=== PATIENT | female | born 1935 | race Caucasian/White ===

== ENCOUNTER 2021-05-17 19:56 | Inpatient (IN) | payer OTHER, SELFPAY ==
--- OUTSIDE RECORDS SUMMARY | 2021-05-17 20:00 | XMS REPORT | Continuity of Care Document ---
:1935 Author Organization [facility] t Address [address] [place] [address] Care Team Providers Name Role Phone Unavailable Unavailable Unavailable Payers Payer Name Policy Type Policy Number Effective Date Expiration Date S ource Problems This patient has no known problems. Allergies, Adverse Reactions, Alerts Allergy Allergy Status Severity Reaction(s) Onset Inactive Treating Comm ents Source Name Type Date Date Clinician [place] DA Active U [facility] [place] [facility]: d 00 [facility] peanut FA Active U [facility] 11-25 [place] 00:00: d 00 [facility] chocolat FA Active [facility] flavor 11-25 [place] 00:00: d 00 [facility] tree nut FA Active U [facility] 11-25 [place] 00:00: d 00 [facility] chocolat FA Active U 2016-11 [facility] flavor 01-02 [place] 00:00: d 00 [facility] Penicill DA Active U 2016-11 [facility] ins 12-23 [place] 00:00: d 00 [facility] peanut FA Active U 2016-11 [facility] 12-23 [place] 00:00: d 00 [facility] tree nut FA Active U 2016-11 [facility] 12-23 [place] 00:[facility]: d 00 [facility] Medications This patient has no known medications. Procedures This patient has no known procedures. Results Test Description Test Time Test Comments Results Result Comments Source BASIC METABOLIC PANEL 2019-12-10 06:30:00 Test Item Value Reference Range Interpretation Comme nts SODIUM (test code = NA) 133 mmol/L 137-145 L POTASSIUM (test code = K) 4.4 mmol/L 3.4-5.0 N CHLORIDE (test code = CL) 100 mmol/L 98-107 N CARBON DIOXIDE (test code = 28 mmol/L 22-30 N CO2) GLUCOSE (test code = GLU) 87 mg/dL 74-106 N BLOOD UREA NITROGEN (test code 25 mg/dL 7-17 H = BUN) GLOMERULAR FILTRATION RATE 126 >60 T he estimated glomerular (test code = GFR) filtration rate is computed usingpatient ra ce, age (>18), sex, and serum creatinine. If anyof the neede d data elements are missing the Laboratory cannot compute an estimation of the glomerular filtration rate. CREATININE (test code = CREAT) 0.5 mg/dL 0.5-1.0 N CALCIUM (test code = CA) 8.5 mg/dL 8.4-10.2 N Spec Comments: Order to be discontinued when PN is stoppedComments to Phleb: IF not already drawn [id number] 06:30:00 Test Item Value Reference Range Interpretation Comments PHOSPHOROUS (test code = PHOS) 4.2 mg/dL 2.5-4.5 N Spec Comments: Order to be discontinued when PN is stoppedComments to Phleb: IF not already drawn [id number] 06:30:00 Test Item Value Reference Range Interpretation Comments MAGNESIUM (test code = MAG) 2.0 mg/dL 1.6-2.3 N Spec Comments: Order to be discontinued when PN is stoppedComments to Phleb: IF not already drawn todayCBC W/AUTO [id number] 05:59:00 Test Item Value Reference Range Interpretation Comments WHITE BLOOD CELL (test code = 9.0 x10 3/uL 5.0-12.0 N WBC) RED BLOOD CELL (test code = 2.76 x10 6/uL 4.20-5.40 L RBC) HEMOGLOBIN (test code = HGB) 8.3 g/dL 12.0-16.0 L HEMATOCRIT (test code = HCT) 26.3 % 36.0-46.0 L MEAN CELL VOLUME (test code = 95 fL 81-99 N MCV) MEAN CELL HGB (test code = MCH) 30.1 pg 27-31 N MEAN CELL HGB CONCENTRATION 31.6 g/dL 33-37 L (test code = MCHC) RED CELL DISTRIBUTION WIDTH 15.5 % 11.5-15.5 N (test code = RDW) PLATELET COUNT (test code = 622 x10 3/uL 130-400 H PLT) MEAN PLATELET VOLUME (test code 10.6 fL 9.4-16.4 N = MPV) NEUTROPHIL % (test code = NT%) 73.4 % 43-65 H IMMATURE GRANULOCYTE % (test 0.4 % 0.0-2.0 N code = IG%) LYMPHOCYTE % (test code = LY%) 12.6 % 20.5-45.5 L MONOCYTE % (test code = MO%) 11.9 % 5.5-11.7 H EOSINOPHIL % (test code = EO%) 1.3 % 0.9-2.9 N BASOPHIL % (test code = BA%) 0.4 % 0.2-1.0 N NUCLEATED RBC % (test code = 0.0 % 0-1.0 N NRBC%) NEUTROPHIL # (test code = NT#) 6.60 x10 3/uL 2.2-4.8 H IMMATURE GRANULOCYTE # (test 0.04 x10 3/uL 0-0.03 H code = IG#) LYMPHOCYTE # (test code = LY#) 1.13 x10 3/uL 1.3-2.9 L MONOCYTE # (test code = MO#) 1.07 x10 3/uL 0.3-0.8 H EOSINOPHIL # (test code = EO#) 0.12 x10 3/uL 0.0-0.2 N BASOPHIL # (test code = BA#) 0.04 x10 3/uL 0.0-0.1 N Spec Comments: Order to be discontinued when PN is stoppedComments to Phleb: IF not already drawn [id number] 05:10:00 Test Item Value Reference Range Interpretation Comments PREALBUMIN (test code = PREALB) 11.01 mg/dL 17.6-36.0 L Spec Comments: DAY 3BASIC METABOLIC [id number] 05:08:00 Test Item Value Reference Range Interpretation Comments SODIUM (test code = 134 mmol/L 137-145 L NA) POTASSIUM (test code 4.4 mmol/L 3.4-5.0 N = K) CHLORIDE (test code 99 mmol/L 98-107 N = CL) CARBON DIOXIDE (test 31 mmol/L 22-30 H code = CO2) GLUCOSE (test code = 104 mg/dL 74-106 N GLU) BLOOD UREA NITROGEN 14 mg/dL 7-17 N (test code = BUN) GLOMERULAR 126 >60 The estimated FILTRATION RATE glomerular f iltration (test code = GFR) rate is co mputed usingpatient ra ce, age (>18), sex, and serum creatinine. If anyof the needed data elements are mi ssing the Laboratory cannot compute an giovanni mation of the glomerul ar filtration rate . CREATININE (test < 0.5 mg/dL 0.5-1.0 L code = CREAT) CALCIUM (test code = 8.5 mg/dL 8.4-10.2 N CA) Spec Comments: Order to be discontinued when PN is stoppedComments to Phleb: IF not already drawn todaySpec Comments: [id number] 05:08:00 Test Item Value Reference Range Interpretation Comments PHOSPHOROUS (test code = PHOS) 4.1 mg/dL 2.5-4.5 N Spec Comments: Order to be discontinued when PN is stoppedComments to Phleb: IF not already drawn todaySpec Comments: [id number] 05:08:00 Test Item Value Reference Range Interpretation Comments TRIGLYCERIDES (test 117 mg/dL TRIGLYCE RIDES code = TRIG) REFERENCE RANGE:Normal: < 150 mg/dLBorderline High: 150-199 mg/dLHi gh: 200-499 mg/dLVe ry High: >=500 mg/ dL Spec Comments: Order to be discontinued when PN is stoppedComments to Phleb: IF not already drawn todaySpec Comments: [id number] 05:08:00 Test Item Value Reference Range Interpretation Comments MAGNESIUM (test code = MAG) 2.2 mg/dL 1.6-2.3 N Spec Comments: Order to be discontinued when PN is stoppedComments to Phleb: IF not already drawn todaySpec Comments: [id number] 04:56:00 Test Item Value Reference Range Interpretation Comments PROTHROMBIN TIME 12.6 SECONDS 9.2-12.1 H PATIENT (test code = PTP) INTERNATIONAL NORMAL 1.2 The INR is to be used RATIO (test code = only for monitoring INR) ORAL ANTICOAGULANTTH ERAPY. Indicati on INR Value1. Prophylaxis/danette atment of: Venous Thrombosis, Pul monary Embolism 2.0 - 3.02. Preventi on of systemic emboli sm from: Tiss ue heart valves 2.0 - 3.0 Acute myocardial infa rction (to present systemic emboli sm)* 2.0 - 3.0 Valvular heart disease 2.0 - 3.0 Atrial fibrillation 2.0 - 3.03. Poultry Breeder al prosthetic valv es (high risk) 2.5 - 3.5 * If oral anticoagulant t herapy is elected to preventrecurren t myocardial infa rction, an INR of 2.5-3 .5 isrecommended, consistent with Food and Drug Administrationr ecommen dations. IS PATIENT ON ANTICOAGULANTS ? YESLIST ANTICOAGULANT/ANTI PLT MEDICATION: Enoxaprin (Lovenox)Spec Comments: day 3CBC W/AUTO [id number] 04:54:00 Test Item Value Reference Range Interpretation Comments WHITE BLOOD CELL (test code = 10.8 x10 3/uL 5.0-12.0 N WBC) RED BLOOD CELL (test code = 2.85 x10 6/uL 4.20-5.40 L RBC) HEMOGLOBIN (test code = HGB) 9.0 g/dL 12.0-16.0 L HEMATOCRIT (test code = HCT) 26.7 % 36.0-46.0 L MEAN CELL VOLUME (test code = 94 fL 81-99 N MCV) MEAN CELL HGB (test code = MCH) 31.6 pg 27-31 H MEAN CELL HGB CONCENTRATION 33.7 g/dL 33-37 N (test code = MCHC) RED CELL DISTRIBUTION WIDTH 15.2 % 11.5-15.5 N (test code = RDW) PLATELET COUNT (test code = 655 x10 3/uL 130-400 H PLT) MEAN PLATELET VOLUME (test code 10.5 fL 9.4-16.4 N = MPV) NEUTROPHIL % (test code = NT%) 78.4 % 43-65 H IMMATURE GRANULOCYTE % (test 0.6 % 0.0-2.0 N code = IG%) LYMPHOCYTE % (test code = LY%) 10.1 % 20.5-45.5 L MONOCYTE % (test code = MO%) 9.3 % 5.5-11.7 N EOSINOPHIL % (test code = EO%) 1.1 % 0.9-2.9 N BASOPHIL % (test code = BA%) 0.5 % 0.2-1.0 N NUCLEATED RBC % (test code = 0.0 % 0-1.0 N NRBC%) NEUTROPHIL # (test code = NT#) 8.45 x10 3/uL 2.2-4.8 H IMMATURE GRANULOCYTE # (test 0.06 x10 3/uL 0-0.03 H code = IG#) LYMPHOCYTE # (test code = LY#) 1.09 x10 3/uL 1.3-2.9 L MONOCYTE # (test code = MO#) 1.00 x10 3/uL 0.3-0.8 H EOSINOPHIL # (test code = EO#) 0.12 x10 3/uL 0.0-0.2 N BASOPHIL # (test code = BA#) 0.05 x10 3/uL 0.0-0.1 N - XR ABDOMEN 1 [id number] 11:33:00 [place]: St: ADM Name: JOON MILLER [facility] : 1935 Age/S: 84/F [address] Unit#: [id number] Loc: C.[address] [place] [address] Phys: Karoline Koehler [facility] Acct: [id number] Dis Date: Status: ADM IN PHONE #: [phone] Exam Date: 12/08/2019 1100 FAX #: [phone] Reason: ILEUS EXAMS: CPT CODE: [id number] XR ABDOMEN 1 V [id number] EXAM: Abdomen 1 view LOCATION: [id number]: ILEUS COMPARISON: 12/04/2019 FINDINGS: Single frontal viewof the abdomen. Unchanged gas-filled loops of central small bowel. Contrast is identified throughout the colon. No suspicious calcifications identified. No acute osseous findings. IMPRESSION: Unchanged gas-filled loops of central small bowel. Contrast has progressed to the rectosigmoid. at 1133 Reported and signed by: Girish DOTY, Kishore CC: Technologist: Nimo Westfall; STUDENT 2ND YEAR Trnscrd Date/Time/By: 12/08/2019 (7884) : By: ValeriaHV2 PAGE 1 Signed Report [place]: St: ADM Name: JOON MILLER [facility] : 1935 Age/S: 84/F [address] Unit #: [id number] Loc: C.[address] [place] [address] Phys: Karoline Koehler [facility] Acct: [id number] Dis Date: Status: ADM IN PHONE #: [phone] Exam Date: 12/08/2019 1100 FAX #: [phone] Reason: ILEUS EXAMS: CPT CODE: [id number] XR ABDOMEN 1 V [id number] <Continued> Orig Print D/T: S: 12/08/2019 (6096) PAGE 2 Signed ReportBASIC METABOLIC [id number] 06:10:00 Test Item Value Reference Range Interpretation Comments SODIUM (test code = 135 mmol/L 137-145 L NA) POTASSIUM (test code 4.2 mmol/L 3.4-5.0 N = K) CHLORIDE (test code 100 mmol/L 98-107 N = CL) CARBON DIOXIDE (test 29 mmol/L 22-30 N code = CO2) GLUCOSE (test code = 114 mg/dL 74-106 H GLU) BLOOD UREA NITROGEN 15 mg/dL 7-17 N (test code = BUN) GLOMERULAR 126 >60 The estimated FILTRATION RATE glomerular f iltration (test code = GFR) rate is co mputed usingpatient ra ce, age (>18), sex, and serum creatinine. If anyof the needed data elements are mi ssing the Laboratory cannot compute an giovanni mation of the glomerul ar filtration rate . CREATININE (test < 0.5 mg/dL 0.5-1.0 L code = CREAT) CALCIUM (test code = 8.2 mg/dL 8.4-10.2 L CA) Spec Comments: IF not already drawn todaySpec Comments: [id number] 2019-12-08 06:10:00 Test Item Value Reference Range Interpretation Comments PHOSPHOROUS (test code = PHOS) 3.9 mg/dL 2.5-4.5 N Spec Comments: IF not already drawn todaySpec Comments: [id number] 2019-12-08 06:10:00 Test Item Value Reference Range Interpretation Comments TRIGLYCERIDES (test 123 mg/dL TRIGLYCE RIDES code = TRIG) REFERENCE RANGE:Normal: < 150 mg/dLBorderline High: 150-199 mg/dLHi gh: 200-499 mg/dLVe ry High: >=500 mg/ dL Spec Comments: IF not already drawn todaySpec Comments: [id number] 06:10:00 Test Item Value Reference Range Interpretation Comments MAGNESIUM (test code = MAG) 2.3 mg/dL 1.6-2.3 N Spec Comments: IF not already drawn todaySpec Comments: [id number] [id number] 06:02:00 Test Item Value Reference Range Interpretation Comments SODIUM (test code = 135 mmol/L 137-145 L NA) POTASSIUM (test code 4.2 mmol/L 3.4-5.0 N = K) CHLORIDE (test code 100 mmol/L 98-107 N = CL) CARBON DIOXIDE (test 29 mmol/L 22-30 N code = CO2) GLUCOSE (test code = 114 mg/dL 74-106 H GLU) BLOOD UREA NITROGEN 15 mg/dL 7-17 N (test code = BUN) GLOMERULAR 126 >60 The estimated FILTRATION RATE glomerular f iltration (test code = GFR) rate is co mputed usingpatient ra ce, age (>18), sex, and serum creatinine. If anyof the needed data elements are mi ssing the Laboratory cannot compute an giovanni mation of the glomerul ar filtration rate . CREATININE (test < 0.5 mg/dL 0.5-1.0 L code = CREAT) CALCIUM (test code = 8.2 mg/dL 8.4-10.2 L CA) Spec Comments: IF not already drawn todaySpec Comments: [id number] 2019-12-08 06:02:00 Test Item Value Reference Range Interpretation Comments PHOSPHOROUS (test code = PHOS) mg/dL 2.5-4.5 Spec Comments: IF not already drawn todaySpec Comments: [id number] 2019-12-08 06:02:00 Test Item Value Reference Range Interpretation Comments TRIGLYCERIDES (test code = TRIG) mg/dL Spec Comments: IF not already drawn todaySpec Comments: [id number] 06:02:00 Test Item Value Reference Range Interpretation Comments MAGNESIUM (test code = MAG) mg/dL 1.6-2.3 Spec Comments: IF not already drawn todaySpec Comments: [id number] 2019-12-08 05:47:00 Test Item Value Reference Range Interpretation Comments PROTHROMBIN TIME 12.5 SECONDS 9.2-12.1 H PATIENT (test code = PTP) INTERNATIONAL NORMAL 1.2 The INR is to be used RATIO (test code = only for monitoring INR) ORAL ANTICOAGULANTTH ERAPY. Indicati on INR Value1. Prophylaxis/danette atment of: Venous Thrombosis, Pul monary Embolism 2.0 - 3.02. Preventi on of systemic emboli sm from: Tiss ue heart valves 2.0 - 3.0 Acute myocardial infa rction (to present systemic emboli sm)* 2.0 - 3.0 Valvular heart disease 2.0 - 3.0 Atrial fibrillation 2.0 - 3.03. Poultry Breeder al prosthetic valv es (high risk) 2.5 - 3.5 * If oral anticoagulant t herapy is elected to preventrecurren t myocardial infa rction, an INR of 2.5-3 .5 isrecommended, consistent with Food and Drug Administrationr ecommen dations. IS PATIENT ON ANTICOAGULANTS ? YESLIST ANTICOAGULANT/ANTI PLT MEDICATION: Enoxaprin (Lovenox)Spec Comments: [id number] W/AUTO [id number] 05:39:00 Test Item Value Reference Range Interpretation Comments WHITE BLOOD CELL (test code = 13.7 x10 3/uL 5.0-12.0 H WBC) RED BLOOD CELL (test code = 3.05 x10 6/uL 4.20-5.40 L RBC) HEMOGLOBIN (test code = HGB) 9.3 g/dL 12.0-16.0 L HEMATOCRIT (test code = HCT) 29.0 % 36.0-46.0 L MEAN CELL VOLUME (test code = 95 fL 81-99 N MCV) MEAN CELL HGB (test code = 30.5 pg 27-31 N MCH) MEAN CELL HGB CONCENTRATION 32.1 g/dL 33-37 L (test code = MCHC) RED CELL DISTRIBUTION WIDTH 15.7 % 11.5-15.5 H (test code = RDW) PLATELET COUNT (test code = 562 x10 3/uL 130-400 H PLT) MEAN PLATELET VOLUME (test 10.3 fL 9.4-16.4 N code = MPV) NEUTROPHIL % (test code = NT%) 82.0 % 43-65 H IMMATURE GRANULOCYTE % (test 0.5 % 0.0-2.0 N code = IG%) LYMPHOCYTE % (test code = LY%) 7.6 % 20.5-45.5 L MONOCYTE % (test code = MO%) 8.9 % 5.5-11.7 N EOSINOPHIL % (test code = EO%) 0.7 % 0.9-2.9 L BASOPHIL % (test code = BA%) 0.3 % 0.2-1.0 N NUCLEATED RBC % (test code = 0.0 % 0-1.0 N NRBC%) NEUTROPHIL # (test code = NT#) 11.26 x10 3/uL 2.2-4.8 H IMMATURE GRANULOCYTE # (test 0.07 x10 3/uL 0-0.03 H code = IG#) LYMPHOCYTE # (test code = LY#) 1.04 x10 3/uL 1.3-2.9 L MONOCYTE # (test code = MO#) 1.22 x10 3/uL 0.3-0.8 H EOSINOPHIL # (test code = EO#) 0.09 x10 3/uL 0.0-0.2 N BASOPHIL # (test code = BA#) 0.04 x10 3/uL 0.0-0.1 N BASIC METABOLIC [id number] 05:30:00 Test Item Value Reference Range Interpretation Comments SODIUM (test code = 135 mmol/L 137-145 L NA) POTASSIUM (test code 4.3 mmol/L 3.4-5.0 N = K) CHLORIDE (test code 98 mmol/L 98-107 N = CL) CARBON DIOXIDE (test 31 mmol/L 22-30 H code = CO2) GLUCOSE (test code = 104 mg/dL 74-106 N GLU) BLOOD UREA NITROGEN 12 mg/dL 7-17 N (test code = BUN) GLOMERULAR 126 >60 The estimated FILTRATION RATE glomerular f iltration (test code = GFR) rate is co mputed usingpatient ra ce, age (>18), sex, and serum creatinine. If anyof the needed data elements are mi ssing the Laboratory cannot compute an giovanni mation of the glomerul ar filtration rate . CREATININE (test < 0.5 mg/dL 0.5-1.0 L code = CREAT) CALCIUM (test code = 8.7 mg/dL 8.4-10.2 N CA) [id number] 05:30:00 Test Item Value Reference Range Interpretation Comments PHOSPHOROUS (test code = PHOS) 4.2 mg/dL 2.5-4.5 N [id number] 05:30:00 Test Item Value Reference Range Interpretation Comments MAGNESIUM (test code = MAG) 2.2 mg/dL 1.6-2.3 N BASIC METABOLIC [id number] 05:28:00 Test Item Value Reference Range Interpretation Comments SODIUM (test code = 135 mmol/L 137-145 L NA) POTASSIUM (test code 4.3 mmol/L 3.4-5.0 N = K) CHLORIDE (test code 98 mmol/L 98-107 N = CL) CARBON DIOXIDE (test 31 mmol/L 22-30 H code = CO2) GLUCOSE (test code = 104 mg/dL 74-106 N GLU) BLOOD UREA NITROGEN 12 mg/dL 7-17 N (test code = BUN) GLOMERULAR 126 >60 The estimated FILTRATION RATE glomerular f iltration (test code = GFR) rate is co mputed usingpatient ra ce, age (>18), sex, and serum creatinine. If anyof the needed data elements are mi ssing the Laboratory cannot compute an giovanni mation of the glomerul ar filtration rate . CREATININE (test < 0.5 mg/dL 0.5-1.0 L code = CREAT) CALCIUM (test code = 8.7 mg/dL 8.4-10.2 N CA) [id number] 05:28:00 Test Item Value Reference Range Interpretation Comments PHOSPHOROUS (test code = PHOS) mg/dL 2.5-4.5 [id number] 05:28:00 Test Item Value Reference Range Interpretation Comments MAGNESIUM (test code = MAG) mg/dL 1.6-2.3 CBC W/AUTO [id number] 05:24:00 Test Item Value Reference Range Interpretation Comments WHITE BLOOD CELL (test code = 13.6 x10 3/uL 5.0-12.0 H WBC) RED BLOOD CELL (test code = 3.16 x10 6/uL 4.20-5.40 L RBC) HEMOGLOBIN (test code = HGB) 9.7 g/dL 12.0-16.0 L HEMATOCRIT (test code = HCT) 29.7 % 36.0-46.0 L MEAN CELL VOLUME (test code = 94 fL 81-99 N MCV) MEAN CELL HGB (test code = 30.7 pg 27-31 N MCH) MEAN CELL HGB CONCENTRATION 32.7 g/dL 33-37 L (test code = MCHC) RED CELL DISTRIBUTION WIDTH 15.3 % 11.5-15.5 N (test code = RDW) PLATELET COUNT (test code = 559 x10 3/uL 130-400 H PLT) MEAN PLATELET VOLUME (test 10.3 fL 9.4-16.4 N code = MPV) NEUTROPHIL % (test code = NT%) 80.6 % 43-65 H IMMATURE GRANULOCYTE % (test 0.4 % 0.0-2.0 N code = IG%) LYMPHOCYTE % (test code = LY%) 8.0 % 20.5-45.5 L MONOCYTE % (test code = MO%) 10.1 % 5.5-11.7 N EOSINOPHIL % (test code = EO%) 0.7 % 0.9-2.9 L BASOPHIL % (test code = BA%) 0.2 % 0.2-1.0 N NUCLEATED RBC % (test code = 0.0 % 0-1.0 N NRBC%) NEUTROPHIL # (test code = NT#) 10.97 x10 3/uL 2.2-4.8 H IMMATURE GRANULOCYTE # (test 0.06 x10 3/uL 0-0.03 H code = IG#) LYMPHOCYTE # (test code = LY#) 1.09 x10 3/uL 1.3-2.9 L MONOCYTE # (test code = MO#) 1.37 x10 3/uL 0.3-0.8 H EOSINOPHIL # (test code = EO#) 0.09 x10 3/uL 0.0-0.2 N BASOPHIL # (test code = BA#) 0.03 x10 3/uL 0.0-0.1 N BASIC METABOLIC [id number] 06:29:00 Test Item Value Reference Range Interpretation Comments SODIUM (test code = 135 mmol/L 137-145 L NA) POTASSIUM (test code 4.2 mmol/L 3.4-5.0 N = K) CHLORIDE (test code 99 mmol/L 98-107 N = CL) CARBON DIOXIDE (test 31 mmol/L 22-30 H code = CO2) GLUCOSE (test code = 100 mg/dL 74-106 N GLU) BLOOD UREA NITROGEN 14 mg/dL 7-17 N (test code = BUN) GLOMERULAR 126 >60 The estimated FILTRATION RATE glomerular f iltration (test code = GFR) rate is co mputed usingpatient ra ce, age (>18), sex, and serum creatinine. If anyof the needed data elements are mi ssing the Laboratory cannot compute an giovanni mation of the glomerul ar filtration rate . CREATININE (test < 0.5 mg/dL 0.5-1.0 L code = CREAT) CALCIUM (test code = 8.4 mg/dL 8.4-10.2 N CA) [id number] 06:29:00 Test Item Value Reference Range Interpretation Comments PHOSPHOROUS (test code = PHOS) 4.1 mg/dL 2.5-4.5 N [id number] 06:29:00 Test Item Value Reference Range Interpretation Comments MAGNESIUM (test code = MAG) 2.2 mg/dL 1.6-2.3 N BASIC METABOLIC [id number] 06:28:00 Test Item Value Reference Range Interpretation Comments SODIUM (test code = 135 mmol/L 137-145 L NA) POTASSIUM (test code 4.2 mmol/L 3.4-5.0 N = K) CHLORIDE (test code 99 mmol/L 98-107 N = CL) CARBON DIOXIDE (test 31 mmol/L 22-30 H code = CO2) GLUCOSE (test code = 100 mg/dL 74-106 N GLU) BLOOD UREA NITROGEN 14 mg/dL 7-17 N (test code = BUN) GLOMERULAR 126 >60 The estimated FILTRATION RATE glomerular f iltration (test code = GFR) rate is co mputed usingpatient ra ce, age (>18), sex, and serum creatinine. If anyof the needed data elements are mi ssing the Laboratory cannot compute an giovanni mation of the glomerul ar filtration rate . CREATININE (test < 0.5 mg/dL 0.5-1.0 L code = CREAT) CALCIUM (test code = 8.4 mg/dL 8.4-10.2 N CA) [id number] 06:28:00 Test Item Value Reference Range Interpretation Comments PHOSPHOROUS (test code = PHOS) mg/dL 2.5-4.5 [id number] 06:28:00 Test Item Value Reference Range Interpretation Comments MAGNESIUM (test code = MAG) mg/dL 1.6-2.3 CBC W/AUTO [id number] 06:00:00 Test Item Value Reference Range Interpretation Comments WHITE BLOOD CELL (test code = 13.4 x10 3/uL 5.0-12.0 H WBC) RED BLOOD CELL (test code = 3.02 x10 6/uL 4.20-5.40 L RBC) HEMOGLOBIN (test code = HGB) 9.1 g/dL 12.0-16.0 L HEMATOCRIT (test code = HCT) 28.7 % 36.0-46.0 L MEAN CELL VOLUME (test code = 95 fL 81-99 N MCV) MEAN CELL HGB (test code = 30.1 pg 27-31 N MCH) MEAN CELL HGB CONCENTRATION 31.7 g/dL 33-37 L (test code = MCHC) RED CELL DISTRIBUTION WIDTH 15.7 % 11.5-15.5 H (test code = RDW) PLATELET COUNT (test code = 467 x10 3/uL 130-400 H PLT) MEAN PLATELET VOLUME (test 10.7 fL 9.4-16.4 N code = MPV) NEUTROPHIL % (test code = NT%) 79.3 % 43-65 H IMMATURE GRANULOCYTE % (test 0.4 % 0.0-2.0 N code = IG%) LYMPHOCYTE % (test code = LY%) 10.6 % 20.5-45.5 L MONOCYTE % (test code = MO%) 8.7 % 5.5-11.7 N EOSINOPHIL % (test code = EO%) 0.9 % 0.9-2.9 N BASOPHIL % (test code = BA%) 0.1 % 0.2-1.0 L NUCLEATED RBC % (test code = 0.0 % 0-1.0 N NRBC%) NEUTROPHIL # (test code = NT#) 10.61 x10 3/uL 2.2-4.8 H IMMATURE GRANULOCYTE # (test 0.06 x10 3/uL 0-0.03 H code = IG#) LYMPHOCYTE # (test code = LY#) 1.42 x10 3/uL 1.3-2.9 N MONOCYTE # (test code = MO#) 1.16 x10 3/uL 0.3-0.8 H EOSINOPHIL # (test code = EO#) 0.12 x10 3/uL 0.0-0.2 N BASOPHIL # (test code = BA#) 0.02 x10 3/uL 0.0-0.1 N BASIC METABOLIC [id number] 07:05:00 Test Item Value Reference Range Interpretation Comments SODIUM (test code = 136 mmol/L 137-145 L NA) POTASSIUM (test code 4.3 mmol/L 3.4-5.0 N = K) CHLORIDE (test code 100 mmol/L 98-107 N = CL) CARBON DIOXIDE (test 33 mmol/L 22-30 H code = CO2) GLUCOSE (test code = 109 mg/dL 74-106 H GLU) BLOOD UREA NITROGEN 20 mg/dL 7-17 H (test code = BUN) GLOMERULAR 126 >60 The estimated FILTRATION RATE glomerular f iltration (test code = GFR) rate is co mputed usingpatient ra ce, age (>18), sex, and serum creatinine. If anyof the needed data elements are mi ssing the Laboratory cannot compute an giovanni mation of the glomerul ar filtration rate . CREATININE (test < 0.5 mg/dL 0.5-1.0 L code = CREAT) CALCIUM (test code = 8.3 mg/dL 8.4-10.2 L CA) [id number] 07:05:00 Test Item Value Reference Range Interpretation Comments PHOSPHOROUS (test code = PHOS) 3.8 mg/dL 2.5-4.5 N [id number] 07:05:00 Test Item Value Reference Range Interpretation Comments TRIGLYCERIDES (test 139 mg/dL TRIGLYCE RIDES code = TRIG) REFERENCE RANGE:Normal: < 150 mg/dLBorderline High: 150-199 mg/dLHi gh: 200-499 mg/dLVe ry High: >=500 mg/ dL [id number] 07:05:00 Test Item Value Reference Range Interpretation Comments MAGNESIUM (test code = MAG) 2.4 mg/dL 1.6-2.3 H [id number] 07:05:00 Test Item Value Reference Range Interpretation Comments PREALBUMIN (test code = PREALB) 13.60 mg/dL 17.6-36.0 L BASIC METABOLIC [id number] 06:54:00 Test Item Value Reference Range Interpretation Comments SODIUM (test code = 136 mmol/L 137-145 L NA) POTASSIUM (test code 4.3 mmol/L 3.4-5.0 N = K) CHLORIDE (test code 100 mmol/L 98-107 N = CL) CARBON DIOXIDE (test 33 mmol/L 22-30 H code = CO2) GLUCOSE (test code = 109 mg/dL 74-106 H GLU) BLOOD UREA NITROGEN 20 mg/dL 7-17 H (test code = BUN) GLOMERULAR 126 >60 The estimated FILTRATION RATE glomerular f iltration (test code = GFR) rate is co mputed usingpatient ra ce, age (>18), sex, and serum creatinine. If anyof the needed data elements are mi ssing the Laboratory cannot compute an giovanni mation of the glomerul ar filtration rate . CREATININE (test < 0.5 mg/dL 0.5-1.0 L code = CREAT) CALCIUM (test code = 8.3 mg/dL 8.4-10.2 L CA) [id number] 06:54:00 Test Item Value Reference Range Interpretation Comments PHOSPHOROUS (test code = PHOS) 3.8 mg/dL 2.5-4.5 N [id number] 06:54:00 Test Item Value Reference Range Interpretation Comments TRIGLYCERIDES (test 139 mg/dL TRIGLYCE RIDES code = TRIG) REFERENCE RANGE:Normal: < 150 mg/dLBorderline High: 150-199 mg/dLHi gh: 200-499 mg/dLVe ry High: >=500 mg/ dL [id number] 06:54:00 Test Item Value Reference Range Interpretation Comments MAGNESIUM (test code = MAG) 2.4 mg/dL 1.6-2.3 H [id number] 06:54:00 Test Item Value Reference Range Interpretation Comments PREALBUMIN (test code = PREALB) mg/dL 17.6-36.0 PROTHROMBIN [id number] 06:40:00 Test Item Value Reference Range Interpretation Comments PROTHROMBIN TIME 11.9 SECONDS 9.2-12.1 N PATIENT (test code = PTP) INTERNATIONAL NORMAL 1.1 The INR is to be used RATIO (test code = only for monitoring INR) ORAL ANTICOAGULANTTH ERAPY. Indicati on INR Value1. Prophylaxis/danette atment of: Venous Thrombosis, Pul monary Embolism 2.0 - 3.02. Preventi on of systemic emboli sm from: Tiss ue heart valves 2.0 - 3.0 Acute myocardial infa rction (to present systemic emboli sm)* 2.0 - 3.0 Valvular heart disease 2.0 - 3.0 Atrial fibrillation 2.0 - 3.03. Poultry Breeder al prosthetic valv es (high risk) 2.5 - 3.5 * If oral anticoagulant t herapy is elected to preventrecurren t myocardial infa rction, an INR of 2.5-3 .5 isrecommended, consistent with Food and Drug Administrationr ecommen dations. IS PATIENT ON ANTICOAGULANTS ? NOCBC W/AUTO [id number] 06:36:00 Test Item Value Reference Range Interpretation Comments WHITE BLOOD CELL (test code = 13.2 x10 3/uL 5.0-12.0 H WBC) RED BLOOD CELL (test code = 2.94 x10 6/uL 4.20-5.40 L RBC) HEMOGLOBIN (test code = HGB) 9.0 g/dL 12.0-16.0 L HEMATOCRIT (test code = HCT) 28.0 % 36.0-46.0 L MEAN CELL VOLUME (test code = 95 fL 81-99 N MCV) MEAN CELL HGB (test code = 30.6 pg 27-31 N MCH) MEAN CELL HGB CONCENTRATION 32.1 g/dL 33-37 L (test code = MCHC) RED CELL DISTRIBUTION WIDTH 15.4 % 11.5-15.5 N (test code = RDW) PLATELET COUNT (test code = 396 x10 3/uL 130-400 N PLT) MEAN PLATELET VOLUME (test 10.8 fL 9.4-16.4 N code = MPV) NEUTROPHIL % (test code = NT%) 80.0 % 43-65 H IMMATURE GRANULOCYTE % (test 0.6 % 0.0-2.0 N code = IG%) LYMPHOCYTE % (test code = LY%) 8.8 % 20.5-45.5 L MONOCYTE % (test code = MO%) 9.0 % 5.5-11.7 N EOSINOPHIL % (test code = EO%) 1.4 % 0.9-2.9 N BASOPHIL % (test code = BA%) 0.2 % 0.2-1.0 N NUCLEATED RBC % (test code = 0.0 % 0-1.0 N NRBC%) NEUTROPHIL # (test code = NT#) 10.52 x10 3/uL 2.2-4.8 H IMMATURE GRANULOCYTE # (test 0.08 x10 3/uL 0-0.03 H code = IG#) LYMPHOCYTE # (test code = LY#) 1.16 x10 3/uL 1.3-2.9 L MONOCYTE # (test code = MO#) 1.18 x10 3/uL 0.3-0.8 H EOSINOPHIL # (test code = EO#) 0.19 x10 3/uL 0.0-0.2 N BASOPHIL # (test code = BA#) 0.02 x10 3/uL 0.0-0.1 N - XR ABDOMEN [id number] 16:55:00 FAX: Aravind Gamble MD [phone] [place]: [address]: ADM Name: JOON MILLER [facility] : 1935 Age/S: 84/F [address] Unit#: [id number] Loc: C.[address] [place] [address] Phys: Aravind Vergara MD Acct: [id number] Dis Date: Status: ADM IN PHONE #: [phone] Exam Date: 12/04/2019 1635 FAX #: [phone] Reason: R/O ILEUS EXAMS: CPT CODE: [id number] XR ABDOMEN 2V 52425 EXAM: Abdominal xray INDICATION: R/O ILEUS LOCATION CODE: C3 COMPARISON: 12/03/2019 TECHNIQUE: 2 views, Supine and upright abdominal radiographs. DISCUSSION: Residual enteric contrast is still in the distal small bowel and colon extending to the splenic flexure. 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 No subdiaphragmatic free air. Osseous structure demonstrate degenerative changes of lumbar spine. IMPRESSION: 1. Status post laparotomy. 2. Delayed progression of enteric contrast. at 1655 Reported and signed by: Gucci Robert M.D. CC: Aravind Vergara MD Technologist: LUCRETIA YU RT (R) Trnscrd Date/Time/By: 12/04/2019 (0894): By: ValeriaHPD PAGE 1 Signed Report FAX: Aravind Gamble MD [phone] [place]: St: [facility]: [facility] 1935 Age/S: 84/F [address] Unit #: [id number] Loc: C.[address] [place] [address] Phys: Aravind Vergara MD Acct: [id number] Dis Date: Status: ADM IN PHONE #: [phone] Exam Date: 12/04/2019 1635 FAX #: [phone] Reason: R/O ILEUS EXAMS: CPT CODE: [id number] XR ABDOMEN 2V 53888 <Continued> Orig Print D/T: S: 12/04/2019 (6018) PAGE 2 Signed ReportBASIC METABOLIC [id number] 05:46:00 Test Item Value Reference Range Interpretation Comments SODIUM (test code = 137 mmol/L 137-145 N NA) POTASSIUM (test code 4.0 mmol/L 3.4-5.0 N = K) CHLORIDE (test code = 101 mmol/L 98-107 N CL) CARBON DIOXIDE (test 32 mmol/L 22-30 H code = CO2) GLUCOSE (test code = 92 mg/dL 74-106 N GLU) BLOOD UREA NITROGEN 21 mg/dL 7-17 H (test code = BUN) GLOMERULAR FILTRATION 126 >60 The es timated RATE (test code = glomerular filtration GFR) rate is compute d usingpatient ra ce, age (>18), sex, and serum creatinine. If anyof the needed data elements are mi ssing the Laboratory cannot compute an giovanni mation of the glomerul ar filtration rate . CREATININE (test code 0.5 mg/dL 0.5-1.0 N = CREAT) CALCIUM (test code = 8.3 mg/dL 8.4-10.2 L CA) [id number] 05:46:00 Test Item Value Reference Range Interpretation Comments PHOSPHOROUS (test code = PHOS) 4.3 mg/dL 2.5-4.5 N [id number] 05:46:00 Test Item Value Reference Range Interpretation Comments MAGNESIUM (test code = MAG) 2.1 mg/dL 1.6-2.3 N CBC W/AUTO [id number] 05:31:00 Test Item Value Reference Range Interpretation Comments WHITE BLOOD CELL (test code = 12.0 x10 3/uL 5.0-12.0 N WBC) RED BLOOD CELL (test code = 3.01 x10 6/uL 4.20-5.40 L RBC) HEMOGLOBIN (test code = HGB) 9.2 g/dL 12.0-16.0 L HEMATOCRIT (test code = HCT) 28.4 % 36.0-46.0 L MEAN CELL VOLUME (test code = 94 fL 81-99 N MCV) MEAN CELL HGB (test code = MCH) 30.6 pg 27-31 N MEAN CELL HGB CONCENTRATION 32.4 g/dL 33-37 L (test code = MCHC) RED CELL DISTRIBUTION WIDTH 15.3 % 11.5-15.5 N (test code = RDW) PLATELET COUNT (test code = 350 x10 3/uL 130-400 N PLT) MEAN PLATELET VOLUME (test code 10.9 fL 9.4-16.4 N = MPV) NEUTROPHIL % (test code = NT%) 74.7 % 43-65 H IMMATURE GRANULOCYTE % (test 0.5 % 0.0-2.0 N code = IG%) LYMPHOCYTE % (test code = LY%) 14.4 % 20.5-45.5 L MONOCYTE % (test code = MO%) 8.8 % 5.5-11.7 N EOSINOPHIL % (test code = EO%) 1.6 % 0.9-2.9 N BASOPHIL % (test code = BA%) 0.0 % 0.2-1.0 L NUCLEATED RBC % (test code = 0.0 % 0-1.0 N NRBC%) NEUTROPHIL # (test code = NT#) 8.96 x10 3/uL 2.2-4.8 H IMMATURE GRANULOCYTE # (test 0.06 x10 3/uL 0-0.03 H code = IG#) LYMPHOCYTE # (test code = LY#) 1.72 x10 3/uL 1.3-2.9 N MONOCYTE # (test code = MO#) 1.05 x10 3/uL 0.3-0.8 H EOSINOPHIL # (test code = EO#) 0.19 x10 3/uL 0.0-0.2 N BASOPHIL # (test code = BA#) 0.00 x10 3/uL 0.0-0.1 N [id number] 20:55:00 Test Item Value Reference Range Interpretation Comments GLUBED (test code = GLUBED) 103 MG/DL 74-106 N [id number] 16:41:00 Test Item Value Reference Range Interpretation Comments GLUBED (test code = GLUBED) 99 MG/DL 74-106 N HERNIA [id number] 16:19:00 RUN DATE: 12/03/19 [facility] PAGE 1 RUN TIME: 1619 Specimen Inquiry RUN USER: INTERFACE PATIENT: JOON MILLER LOC: [facility] U #: [id number] AGE/SX: 84/F ROOM: [facility] RE11/26/19REG DR: Yudy Abarca DO : [birth year] BED: A DIS: STATUS: ADM IN TLOC: SPEC #: [id number] RECD: 11/27/19-1237 STATUS: ULICES HOGUE #: [id number] CHAGO: 11/26/19-[address]: Aravind Vergara MD ENTERED: 11/27/19-123 SP TYPE: HERNIA SAC OTHR DR: No Primary or Family Physician Sheila Handy MD, Ronald W MD Redmon, Jonathan Lewis MDORDERED: LEVEL II, PATHGM4, SPECSTAIN I/2, # OF BLOCKS/7, # OF SLIDES/7, IHC AB STAIN I, IHC AB STAIN II/5 TISSUES: A. HERNIA SAC - VENTRAL B. SMALL BOWEL - TISSUE CLINICAL HISTORY BOWEL OBSTRUCTION Per electronic medical record: bilateral adrenal lesions, lung left lower lobe calcified granuloma COMMENT Negative special stains do not absolutely rule out infection. FINAL MICROSCOPIC DIAGNOSIS A) VENTRAL HERNIA, HERNIORRHAPHY: HERNIA SAC WITH ACUTE AND CHRONIC INFLAMMATION B) SMALL BOWEL, PARTAL EXCISION: SEROSAL FIBROUS ADHESIONS FOCAL SUBSEROSAL XANTHOGRANULOMATOUS INFLAMMATION SPECIAL STAINS FOR ACID FAST BACILLI AND FUNGAL FORMS: NEGATIVE RESECTION MARGINS: VIABLE CPT 18734, 53226, 88485 X2, 56664, 77107 X5 GROSS DESCRIPTION Specimen A: In formalin labeled with the patient's name, medical record number and "ventral hernia sac" is a 3.5 x 2.0 x 0.6 cm pink-coombs to manley-white portion of fibromembranous and adipose tissue. Sectioning reveals no discrete masses. Ivf Embryologist sections are submitted in A1. Specimen B: Received fresh labeled with the patient's name, medical record number and "small bowel" is a 12.0 cm in length x 8.0 cm in circumference segment of small CONTINUED ON NEXT PAGE RUN DATE: 12/03/19 [facility] PAGE 2 RUN TIME: 1619 Specimen Inquiry RUN USER: INTERFACE - SPEC #: [id number] PATIENT: JOON MILLER #[id number] (Continued) GROSS DESCRIPTION (Continued) bowel. The serosal surface is purple-coombs, dusky, focally ragged and exhibits fibrous adhesions. The specimen is opened to reveal pink-coombs, dusky, focally edematous mucosa throughout. A central staple line is noted along the entire length of the specimen, with associated yellow-green exudate. No discrete masses or perforations are noted. Section Code: B1-B2, parallel resection margins; B3, community engagement representative sections of staple line; B4-B6, community engagement representative sections of small bowel. SSA/DB/tb MICROSCOPIC DESCRIPTION Immunohistochemical stains (xanthogranulomatous inflammation): positive: CD68, CD163 negative: CAM5.2, calretinin, pax8, S100 The immunohistochemistry test was developed and its performance characteristics determined by [facility] [employer]. It has not been cleared or approved by the U.S. Food and Drug Administration. The FDA has determined that such clearance or approval is not necessary. The test is used for clinical purposes. It should not be regarded as investigational or for research. This laboratory is certified under the Clinical Laboratory Improvement Amendments of 1988 (CLIA-88) as qualified to perform high- complexity clinical laboratory testing. Signed SIGNATURE ON FILE Horacio Abreu MD 12/03/19 1619 END OF REPORT [id number] 15:15:00 Test Item Value Reference Range Interpretation Comments GLUKARMEN (test code = GLUBED) 109 MG/DL 74-106 H - XR ABDOMEN [id number] 10:04:00 FAX: Aravind Gamble MD [phone] [place]: St: ADM Name: JOON MILLER [facility] : 1935 Age/S: 84/F [address] Unit#: [id number] Loc: C.[address] [place] [address] Phys: Aravind Vergara MD Acct: [id number] Dis Date: Status: ADM IN PHONE #: [phone] Exam Date: 12/03/2019 0947 FAX #: [phone] Reason: f/u ileus. s/p bowel resection EXAMS: CPT CODE: [id number] XR ABDOMEN 2V 62343 EXAM: Abdominal xray INDICATION: f/u ileus. s/pbowel resection LOCATION CODE: C3 COMPARISON: 11/29/2019TECHNIQUE: 2 views, Supine and upright abdominal radiographs. DISCUSSION: Previously noted NG tube have been removed. Patient is status post recent laparotomy. Overlying skin kandy at midline is again seen. Mildly distended loop of small bowel with residual enteric contrast is seen. Otherwise the majority of the enteric contrastappears to be within the redundant distal sigmoid colon. No subdiaphragmatic free air. No blunting and haziness silhouetting the costophrenic angle, bilaterally. Right is greater than left. IMPRESSION: 1. Interval removal NG tube. 2. Status post laparotomy. 3. Enteric contrast is extending into the distal col on. at 1004 Reported and signed by: Gucci Robert M.D. CC: Aravind Vergara MD Technologist: Nimo Westfall Trnscrd Date/Time/By: 12/03/2019 (1004) : By: ValeriaHPGladys PAGE 1 Signed Report FAX:Y Aravind Vergraa MD [phone] [place]: St: ADM Name: JOON MILLER [facility] : 1935 Age/S: 84/F [address] Unit #: [id number] Loc: C.[address] [place] [address] Phys: rAavind Vergara MD Acct: [id number] Dis Date: Status: ADM IN PHONE #: [phone] Exam Date: 12/03/2019 0947 FAX #: [phone] Reason: f/u ileus. s/p bowel resection EXAMS: CPT CODE: [id number] XR ABDOMEN 2V 82810 <Continued> Orig Print D/T: S: 12/03/2019 (1007) PAGE 2 Signed [id number] 06:18:00 Test Item Value Reference Range Interpretation Comments GLUBED (test code = GLUBED) 90 MG/DL 74-106 N CARDIAC ENZYMES [id number] 05:40:00 Test Item Value Reference Range Interpretation Comments TROPONIN-I < 0.012 ng/mL 0.012-0.033 L (test code = TROPI) Pleas e be advised of the updated reference range s for the new Chemistry instrumentation . * * VITROS TROPONIN I CRITERIANORM AL PATIENT W/O CIRCULATING TNI: 0.012-0.033 ng/mLCIRCULATIN G TNI PRESENT: 0.034- 0.119 ng/mL(MAY BE AT RISK OF AMI)AMI DIAGNOS TIC CUTOFF: >/= 0.1 20 ng/mL~~~~~~~~~~ ~~~~~~~~~~ ~~~~~~~~~~~~~~~ ~~~~~~~~~~ ~~~~~~~~~~~~~~T he use of serial sampling and testing protoco l is arecommended pr actice.An elevated tropon in level alone is often not sufficient valdez iagnosis of myocardial i nfarction. Troponin result s obtained by different as says may vary.Evaluation of the extent of myoca rdial damage based on increase of troponin wou ld be valid only if similarmethodol ogy is used.~~~~~~~~~~ ~~~~~~~~~~ ~~~~~~~~~~~~~~~ ~~~~~~~~~~ ~~~~~~~~~~~~~~ LACTIC [id number] 05:31:00 Test Item Value Reference Range Interpretation Comments LACTIC ACID (test code = LACT) 0.8 mmol/L 0.7-2.0 N [id number] 05:27:00 Test Item Value Reference Range Interpretation Comments CREATININE (test code = CREAT) < 0.5 mg/dL 0.5-1.0 L BILIRUBIN [id number] 05:27:00 Test Item Value Reference Range Interpretation Comments BILIRUBIN TOTAL (test code = BILT) 0.3 mg/dL 0.2-1.3 N PLATELET [id number] 05:16:00 Test Item Value Reference Range Interpretation Comments PLATELET COUNT (test code = PLT) 300 x10 3/uL 130-400 N UA RFLX MICR CULT IF [id number] 04:05:00 Test Item Value Reference Range Interpretation Comments UA COLOR (test code = Yellow Yellow COLU) UA APPEARANCE (test Slightly-Cloudy Clear code = APPU) UA GLUCOSE DIPSTICK Negative Negative (test code = DGLUU) UA BILIRUBIN DIPSTICK Negative Negative (test code = BILU) UA KETONE DIPSTICK Negative mg/dL Negative (test code = KETU) UA SPECIFIC GRAVITY 1.006 <1.030 (test code = SGU) UA BLOOD DIPSTICK Negative Negative (test code = YG) UA PH DIPSTICK (test 7.0 5.0-8.0 code = JUANITO) UA PROTEIN DIPSTICK NEGATIVE mg/dL Negative (test code = PROU) UA UROBILINOGEN Negative mg/dL Negative DIPSTICK (test code = URO) UA NITRITE DIPSTICK Positive Negative A (test code = DON) UA LEUKOCYTE ESTERASE NEGATIVE Negative DIPSTICK (test code = LEUU) UA WBC (test code = 0-3 /HPF <4-5 <10 WBC/ HPF = WBCUR) PYURIA ABSENT URINE CULTURE NOT INDICATED UA RBC (test code = 0-3 /HPF <4-5 RBCU) UA BACTERIA (test NONE SEEN /HPF None-Rare code = BACU) UA SQUAMOUS CELLS 0-5 (RARE) /HPF 0-5 (RARE) (test code = SQU) UA YEAST (BUDDING) 1+ /HPF None A (test code = YEASTUBD) SOURCE OF URINE: STRAIGHT CATHETERIndication for culture: Dysuria/Frequency BASIC METABOLIC [id number] 03:02:00 Test Item Value Reference Range Interpretation Comments SODIUM (test code = 137 mmol/L 137-145 N NA) POTASSIUM (test code 3.4 mmol/L 3.4-5.0 N = K) CHLORIDE (test code 104 mmol/L 98-107 N = CL) CARBON DIOXIDE (test 30 mmol/L 22-30 N code = CO2) GLUCOSE (test code = 101 mg/dL 74-106 N GLU) BLOOD UREA NITROGEN 16 mg/dL 7-17 N (test code = BUN) GLOMERULAR 126 >60 The estimated FILTRATION RATE glomerular f iltration (test code = GFR) rate is co mputed usingpatient ra ce, age (>18), sex, and serum creatinine. If anyof the needed data elements are mi ssing the Laboratory cannot compute an giovanni mation of the glomerul ar filtration rate . CREATININE (test < 0.5 mg/dL 0.5-1.0 L code = CREAT) CALCIUM (test code = 8.2 mg/dL 8.4-10.2 L CA) [id number] 03:02:00 Test Item Value Reference Range Interpretation Comments PHOSPHOROUS (test code = PHOS) 3.3 mg/dL 2.5-4.5 N [id number] 03:02:00 Test Item Value Reference Range Interpretation Comments TRIGLYCERIDES (test 205 mg/dL TRIGLYCE RIDES code = TRIG) REFERENCE RANGE:Normal: < 150 mg/dLBorderline High: 150-199 mg/dLHi gh: 200-499 mg/dLVe ry High: >=500 mg/ dL CARDIAC ENZYMES [id number] 03:02:00 Test Item Value Reference Range Interpretation Comments TROPONIN-I < 0.012 ng/mL 0.012-0.033 L (test code = TROPI) Pleas e be advised of the updated reference range s for the new Chemistry instrumentation . * * VITROS TROPONIN I CRITERIANORM AL PATIENT W/O CIRCULATING TNI: 0.012-0.033 ng/mLCIRCULATIN G TNI PRESENT: 0.034- 0.119 ng/mL(MAY BE AT RISK OF AMI)AMI DIAGNOS TIC CUTOFF: >/= 0.1 20 ng/mL~~~~~~~~~~ ~~~~~~~~~~ ~~~~~~~~~~~~~~~ ~~~~~~~~~~ ~~~~~~~~~~~~~~T he use of serial sampling and testing protoco l is arecommended pr actice.An elevated tropon in level alone is often not sufficient valdez iagnosis of myocardial i nfarction. Troponin result s obtained by different as says may vary.Evaluation of the extent of myoca rdial damage based on increase of troponin wou ld be valid only if similarmethodol ogy is used.~~~~~~~~~~ ~~~~~~~~~~ ~~~~~~~~~~~~~~~ ~~~~~~~~~~ ~~~~~~~~~~~~~~ [id number] 03:02:00 Test Item Value Reference Range Interpretation Comments PREALBUMIN (test code = PREALB) 14.47 mg/dL 17.6-36.0 L BASIC METABOLIC [id number] 02:46:00 Test Item Value Reference Range Interpretation Comments SODIUM (test code = 137 mmol/L 137-145 N NA) POTASSIUM (test code 3.4 mmol/L 3.4-5.0 N = K) CHLORIDE (test code 104 mmol/L 98-107 N = CL) CARBON DIOXIDE (test 30 mmol/L 22-30 N code = CO2) GLUCOSE (test code = 101 mg/dL 74-106 N GLU) BLOOD UREA NITROGEN 16 mg/dL 7-17 N (test code = BUN) GLOMERULAR 126 >60 The estimated FILTRATION RATE glomerular f iltration (test code = GFR) rate is co mputed usingpatient ra ce, age (>18), sex, and serum creatinine. If anyof the needed data elements are mi ssing the Laboratory cannot compute an giovanni mation of the glomerul ar filtration rate . CREATININE (test < 0.5 mg/dL 0.5-1.0 L code = CREAT) CALCIUM (test code = 8.2 mg/dL 8.4-10.2 L CA) [id number] 02:46:00 Test Item Value Reference Range Interpretation Comments PHOSPHOROUS (test code = PHOS) 3.3 mg/dL 2.5-4.5 N [id number] 02:46:00 Test Item Value Reference Range Interpretation Comments TRIGLYCERIDES (test 205 mg/dL TRIGLYCE RIDES code = TRIG) REFERENCE RANGE:Normal: < 150 mg/dLBorderline High: 150-199 mg/dLHi gh: 200-499 mg/dLVe ry High: >=500 mg/ dL CARDIAC ENZYMES [id number] 02:46:00 Test Item Value Reference Range Interpretation Comments TROPONIN-I (test code = TROPI) ng/mL 0.012-0.033 [id number] 02:46:00 Test Item Value Reference Range Interpretation Comments PREALBUMIN (test code = PREALB) mg/dL 17.6-36.0 PROTHROMBIN [id number] 02:43:00 Test Item Value Reference Range Interpretation Comments PROTHROMBIN TIME 12.2 SECONDS 9.2-12.1 H PATIENT (test code = PTP) INTERNATIONAL NORMAL 1.1 The INR is to be used RATIO (test code = only for monitoring INR) ORAL ANTICOAGULANTTH ERAPY. Indicati on INR Value1. Prophylaxis/danette atment of: Venous Thrombosis, Pul monary Embolism 2.0 - 3.02. Preventi on of systemic emboli sm from: Tiss ue heart valves 2.0 - 3.0 Acute myocardial infa rction (to present systemic emboli sm)* 2.0 - 3.0 Valvular heart disease 2.0 - 3.0 Atrial fibrillation 2.0 - 3.03. Poultry Breeder al prosthetic valv es (high risk) 2.5 - 3.5 * If oral anticoagulant t herapy is elected to preventrecurren t myocardial infa rction, an INR of 2.5-3 .5 isrecommended, consistent with Food and Drug Administrationr ecommen dations. IS PATIENT ON ANTICOAGULANTS ? NOCBC W/AUTO [id number] 02:34:00 Test Item Value Reference Range Interpretation Comments WHITE BLOOD CELL (test code = 12.4 x10 3/uL 5.0-12.0 H WBC) RED BLOOD CELL (test code = 3.43 x10 6/uL 4.20-5.40 L RBC) HEMOGLOBIN (test code = HGB) 10.7 g/dL 12.0-16.0 L HEMATOCRIT (test code = HCT) 31.5 % 36.0-46.0 L MEAN CELL VOLUME (test code = 92 fL 81-99 N MCV) MEAN CELL HGB (test code = MCH) 31.2 pg 27-31 H MEAN CELL HGB CONCENTRATION 34.0 g/dL 33-37 N (test code = MCHC) RED CELL DISTRIBUTION WIDTH 15.0 % 11.5-15.5 N (test code = RDW) PLATELET COUNT (test code = 320 x10 3/uL 130-400 N PLT) MEAN PLATELET VOLUME (test code 10.8 fL 9.4-16.4 N = MPV) NEUTROPHIL % (test code = NT%) 74.5 % 43-65 H IMMATURE GRANULOCYTE % (test 0.4 % 0.0-2.0 N code = IG%) LYMPHOCYTE % (test code = LY%) 15.5 % 20.5-45.5 L MONOCYTE % (test code = MO%) 7.6 % 5.5-11.7 N EOSINOPHIL % (test code = EO%) 1.9 % 0.9-2.9 N BASOPHIL % (test code = BA%) 0.1 % 0.2-1.0 L NUCLEATED RBC % (test code = 0.0 % 0-1.0 N NRBC%) NEUTROPHIL # (test code = NT#) 9.24 x10 3/uL 2.2-4.8 H IMMATURE GRANULOCYTE # (test 0.05 x10 3/uL 0-0.03 H code = IG#) LYMPHOCYTE # (test code = LY#) 1.92 x10 3/uL 1.3-2.9 N MONOCYTE # (test code = MO#) 0.94 x10 3/uL 0.3-0.8 H EOSINOPHIL # (test code = EO#) 0.23 x10 3/uL 0.0-0.2 H BASOPHIL # (test code = BA#) 0.01 x10 3/uL 0.0-0.1 N - XR CHEST 1 [id number] 02:33:00 FAX: Sheila Presley MD [phone] [place]: [address]: AD[place]: [place] : 1935 Age/S: 84/F [address] Unit#: [id number] Loc: C.[address] [place] [address] Phys: Sheila Handy MD Acct: [id number] Dis Date: Status: ADM IN PHONE #: [phone] Exam Date: 12/03/2019 021 FAX #: [phone] Reason: FOR SHORTNESS OF BREATH AND/OR CHEST PAIN EXAMS: CPT CODE: [id number] XR CHEST 1 V 57026 Dictation location: H37. CHEST, FRONTAL VIEW HISTORY: FOR SHORTNESS OF BREATH AND/OR CHEST PAIN FINDINGS: Since 11/28/19, the lungs remain emphysematous. Small bilateral pleural effusions are noted. The heart size is normal. Aorta is partially calcified. Nasogastric tube has been removed. IMPRESSION: Small bilateral pleural effusions, right greater than left. at 0233 Reported and signed by: Nicko Ceballos CC: Sheila Handy MD Technologist: RT Shantelle (R) Trnscrd Date/Time/By: 12/03/2019 (0233) : By: [email or web address] PAGE 1 Signed Report FAX: Sheila Presley MD [phone] [place]: St: ADM Name: JOON MILLER : 1935 Age/S: 84/F [address] Unit #: [id number] Loc: [id number] [place] [address] Phys: Sheila Handy MD Acct: [id number] Dis Date: Status: ADM IN PHONE #: [phone] Exam Date: 12/03/2019214 FAX #: [phone] Reason: FOR SHORTNESS OF BREATH AND/OR CHEST PAIN EXAMS: CPT CODE: [id number] XR CHEST 1 V 59690 <Continued> Orig Print D/T: S: 12/03/2019 (0236) PAGE 2 Signed [id number] 20:35:00 Test Item Value Reference Range Interpretation Comments GLUBED (test code = GLUBED) 106 MG/DL 74-106 N [id number] 16:21:00 Test Item Value Reference Range Interpretation Comments GLUBED (test code = GLUBED) 106 MG/DL 74-106 N [id number] 13:52:00 Test Item Value Reference Range Interpretation Comments GLUBED (test code = GLUBED) 114 MG/DL 74-106 H [id number] 06:06:00 Test Item Value Reference Range Interpretation Comments GLUBED (test code = GLUBED) 97 MG/DL 74-106 N BASIC METABOLIC [id number] 05:36:00 Test Item Value Reference Range Interpretation Comments SODIUM (test code = 137 mmol/L 137-145 N NA) POTASSIUM (test code 3.8 mmol/L 3.4-5.0 N = K) CHLORIDE (test code 106 mmol/L 98-107 N = CL) CARBON DIOXIDE (test 25 mmol/L 22-30 N code = CO2) GLUCOSE (test code = 108 mg/dL 74-106 H GLU) BLOOD UREA NITROGEN 16 mg/dL 7-17 N (test code = BUN) GLOMERULAR 126 >60 The estimated FILTRATION RATE glomerular f iltration (test code = GFR) rate is co mputed usingpatient ra ce, age (>18), sex, and serum creatinine. If anyof the needed data elements are mi ssing the Laboratory cannot compute an giovanni mation of the glomerul ar filtration rate . CREATININE (test < 0.5 mg/dL 0.5-1.0 L code = CREAT) CALCIUM (test code = 7.9 mg/dL 8.4-10.2 L CA) [id number] 05:36:00 Test Item Value Reference Range Interpretation Comments PHOSPHOROUS (test code = PHOS) 2.7 mg/dL 2.5-4.5 N [id number] 05:36:00 Test Item Value Reference Range Interpretation Comments MAGNESIUM (test code = MAG) 1.8 mg/dL 1.6-2.3 N BASIC METABOLIC [id number] 05:28:00 Test Item Value Reference Range Interpretation Comments SODIUM (test code = 137 mmol/L 137-145 N NA) POTASSIUM (test code 3.8 mmol/L 3.4-5.0 N = K) CHLORIDE (test code 106 mmol/L 98-107 N = CL) CARBON DIOXIDE (test 25 mmol/L 22-30 N code = CO2) GLUCOSE (test code = 108 mg/dL 74-106 H GLU) BLOOD UREA NITROGEN 16 mg/dL 7-17 N (test code = BUN) GLOMERULAR 126 >60 The estimated FILTRATION RATE glomerular f iltration (test code = GFR) rate is co mputed usingpatient ra ce, age (>18), sex, and serum creatinine. If anyof the needed data elements are mi ssing the Laboratory cannot compute an giovanni mation of the glomerul ar filtration rate . CREATININE (test < 0.5 mg/dL 0.5-1.0 L code = CREAT) CALCIUM (test code = 7.9 mg/dL 8.4-10.2 L CA) [id number] 05:28:00 Test Item Value Reference Range Interpretation Comments PHOSPHOROUS (test code = PHOS) mg/dL 2.5-4.5 [id number] 05:28:00 Test Item Value Reference Range Interpretation Comments MAGNESIUM (test code = MAG) mg/dL 1.6-2.3 PROTHROMBIN [id number] 05:21:00 Test Item Value Reference Range Interpretation Comments PROTHROMBIN TIME 17.3 SECONDS 9.2-12.1 H PATIENT (test code = PTP) INTERNATIONAL NORMAL 1.6 The INR is to be used RATIO (test code = only for monitoring INR) ORAL ANTICOAGULANTTH ERAPY. Indicati on INR Value1. Prophylaxis/danette atment of: Venous Thrombosis, Pul monary Embolism 2.0 - 3.02. Preventi on of systemic emboli sm from: Tiss ue heart valves 2.0 - 3.0 Acute myocardial infa rction (to present systemic emboli sm)* 2.0 - 3.0 Valvular heart disease 2.0 - 3.0 Atrial fibrillation 2.0 - 3.03. Poultry Breeder al prosthetic valv es (high risk) 2.5 - 3.5 * If oral anticoagulant t herapy is elected to preventrecurren t myocardial infa rction, an INR of 2.5-3 .5 isrecommended, consistent with Food and Drug Administrationr ecommen dations. IS PATIENT ON ANTICOAGULANTS ? YESLIST ANTICOAGULANT/ANTI PLT MEDICATION: Enoxaprin (Lovenox)THROMBOPLASTIN TIME [id number] 05:21:00 Test Item Value Reference Range Interpretation Comments THROMBOPLASTIN TIME 29.4 SECONDS 23.4-37.0 N Therap eutic Range PARTIAL (test code = for Hep mildred PTT) EFFECTIVE Heparin IU/mL aPT T Seconds0.3 64.30.7 88.8 IS PATIENT ON ANTICOAGULANTS ? YESLIST ANTICOAGULANT/ANTI PLT MEDICATION: Enoxaprin (Lovenox)CBC W/AUTO [id number] 05:16:00 Test Item Value Reference Range Interpretation Comments WHITE BLOOD CELL (test code = 9.9 x10 3/uL 5.0-12.0 N WBC) RED BLOOD CELL (test code = 3.34 x10 6/uL 4.20-5.40 L RBC) HEMOGLOBIN (test code = HGB) 10.2 g/dL 12.0-16.0 L HEMATOCRIT (test code = HCT) 30.8 % 36.0-46.0 L MEAN CELL VOLUME (test code = 92 fL 81-99 N MCV) MEAN CELL HGB (test code = MCH) 30.5 pg 27-31 N MEAN CELL HGB CONCENTRATION 33.1 g/dL 33-37 N (test code = MCHC) RED CELL DISTRIBUTION WIDTH 15.1 % 11.5-15.5 N (test code = RDW) PLATELET COUNT (test code = 272 x10 3/uL 130-400 N PLT) MEAN PLATELET VOLUME (test code 11.1 fL 9.4-16.4 N = MPV) NEUTROPHIL % (test code = NT%) 75.4 % 43-65 H IMMATURE GRANULOCYTE % (test 0.4 % 0.0-2.0 N code = IG%) LYMPHOCYTE % (test code = LY%) 13.2 % 20.5-45.5 L MONOCYTE % (test code = MO%) 8.8 % 5.5-11.7 N EOSINOPHIL % (test code = EO%) 2.2 % 0.9-2.9 N BASOPHIL % (test code = BA%) 0.0 % 0.2-1.0 L NUCLEATED RBC % (test code = 0.0 % 0-1.0 N NRBC%) NEUTROPHIL # (test code = NT#) 7.45 x10 3/uL 2.2-4.8 H IMMATURE GRANULOCYTE # (test 0.04 x10 3/uL 0-0.03 H code = IG#) LYMPHOCYTE # (test code = LY#) 1.31 x10 3/uL 1.3-2.9 N MONOCYTE # (test code = MO#) 0.87 x10 3/uL 0.3-0.8 H EOSINOPHIL # (test code = EO#) 0.22 x10 3/uL 0.0-0.2 H BASOPHIL # (test code = BA#) 0.00 x10 3/uL 0.0-0.1 N [id number] 20:27:00 Test Item Value Reference Range Interpretation Comments GLUBED (test code = GLUBED) 98 MG/DL 74-106 N [id number] 16:22:00 Test Item Value Reference Range Interpretation Comments GLUBED (test code = GLUBED) 113 MG/DL 74-106 H [id number] 12:36:00 Test Item Value Reference Range Interpretation Comments GLUBED (test code = GLUBED) 102 MG/DL 74-106 N [id number] 08:24:00 Test Item Value Reference Range Interpretation Comments PHOSPHOROUS (test code = PHOS) 3.0 mg/dL 2.5-4.5 N [id number] 08:24:00 Test Item Value Reference Range Interpretation Comments TRIGLYCERIDES (test 139 mg/dL TRIGLYCE RIDES code = TRIG) REFERENCE RANGE:Normal: < 150 mg/dLBorderline High: 150-199 mg/dLHi gh: 200-499 mg/dLVe ry High: >=500 mg/ dL [id number] 08:24:00 Test Item Value Reference Range Interpretation Comments PREALBUMIN (test code = PREALB) 12.44 mg/dL 17.6-36.0 L [id number] 08:07:00 Test Item Value Reference Range Interpretation Comments PHOSPHOROUS (test code = PHOS) 3.0 mg/dL 2.5-4.5 N [id number] 08:07:00 Test Item Value Reference Range Interpretation Comments TRIGLYCERIDES (test 139 mg/dL TRIGLYCE RIDES code = TRIG) REFERENCE RANGE:Normal: < 150 mg/dLBorderline High: 150-199 mg/dLHi gh: 200-499 mg/dLVe ry High: >=500 mg/ dL [id number] 08:07:00 Test Item Value Reference Range Interpretation Comments PREALBUMIN (test code = PREALB) mg/dL 17.6-36.0 BASIC METABOLIC [id number] 08:04:00 Test Item Value Reference Range Interpretation Comments SODIUM (test code TEST NOT PERFORMED 137-145 N Prev iously reported = NA) mmol/L result: 137 mmol/LEdited by : KOLTON on 12/01/19:0804~~ Corrected Repor t ~~Reason (required):DUPL ICAT E CALCIUM (test TEST NOT PERFORMED 8.4-10.2 Previous ly reported code = CA) mg/dL result: 7.7 mg/dLEdited by: KOLTON on 12/01/19:0802~~ Corrected Repor t ~~Reason (required):DUPL ICAT E BASIC METABOLIC [id number] 07:47:00 Test Item Value Reference Range Interpretation Comments SODIUM (test code = 137 mmol/L 137-145 N NA) POTASSIUM (test code 2.7 mmol/L 3.4-5.0 L Critica l Value = K) reported toFirs t Name: Last Name: [id number] READ BACK AND QI Amado C.LAB.MP, on , @ 0763. CHLORIDE (test code 107 mmol/L 98-107 N = CL) CARBON DIOXIDE (test 27 mmol/L 22-30 N code = CO2) GLUCOSE (test code = 102 mg/dL 74-106 N GLU) BLOOD UREA NITROGEN 19 mg/dL 7-17 H (test code = BUN) GLOMERULAR 126 >60 The estimated FILTRATION RATE glomerular f iltration (test code = GFR) rate is co mputed usingpatient ra ce, age (>18), sex, and serum creatinine. If anyof the needed data elements are mi ssing the Laboratory cannot compute an giovanni mation of the glomerul ar filtration rate . CREATININE (test < 0.5 mg/dL 0.5-1.0 L code = CREAT) CALCIUM (test code = 7.7 mg/dL 8.4-10.2 L CA) [id number] 07:47:00 Test Item Value Reference Range Interpretation Comments PHOSPHOROUS (test code = PHOS) mg/dL 2.5-4.5 [id number] 07:47:00 Test Item Value Reference Range Interpretation Comments TRIGLYCERIDES (test code = TRIG) mg/dL [id number] 07:47:00 Test Item Value Reference Range Interpretation Comments MAGNESIUM (test code = MAG) mg/dL 1.6-2.3 [id number] 07:47:00 Test Item Value Reference Range Interpretation Comments PREALBUMIN (test code = PREALB) mg/dL 17.6-36.0 BASIC METABOLIC [id number] 07:26:00 Test Item Value Reference Range Interpretation Comments SODIUM (test code = 137 mmol/L 137-145 N NA) POTASSIUM (test code 2.7 mmol/L 3.4-5.0 L Critica l Value = K) [facility]:[id number] [place] Name:RESULTS RE AD BACK AND VERIFIEDby CDrakeLABDrakeRD, on , @ 1916. CHLORIDE (test code 107 mmol/L 98-107 N = CL) CARBON DIOXIDE (test 27 mmol/L 22-30 N code = CO2) GLUCOSE (test code = 102 mg/dL 74-106 N GLU) BLOOD UREA NITROGEN 19 mg/dL 7-17 H (test code = BUN) GLOMERULAR 126 >60 The estimated FILTRATION RATE glomerular f iltration (test code = GFR) rate is co mputed usingpatient ra ce, age (>18), sex, and serum creatinine. If anyof the needed data elements are mi ssing the Laboratory cannot compute an giovanni mation of the glomerul ar filtration rate . CREATININE (test < 0.5 mg/dL 0.5-1.0 L code = CREAT) CALCIUM (test code = 7.7 mg/dL 8.4-10.2 L CA) [id number] 07:26:00 Test Item Value Reference Range Interpretation Comments MAGNESIUM (test code = MAG) 1.7 mg/dL 1.6-2.3 N PROTHROMBIN [id number] 06:47:00 Test Item Value Reference Range Interpretation Comments PROTHROMBIN TIME 18.8 SECONDS 9.2-12.1 H PATIENT (test code = PTP) INTERNATIONAL NORMAL 1.7 The INR is to be used RATIO (test code = only for monitoring INR) ORAL ANTICOAGULANTTH ERAPY. Indicati on INR Value1. Prophylaxis/danette atment of: Venous Thrombosis, Pul monary Embolism 2.0 - 3.02. Preventi on of systemic emboli sm from: Tiss ue heart valves 2.0 - 3.0 Acute myocardial infa rction (to present systemic emboli sm)* 2.0 - 3.0 Valvular heart disease 2.0 - 3.0 Atrial fibrillation 2.0 - 3.03. Poultry Breeder al prosthetic valv es (high risk) 2.5 - 3.5 * If oral anticoagulant t herapy is elected to preventrecurren t myocardial infa rction, an INR of 2.5-3 .5 isrecommended, consistent with Food and Drug Administrationr ecommen dations. IS PATIENT ON ANTICOAGULANTS ? NOCBC W/AUTO [id number] 06:37:00 Test Item Value Reference Range Interpretation Comments WHITE BLOOD CELL (test code = 8.3 x10 3/uL 5.0-12.0 N WBC) RED BLOOD CELL (test code = 3.46 x10 6/uL 4.20-5.40 L RBC) HEMOGLOBIN (test code = HGB) 10.8 g/dL 12.0-16.0 L HEMATOCRIT (test code = HCT) 32.3 % 36.0-46.0 L MEAN CELL VOLUME (test code = 93 fL 81-99 N MCV) MEAN CELL HGB (test code = MCH) 31.2 pg 27-31 H MEAN CELL HGB CONCENTRATION 33.4 g/dL 33-37 N (test code = MCHC) RED CELL DISTRIBUTION WIDTH 15.3 % 11.5-15.5 N (test code = RDW) PLATELET COUNT (test code = 275 x10 3/uL 130-400 N PLT) MEAN PLATELET VOLUME (test code 11.0 fL 9.4-16.4 N = MPV) NEUTROPHIL % (test code = NT%) 69.5 % 43-65 H IMMATURE GRANULOCYTE % (test 0.4 % 0.0-2.0 N code = IG%) LYMPHOCYTE % (test code = LY%) 17.6 % 20.5-45.5 L MONOCYTE % (test code = MO%) 9.1 % 5.5-11.7 N EOSINOPHIL % (test code = EO%) 3.3 % 0.9-2.9 H BASOPHIL % (test code = BA%) 0.1 % 0.2-1.0 L NUCLEATED RBC % (test code = 0.0 % 0-1.0 N NRBC%) NEUTROPHIL # (test code = NT#) 5.75 x10 3/uL 2.2-4.8 H IMMATURE GRANULOCYTE # (test 0.03 x10 3/uL 0-0.03 N code = IG#) LYMPHOCYTE # (test code = LY#) 1.45 x10 3/uL 1.3-2.9 N MONOCYTE # (test code = MO#) 0.75 x10 3/uL 0.3-0.8 N EOSINOPHIL # (test code = EO#) 0.27 x10 3/uL 0.0-0.2 H BASOPHIL # (test code = BA#) 0.01 x10 3/uL 0.0-0.1 N [id number] 06:13:00 Test Item Value Reference Range Interpretation Comments GLUBED (test code = GLUBED) 105 MG/DL 74-106 N [id number] 21:44:00 Test Item Value Reference Range Interpretation Comments GLUBED (test code = GLUBED) 112 MG/DL 74-106 H [id number] 16:42:00 Test Item Value Reference Range Interpretation Comments GLUBED (test code = GLUBED) 115 MG/DL 74-106 H - CT CHEST W/O [id number] 15:14:00 FAX: Sheila Presley MD [phone] [place]: St: [facility] FAX: Karoline Clark Name: [facility] : 1935 Age/S: 84/F [address] Unit: [id number] Loc: [id number] [place] [address] Phys: Karoline Balderrama SOFTWARE COMPUTER SPECIALIST Acct: [id number] Dis Date: Status: ADM IN PHONE #: [phone] Exam Date: 11/30/2019 1450 FAX #: [phone] Reason: hypoxia, EXAMS: CPT CODE: [id number] CT CHEST W/O CONTRAST 99092 EXAM: - CT CHEST W/O CONTRAST Location code:C3 HISTORY: 84 years old Female with hypoxia, TECHNIQUE: Volumetric data acquisition through the chest without IV contrast reconstructed as coronal and sagittal reconstructions. COMPARISON: CT chest performed on 10/30/2017, abdominal x-ray performed on 11/29/2019 FINDINGS: Lines andtubes: None. Lungs and pleura: Extensive emphysematous changes are seen within the lungs. There are small bilateral pleural effusions with associated compressiveatelectasis and complete collapse of the right lower lobe. There is a 1.7 cm calcifiedgranuloma seen within the left lower lobe. Mediastinum and neck: No adenopathy by CT size criteria. The thyroid gland is normal. Cardiac: No cardiomegaly or pericardial effusion. Thoracic Aorta: Atherosclerotic calcifications are seen within the aorta and branch vessels. Abdomen: There is a trace amount of air seen within the upper abdomen Musculoskeletal: No soft tissue masses. No aggressive appearing skeletal lesions. IMPRESSION: Bilateral pleural effusions, greater on the right than the left, with associated compressive atelectasis and complete collapse of the right lower lobe. Background emphysematous changes. Trace pneumoperitoneum, likelypostsurgical in nature given the PAGE 1 Signed Report (CONTINUED) FAX: Sheila Presley MD [phone] [place]: St: ADM FAX: Karoline Clark Name: JOON MILLER : 1935 Age/S: 84/F [address] Unit: [id number] Loc: C.[address] [place] [address] Phys: Karoline Balderrama NP Acct: [id number] Dis Date: Status: ADM IN PHONE #: [phone] Exam Date: 11/30/2019 1450 FAX #: [phone] Reason: hypoxia, EXAMS: CPT CODE: [id number] CT CHEST W/O CONTRAST 52506 <Continued> history of recent laparoscopy. Enteric tube. at 1514 Reported and signed by: Trip Kirby M.D. CC: Sheila Handy MD; Karoline Balderrama NP Technologist: RISHI ORTIZ Trnreginord Dt/Tm: 11/30/2019 (1514) [email or web address] Orig Print D/T: S: 11/30/2019 (6637 PAGE 2 Signed [id number] 12:39:00 Test Item Value Reference Range Interpretation Comments GLUBED (test code = GLUBED) 123 MG/DL 74-106 H [id number] 06:29:00 Test Item Value Reference Range Interpretation Comments GLUBED (test code = GLUBED) 97 MG/DL 74-106 N [id number] 21:18:00 Test Item Value Reference Range Interpretation Comments GLUBED (test code = GLUBED) 96 MG/DL 74-106 N - XR ABDOMEN 1 [id number] 16:35:00 FAX: Sheila Presley MD [phone] [place]: St: ADM FAX: Merissa Morales MD [phone] FAX: Aravind Gamble MD [phone] Name: JOON MILLER : 1935 Age/S: 84/F [address] Unit #: [id number] [facility] [place] [address] Phys: Aravind Vergara MD Acct: [id number] Dis Date: Status: ADM IN PHONE #: [phone] Exam Date: 11/29/2019 9524 FAX #: [phone] Reason: R/O ILEUS EXAMS: CPT CODE: [id number] XR ABDOMEN 1 V 89946 Examination: 1V abdomen Location code: H60 Comparison: 11/01/2017 Discussion: Clinical history is remarkable for ileus. Patient is status post midline laparotomy. There is a nonspecific gas pattern inthe abdomen. There is no evidence for obstruction. Nasogastric tube is identified withits tip in the expected location of the 2nd portion the duodenum. Residual contrast is identified within bowel loops in the midabdomen as well as in the cecum. Impression: 1. Nonspecific abdomen without evidence for obstruction. 2. Nasogastric tube identified with its tip likely in the 2nd portion the duodenum. at 1633 Reported and signed by: Liu Castro MD CC: hSeila Handy MD; Merissa Hauser MD; Aravind Vergara MD Technologist: David Mcwilliams Trnnerd Date/Time/By: 11/29/2019 (4943) : By: [email or web address] 1 Signed Report FAX: Aubree Presley [phone] [place]: St: ADM FAX: Merissa Morales MD [phone] FAX: Aravind Gamble MD [phone] Name: JOON MILLER : 1935 Age/S: 84/F [address] Unit #: [id number] Loc: C.[address] [place] [address] Phys: Aravind Vergara MD Acct: [id number] Dis Date: Status: ADM IN PHONE #: [phone] Exam Date: 11/29/2019 7498 FAX #: [phone] Reason: R/O ILEUS EXAMS: CPT CODE: [id number] XR ABDOMEN 1 V 14294 <Continued> Orig Print D/T: S: 11/29/2019 (2010) PAGE 2 Signed [id number] 06:02:00 Test Item Value Reference Range Interpretation Comments GLUBED (test code = GLUBED) 110 MG/DL 74-106 H BASIC METABOLIC [id number] 05:32:00 Test Item Value Reference Range Interpretation Comments SODIUM (test code = 144 mmol/L 137-145 N NA) POTASSIUM (test code 3.2 mmol/L 3.4-5.0 L = K) CHLORIDE (test code = 112 mmol/L 98-107 H CL) CARBON DIOXIDE (test 29 mmol/L 22-30 N code = CO2) GLUCOSE (test code = 127 mg/dL 74-106 H GLU) BLOOD UREA NITROGEN 32 mg/dL 7-17 H (test code = BUN) GLOMERULAR FILTRATION 102 >60 The es timated RATE (test code = glomerular filtration GFR) rate is compute d usingpatient ra ce, age (>18), sex, and serum creatinine. If anyof the needed data elements are mi ssing the Laboratory cannot compute an giovanni mation of the glomerul ar filtration rate . CREATININE (test code 0.6 mg/dL 0.5-1.0 N = CREAT) CALCIUM (test code = 8.2 mg/dL 8.4-10.2 L CA) CBC W/AUTO [id number] 05:17:00 Test Item Value Reference Range Interpretation Comments WHITE BLOOD CELL (test code = 12.3 x10 3/uL 5.0-12.0 H WBC) RED BLOOD CELL (test code = 3.32 x10 6/uL 4.20-5.40 L RBC) HEMOGLOBIN (test code = HGB) 10.1 g/dL 12.0-16.0 L HEMATOCRIT (test code = HCT) 31.6 % 36.0-46.0 L MEAN CELL VOLUME (test code = 95 fL 81-99 N MCV) MEAN CELL HGB (test code = 30.4 pg 27-31 N MCH) MEAN CELL HGB CONCENTRATION 32.0 g/dL 33-37 L (test code = MCHC) RED CELL DISTRIBUTION WIDTH 15.9 % 11.5-15.5 H (test code = RDW) PLATELET COUNT (test code = 258 x10 3/uL 130-400 N PLT) MEAN PLATELET VOLUME (test 11.5 fL 9.4-16.4 N code = MPV) NEUTROPHIL % (test code = NT%) 84.0 % 43-65 H IMMATURE GRANULOCYTE % (test 0.7 % 0.0-2.0 N code = IG%) LYMPHOCYTE % (test code = LY%) 7.4 % 20.5-45.5 L MONOCYTE % (test code = MO%) 7.7 % 5.5-11.7 N EOSINOPHIL % (test code = EO%) 0.1 % 0.9-2.9 L BASOPHIL % (test code = BA%) 0.1 % 0.2-1.0 L NUCLEATED RBC % (test code = 0.0 % 0-1.0 N NRBC%) NEUTROPHIL # (test code = NT#) 10.32 x10 3/uL 2.2-4.8 H IMMATURE GRANULOCYTE # (test 0.08 x10 3/uL 0-0.03 H code = IG#) LYMPHOCYTE # (test code = LY#) 0.91 x10 3/uL 1.3-2.9 L MONOCYTE # (test code = MO#) 0.94 x10 3/uL 0.3-0.8 H EOSINOPHIL # (test code = EO#) 0.01 x10 3/uL 0.0-0.2 N BASOPHIL # (test code = BA#) 0.01 x10 3/uL 0.0-0.1 N [id number] 23:14:00 Test Item Value Reference Range Interpretation Comments GLUBED (test code = GLUBED) 101 MG/DL 74-106 N [id number] 21:13:00 Test Item Value Reference Range Interpretation Comments GLUBED (test code = GLUBED) 77 MG/DL 74-106 N [id number] 16:20:00 Test Item Value Reference Range Interpretation Comments GLUBED (test code = GLUBED) 97 MG/DL 74-106 N [id number] 12:50:00 Test Item Value Reference Range Interpretation Comments GLUBED (test code = GLUBED) 66 MG/DL 74-106 L - XR CHEST 1 [id number] 11:01:00 FAX: Sheila Presley MD [phone] [place]: St: ADM FAX: Merissa Morales MD [phone] Name: ANGELAJOON [facility] : 1935 Age/S: 84/F [address] Unit #: [id number] Loc: C.[address] [place] [address] Phys: Sheila Handy MD Acct: [id number] Dis Date: Status: ADM IN PHONE #: [phone] Exam Date: 11/28/2019 1050 FAX #: [phone] Reason: FOR SHORTNESS OF BREATH EXAMS: CPT CODE: [id number] XR CHEST 1 V 56855 - XR CHEST 1 V INDICATION:Shortness of breath LOCATION: T18 Comparison 11/26/[address] Heart size normal. Lungs hyperinflated with no change in mild infiltrate/atelectasis, right lower lobe. Underlying COPD. Age-related changes, bony thorax. Residual contrast noted in the stomach and bowel loops are prior study. IMPRESSION: COPD with mild right lower lobe infiltrate/atelectasis, stable. at 1101 Reported and signed by: Geovanny Montalvo DO CC: Sheila Handy MD; Merissa Hauser MD Technologist: Yvette Montes De Oca Trnscrd Date/Time/By: 11/28/2019 (1101) : By: Eliana PAGE 1 Signed Report FAX: Sheila Presley MD [phone] [place]: St: ADM FAX: Merissa Morales MD [phone] Name: JOON MILLER [facility] : 1935 Age/S: 84/F [address] Unit #: [id number] Loc: C.[address] [place] [address] Phys: Sheial Handy MD Acct: [id number] Dis Date: Status: ADM INPHONE #: [phone] Exam Date: 11/28/2019 1050 FAX #: [phone] Reason: FOR SHORTNESS OF BREATH EXAMS: CPT CODE: [id number] XR CHEST 1 V 03111<Continued> Orig Print D/T: S: 11/28/2019 (7308) PAGE 2 Signed ReportC W/MANUAL [id number] 08:22:00 Test Item Value Reference Range Interpretation Comments WHITE BLOOD CELL (test code = 12.0 x10 3/uL 5.0-12.0 N WBC) RED BLOOD CELL (test code = 3.72 x10 6/uL 4.20-5.40 L RBC) HEMOGLOBIN (test code = HGB) 11.4 g/dL 12.0-16.0 L HEMATOCRIT (test code = HCT) 35.1 % 36.0-46.0 L MEAN CELL VOLUME (test code = 94 fL 81-99 N MCV) MEAN CELL HGB (test code = MCH) 30.6 pg 27-31 N MEAN CELL HGB CONCENTRATION 32.5 g/dL 33-37 L (test code = MCHC) RED CELL DISTRIBUTION WIDTH 15.9 % 11.5-15.5 H (test code = RDW) PLATELET COUNT (test code = 292 x10 3/uL 130-400 N PLT) MEAN PLATELET VOLUME (test code 11.3 fL 9.4-16.4 N = MPV) TOTAL CELLS COUNTED (test code 100 #CELLS = TCC) SEGMENTED NEUTROPHILS (test 86 % 43-65 H code = SEG) LYMPHOCYTE (test code = LYMPH) 6 % 20.5-45.5 L MONOCYTE (test code = MON) 8 % 5.5-11.7 N ANISOCYTOSIS (test code = 1+ NONE SEEN A ANISO) PLATELET ESTIMATE (test code = ADEQUATE ADEQUATE PLTEST) PLATELET MORPHOLOGY (test code NORMAL NORMAL = PLTMORPH) BASIC METABOLIC [id number] 08:11:00 Test Item Value Reference Range Interpretation Comments SODIUM (test code = 143 mmol/L 137-145 N NA) POTASSIUM (test code 3.5 mmol/L 3.4-5.0 N = K) CHLORIDE (test code = 112 mmol/L 98-107 H CL) CARBON DIOXIDE (test 25 mmol/L 22-30 N code = CO2) GLUCOSE (test code = 149 mg/dL 74-106 H GLU) BLOOD UREA NITROGEN 31 mg/dL 7-17 H (test code = BUN) GLOMERULAR FILTRATION 126 >60 The es timated RATE (test code = glomerular filtration GFR) rate is compute d usingpatient ra ce, age (>18), sex, and serum creatinine. If anyof the needed data elements are mi ssing the Laboratory cannot compute an giovanni mation of the glomerul ar filtration rate . CREATININE (test code 0.5 mg/dL 0.5-1.0 N = CREAT) CALCIUM (test code = 8.4 mg/dL 8.4-10.2 N CA) [id number] 08:11:00 Test Item Value Reference Range Interpretation Comments MAGNESIUM (test code = MAG) 2.1 mg/dL 1.6-2.3 N BASIC METABOLIC [id number] 08:03:00 Test Item Value Reference Range Interpretation Comments SODIUM (test code = 143 mmol/L 137-145 N NA) POTASSIUM (test code 3.5 mmol/L 3.4-5.0 N = K) CHLORIDE (test code = 112 mmol/L 98-107 H CL) CARBON DIOXIDE (test 25 mmol/L 22-30 N code = CO2) GLUCOSE (test code = 149 mg/dL 74-106 H GLU) BLOOD UREA NITROGEN 31 mg/dL 7-17 H (test code = BUN) GLOMERULAR FILTRATION 126 >60 The es timated RATE (test code = glomerular filtration GFR) rate is compute d usingpatient ra ce, age (>18), sex, and serum creatinine. If anyof the needed data elements are mi ssing the Laboratory cannot compute an giovanni mation of the glomerul ar filtration rate . CREATININE (test code 0.5 mg/dL 0.5-1.0 N = CREAT) CALCIUM (test code = 8.4 mg/dL 8.4-10.2 N CA) [id number] 08:03:00 Test Item Value Reference Range Interpretation Comments MAGNESIUM (test code = MAG) mg/dL 1.6-2.3 CBC W/MANUAL [id number] 08:02:00 Test Item Value Reference Range Interpretation Comments WHITE BLOOD CELL (test code = 12.0 x10 3/uL 5.0-12.0 N WBC) RED BLOOD CELL (test code = 3.72 x10 6/uL 4.20-5.40 L RBC) HEMOGLOBIN (test code = HGB) 11.4 g/dL 12.0-16.0 L HEMATOCRIT (test code = HCT) 35.1 % 36.0-46.0 L MEAN CELL VOLUME (test code = 94 fL 81-99 N MCV) MEAN CELL HGB (test code = MCH) 30.6 pg 27-31 N MEAN CELL HGB CONCENTRATION 32.5 g/dL 33-37 L (test code = MCHC) RED CELL DISTRIBUTION WIDTH 15.9 % 11.5-15.5 H (test code = RDW) PLATELET COUNT (test code = 292 x10 3/uL 130-400 N PLT) MEAN PLATELET VOLUME (test code 11.3 fL 9.4-16.4 N = MPV) TOTAL CELLS COUNTED (test code #CELLS = TCC) SEGMENTED NEUTROPHILS (test % 43-65 code = SEG) LYMPHOCYTE (test code = LYMPH) % 20.5-45.5 CBC W/MANUAL [id number] 08:02:00 Test Item Value Reference Range Interpretation Comments WHITE BLOOD CELL (test code = 12.0 x10 3/uL 5.0-12.0 N WBC) RED BLOOD CELL (test code = 3.72 x10 6/uL 4.20-5.40 L RBC) HEMOGLOBIN (test code = HGB) 11.4 g/dL 12.0-16.0 L HEMATOCRIT (test code = HCT) 35.1 % 36.0-46.0 L MEAN CELL VOLUME (test code = 94 fL 81-99 N MCV) MEAN CELL HGB (test code = MCH) 30.6 pg 27-31 N MEAN CELL HGB CONCENTRATION 32.5 g/dL 33-37 L (test code = MCHC) RED CELL DISTRIBUTION WIDTH 15.9 % 11.5-15.5 H (test code = RDW) PLATELET COUNT (test code = 292 x10 3/uL 130-400 N PLT) MEAN PLATELET VOLUME (test code 11.3 fL 9.4-16.4 N = MPV) TOTAL CELLS COUNTED (test code #CELLS = TCC) SEGMENTED NEUTROPHILS (test % 43-65 code = SEG) LYMPHOCYTE (test code = LYMPH) % 20.5-45.5 [id number] 06:08:00 Test Item Value Reference Range Interpretation Comments GLUBED (test code = GLUBED) 73 MG/DL 74-106 L [id number] 00:51:00 Test Item Value Reference Range Interpretation Comments GLUBED (test code = GLUBED) 76 MG/DL 74-106 N [id number] 00:13:00 Test Item Value Reference Range Interpretation Comments GLUBED (test code = GLUBED) 72 MG/DL 74-106 L [id number] 14:51:00 Test Item Value Reference Range Interpretation Comments GLUBED (test code = GLUBED) 118 MG/DL 74-106 H [id number] 14:51:00 Test Item Value Reference Range Interpretation Comments GLUBED (test code = GLUBED) 64 MG/DL 74-106 L [id number] 11:17:00 Test Item Value Reference Range Interpretation Comments POTASSIUM (test code = K) 3.9 mmol/L 3.4-5.0 N [id number] 09:35:00 Test Item Value Reference Range Interpretation Comments GLUBED (test code = GLUBED) 81 MG/DL 74-106 N CBC W/AUTO [id number] 03:13:00 Test Item Value Reference Range Interpretation Comments WHITE BLOOD CELL (test code = 8.7 x10 3/uL 5.0-12.0 N WBC) RED BLOOD CELL (test code = 4.44 x10 6/uL 4.20-5.40 N RBC) HEMOGLOBIN (test code = HGB) 13.9 g/dL 12.0-16.0 N HEMATOCRIT (test code = HCT) 41.5 % 36.0-46.0 N MEAN CELL VOLUME (test code = 94 fL 81-99 N MCV) MEAN CELL HGB (test code = MCH) 31.3 pg 27-31 H MEAN CELL HGB CONCENTRATION 33.5 g/dL 33-37 N (test code = MCHC) RED CELL DISTRIBUTION WIDTH 15.7 % 11.5-15.5 H (test code = RDW) PLATELET COUNT (test code = 356 x10 3/uL 130-400 N PLT) MEAN PLATELET VOLUME (test code 10.9 fL 9.4-16.4 N = MPV) NEUTROPHIL % (test code = NT%) 84.0 % 43-65 H IMMATURE GRANULOCYTE % (test 0.1 % 0.0-2.0 N code = IG%) LYMPHOCYTE % (test code = LY%) 6.8 % 20.5-45.5 L MONOCYTE % (test code = MO%) 9.0 % 5.5-11.7 N EOSINOPHIL % (test code = EO%) 0.0 % 0.9-2.9 L BASOPHIL % (test code = BA%) 0.1 % 0.2-1.0 L NUCLEATED RBC % (test code = 0.0 % 0-1.0 N NRBC%) NEUTROPHIL # (test code = NT#) 7.34 x10 3/uL 2.2-4.8 H IMMATURE GRANULOCYTE # (test 0.01 x10 3/uL 0-0.03 N code = IG#) LYMPHOCYTE # (test code = LY#) 0.59 x10 3/uL 1.3-2.9 L MONOCYTE # (test code = MO#) 0.79 x10 3/uL 0.3-0.8 N EOSINOPHIL # (test code = EO#) 0.00 x10 3/uL 0.0-0.2 N BASOPHIL # (test code = BA#) 0.01 x10 3/uL 0.0-0.1 N PLATELET ESTIMATE (test code = ADEQUATE ADEQUATE PLTEST) PLATELET MORPHOLOGY (test code NORMAL NORMAL = PLTMORPH) WBC [id number] 03:13:00 Test Item Value Reference Range Interpretation Comments TOTAL CELLS COUNTED (test code = 100 #CELLS TCC) SEGMENTED NEUTROPHILS (test code = 85 % 43-65 H SEG) BAND NEUTROPHIL (test code = BAND) 4 % 0-1 H LYMPHOCYTE (test code = LYMPH) 5 % 20.5-45.5 L ATYPICAL LYMPH (test code = 4 % 0-1 H ALYMPH) MONOCYTE (test code = MON) 2 % 5.5-11.7 L ANISOCYTOSIS (test code = ANISO) 1+ NONE SEEN A MACROCYTOSIS (test code = MACR) 1+ NONE SEEN A BASIC METABOLIC [id number] 02:58:00 Test Item Value Reference Range Interpretation Comments SODIUM (test code = 143 mmol/L 137-145 N NA) POTASSIUM (test code 3.4 mmol/L 3.4-5.0 N = K) CHLORIDE (test code = 108 mmol/L 98-107 H CL) CARBON DIOXIDE (test 29 mmol/L 22-30 N code = CO2) GLUCOSE (test code = 92 mg/dL 74-106 N GLU) BLOOD UREA NITROGEN 32 mg/dL 7-17 H (test code = BUN) GLOMERULAR FILTRATION 126 >60 The es timated RATE (test code = glomerular filtration GFR) rate is compute d usingpatient ra ce, age (>18), sex, and serum creatinine. If anyof the needed data elements are mi ssing the Laboratory cannot compute an giovanni mation of the glomerul ar filtration rate . CREATININE (test code 0.5 mg/dL 0.5-1.0 N = CREAT) CALCIUM (test code = 8.3 mg/dL 8.4-10.2 L CA) CBC W/AUTO [id number] 02:57:00 Test Item Value Reference Range Interpretation Comments WHITE BLOOD CELL (test code = 8.7 x10 3/uL 5.0-12.0 N WBC) RED BLOOD CELL (test code = 4.44 x10 6/uL 4.20-5.40 N RBC) HEMOGLOBIN (test code = HGB) 13.9 g/dL 12.0-16.0 N HEMATOCRIT (test code = HCT) 41.5 % 36.0-46.0 N MEAN CELL VOLUME (test code = 94 fL 81-99 N MCV) MEAN CELL HGB (test code = MCH) 31.3 pg 27-31 H MEAN CELL HGB CONCENTRATION 33.5 g/dL 33-37 N (test code = MCHC) RED CELL DISTRIBUTION WIDTH 15.7 % 11.5-15.5 H (test code = RDW) PLATELET COUNT (test code = 356 x10 3/uL 130-400 N PLT) MEAN PLATELET VOLUME (test code 10.9 fL 9.4-16.4 N = MPV) NEUTROPHIL % (test code = NT%) 84.0 % 43-65 H IMMATURE GRANULOCYTE % (test 0.1 % 0.0-2.0 N code = IG%) LYMPHOCYTE % (test code = LY%) 6.8 % 20.5-45.5 L MONOCYTE % (test code = MO%) 9.0 % 5.5-11.7 N EOSINOPHIL % (test code = EO%) 0.0 % 0.9-2.9 L BASOPHIL % (test code = BA%) 0.1 % 0.2-1.0 L NUCLEATED RBC % (test code = 0.0 % 0-1.0 N NRBC%) NEUTROPHIL # (test code = NT#) 7.34 x10 3/uL 2.2-4.8 H IMMATURE GRANULOCYTE # (test 0.01 x10 3/uL 0-0.03 N code = IG#) LYMPHOCYTE # (test code = LY#) 0.59 x10 3/uL 1.3-2.9 L MONOCYTE # (test code = MO#) 0.79 x10 3/uL 0.3-0.8 N EOSINOPHIL # (test code = EO#) 0.00 x10 3/uL 0.0-0.2 N BASOPHIL # (test code = BA#) 0.01 x10 3/uL 0.0-0.1 N WBC [id number] 02:57:00 Test Item Value Reference Range Interpretation Comments TOTAL CELLS COUNTED (test code = TCC) #CELLS SEGMENTED NEUTROPHILS (test code = % 43-65 SEG) LYMPHOCYTE (test code = LYMPH) % 20.5-45.5 CBC W/AUTO [id number] 02:47:00 Test Item Value Reference Range Interpretation Comments WHITE BLOOD CELL (test code = 8.7 x10 3/uL 5.0-12.0 N WBC) RED BLOOD CELL (test code = 4.44 x10 6/uL 4.20-5.40 N RBC) HEMOGLOBIN (test code = HGB) 13.9 g/dL 12.0-16.0 N HEMATOCRIT (test code = HCT) 41.5 % 36.0-46.0 N MEAN CELL VOLUME (test code = 94 fL 81-99 N MCV) MEAN CELL HGB (test code = MCH) 31.3 pg 27-31 H MEAN CELL HGB CONCENTRATION 33.5 g/dL 33-37 N (test code = MCHC) RED CELL DISTRIBUTION WIDTH 15.7 % 11.5-15.5 H (test code = RDW) PLATELET COUNT (test code = 356 x10 3/uL 130-400 N PLT) MEAN PLATELET VOLUME (test code 10.9 fL 9.4-16.4 N = MPV) NEUTROPHIL % (test code = NT%) 84.0 % 43-65 H IMMATURE GRANULOCYTE % (test 0.1 % 0.0-2.0 N code = IG%) LYMPHOCYTE % (test code = LY%) 6.8 % 20.5-45.5 L MONOCYTE % (test code = MO%) 9.0 % 5.5-11.7 N EOSINOPHIL % (test code = EO%) 0.0 % 0.9-2.9 L BASOPHIL % (test code = BA%) 0.1 % 0.2-1.0 L NUCLEATED RBC % (test code = 0.0 % 0-1.0 N NRBC%) NEUTROPHIL # (test code = NT#) 7.34 x10 3/uL 2.2-4.8 H IMMATURE GRANULOCYTE # (test 0.01 x10 3/uL 0-0.03 N code = IG#) LYMPHOCYTE # (test code = LY#) 0.59 x10 3/uL 1.3-2.9 L MONOCYTE # (test code = MO#) 0.79 x10 3/uL 0.3-0.8 N EOSINOPHIL # (test code = EO#) 0.00 x10 3/uL 0.0-0.2 N BASOPHIL # (test code = BA#) 0.01 x10 3/uL 0.0-0.1 N [id number] 01:23:00 Test Item Value Reference Range Interpretation Comments GLUBED (test code = GLUBED) 81 MG/DL 74-106 N CARDIAC ENZYMES [id number] 21:29:00 Test Item Value Reference Range Interpretation Comments TROPONIN-I < 0.012 ng/mL 0.012-0.033 L (test code = TROPI) Plemaria del carmen e be advised of the updated reference range s for the new Chemistry instrumentation . * * VITROS TROPONIN I CRITERIANORM AL PATIENT W/O CIRCULATING TNI: 0.012-0.033 ng/mLCIRCULATIN G TNI PRESENT: 0.034- 0.119 ng/mL(MAY BE AT RISK OF AMI)AMI DIAGNOS TIC CUTOFF: >/= 0.1 20 ng/mL~~~~~~~~~~ ~~~~~~~~~~ ~~~~~~~~~~~~~~~ ~~~~~~~~~~ ~~~~~~~~~~~~~~T he use of serial sampling and testing protoco l is arecommended pr actice.An elevated tropon in level alone is often not sufficient valdez iagnosis of myocardial i nfarction. Troponin result s obtained by different as says may vary.Evaluation of the extent of myoca rdial damage based on increase of troponin wou ld be valid only if similarmethodol ogy is used.~~~~~~~~~~ ~~~~~~~~~~ ~~~~~~~~~~~~~~~ ~~~~~~~~~~ ~~~~~~~~~~~~~~ [id number] 17:02:00 Test Item Value Reference Range Interpretation Comments GLUBED (test code = GLUBED) 119 MG/DL 74-106 H - XR CHEST 1 [id number] 16:45:00 FAX: Sheila Presley MD [phone] [place]: St: ADM FAX: Merissa Morales MD [phone] Name: JOON MILLER [facility] : 1935 Age/S: 84/F [address] Unit #: [id number] Loc: C.ICU0 [place] [address] Phys: Merissa Hauser MD Acct: C [id number] Dis Date: Status: ADM IN PHONE #: [phone] Exam Date: 11/26/2019 1633 FAX #: [phone] Reason: CVC PLACEMENT EXAMS: CPT CODE: [id number] XR CHEST 1 V 44917 EXAM: Portable chest x-ray, one view INDICATION: CVC PLACEMENT LOCATION CODE:C3 COMPARISON: 11/26/19 TECHNIQUE: Single Portable AP upright view of the chest DISCUSSION: NG tube is in satisfactory positioning. There is opacification within the gastric fundus compatible with contrast injection. It appears to be contained within the gastric pouch. No evidence of contrast extravasation.There is a right internal jugular central venous catheter. The tip is at the junction of superior vena cava and right atrium. Heart and mediastinal contour are unremarkable. Severe atherosclerotic calcification of the aortic knob is noted. There are flattening of the hemidiaphragm bilaterally with bilateral hyperinflation findings suggest emphysematous changes. Mild patchy density involving the medial right lung base suggest atelectasis and or early infiltrative process. IMPRESSION: 1. NG tube in satisfactory positioning. 2. COPD. 3. Right basilar atelectasis and or infiltrate, unchanged since previous study. 4. Right IJ central line in good position. at 1645 Reported and signed by: Gucci Robert M.D. PAGE 1 Signed Report (CONTINUED) FAX: Sheila Presley MD [phone] [place]: [facility]: ADM FAX: Merissa Morales MD [phone] Name: JOON MILLER [facility] : 1935 Age/S: 84/F [address] Unit #: [id number] Loc: C.ICU0 [place] [address] Phys: Merissa Hauser MD Acct: [id number] Dis Date: Status: ADM IN PHONE #: [phone] Exam Date: 11/26/2019 1633 FAX #: [phone] Reason: CVC PLACEMENT EXAMS: CPT CODE: [id number] XR CHEST 1 V 50016 <Continued> CC: Sheila Handy MD; Merissa Hauser MD Technologist: Yvette Montes De Oca Trnnerd Date/Time/By: 11/26/2019 (2117) : By: Prisca PAGE 2 Signed Report FAX: Sheila Presley MD [phone] [place]: [facility]: ADM FAX: Merissa Morales [phone] Name: JOON MILLER [facility] : 1935 Age/S: 84/F [address] Unit #: [id number] Loc: C.ICU0 [place] [address] Phys: Merissa Hauser MD Acct: [id number] Dis Date: Status: ADM IN PHONE #: [phone] Exam Date: 11/26/2019 1633 FAX #: [phone] Reason: CVC PLACEMENT EXAMS: CPT CODE: [id number] XR CHEST 1 V 55511 <Continued> Orig Print D/T: S: 11/26/2019 (1510) PAGE 3 Signed Report- XR CHEST 1 V 2019-11-26 12:07:00 FAX: Sheila Presley MD [phone] [place]: St: ADM FAX: Aravind Gamble MD [phone] Name: JOON MILLER [facility] : 1935 Age/S: 84/F [address] Unit #: [id number] Loc: C.97[address] [place] [address] Phys: Aravind Vergara MD Acct: C [id number] Dis Date: Status: ADM IN PHONE #: [phone] Exam Date: 11/26/2019 1200 FAX #: [phone] Reason: FOR NG TUBE PLACEMENT EXAMS: CPT CODE: [id number] XR CHEST 1 V 05290 EXAM: - XR CHEST 1 V INDICATION: 84 years -old Female with FOR NG TUBE PLACEMENT TECHNIQUE: Limited frontal x-ray for tube placement purposes. FINDINGS: Nasogastric tube is in appropriate position. IMPRESSION: As above. at 1207 Reported and signed by: Kishore Stout MD CC: Sheila Handy MD; Aravind Vergara MD Technologist: KATHERINE Guzman Date/Time/By: 11/26/2019 (9256): By: [email or web address] PAGE 1 Signed Report FAX: Sheila Presley MD [phone] [place]: [facility]: ADM FAX: Aravind Gamble MD [phone] Name: JOON MILLER [facility] : 1935 Age/S: 84/F [address] Unit #: [id number] Loc: [address] [place] [address] [id number] Phys: Aravind Vergara MD Acct: [id number] Dis Date: Status: ADM IN PHONE #: [phone] Exam Date: 11/26/2019 1200 FAX #: [phone] Reason: FOR NGTUBE PLACEMENT EXAMS: CPTCODE: [id number] XR CHEST 1 V 61602 <Continued> Orig Print D/T: S: 11/26/2019 (0380) PAGE 2 Signed Report - XR CHEST 1 [id number] 11:41:00 FAX: Sheila Presley MD [phone] [place]: [facility]: ADM FAX: Aravind Gamble MD [phone] Name: JOON MILLER [facility] : 1935 Age/S: 84/F [address] Unit #: [id number] Loc: C.[address] [place] [address] Phys: Aravind Vergara MD Acct: C [id number] Dis Date: Status: ADM IN PHONE #: [phone] Exam Date: 11/26/2019 1045 FAX #: [phone] Reason: NG TUBEPLACEMENT EXAMS: CPT CODE: [id number] XR CHEST 1 V 54655 Portable chest CLINICAL INDICATION: NG tube placement COMPARISON: Less than 1 hour ago Location E5 Nasogastric tube is now coiled in the esophagus. The distal aspect extends to the distal esophagus, above the gastroesophageal junction. Findings are called to the nurse for the patient, Chari Lemon at 11:40 AM. Heart is normal in size. Aorta is densely calcified. Mild interstitial prominence is unchanged. Contrast is demonstrated in the stomach. IMPRESSION: Nasogastric tube is coiled in the proximal esophagus. Nursing staff is aware. at 1141 Reported and signed by: Amelia Devine MD CC: Sheila Handy MD; Aravind Vergara MD Technologist: KATHERINE MACEDO Trnnerd Date/Time/By: 11/26/2019 (1141) : By: [email or web address] PAGE 1 Signed Report FAX: Sheila Presley MD [phone] [place]: St: ADM FAX: Aravind Gamble MD [phone] Name: [facility] : 1935 Age/S: 84/F [address] Unit #: [id number] Loc: C.[address], [place] [address] Phys: Aravind Vergara MD Acct: [id number] Dis Date: Status: ADM IN PHONE #: [phone] Exam Date: 11/26/2019 1045 FAX #: [phone] Reason: NG TUBE PLACEMENT EXAMS: CPT CODE: [id number] XR CHEST 1 V 49054 <Continued> Orig Print D/T: S: 11/26/2019 (7259) PAGE 2 Signed ReportCBC W/AUTO [id number] 10:31:00 Test Item Value Reference Range Interpretation Comments WHITE BLOOD CELL (test code = 13.8 x10 3/uL 5.0-12.0 H WBC) RED BLOOD CELL (test code = 4.50 x10 6/uL 4.20-5.40 N RBC) HEMOGLOBIN (test code = HGB) 13.8 g/dL 12.0-16.0 N HEMATOCRIT (test code = HCT) 42.4 % 36.0-46.0 N MEAN CELL VOLUME (test code = 94 fL 81-99 N MCV) MEAN CELL HGB (test code = 30.7 pg 27-31 N MCH) MEAN CELL HGB CONCENTRATION 32.5 g/dL 33-37 L (test code = MCHC) RED CELL DISTRIBUTION WIDTH 15.9 % 11.5-15.5 H (test code = RDW) PLATELET COUNT (test code = 371 x10 3/uL 130-400 N PLT) MEAN PLATELET VOLUME (test 10.9 fL 9.4-16.4 N code = MPV) NEUTROPHIL % (test code = NT%) 84.7 % 43-65 H IMMATURE GRANULOCYTE % (test 0.6 % 0.0-2.0 N code = IG%) LYMPHOCYTE % (test code = LY%) 6.4 % 20.5-45.5 L MONOCYTE % (test code = MO%) 8.3 % 5.5-11.7 N EOSINOPHIL % (test code = EO%) 0.0 % 0.9-2.9 L BASOPHIL % (test code = BA%) 0.0 % 0.2-1.0 L NUCLEATED RBC % (test code = 0.0 % 0-1.0 N NRBC%) NEUTROPHIL # (test code = NT#) 11.67 x10 3/uL 2.2-4.8 H IMMATURE GRANULOCYTE # (test 0.08 x10 3/uL 0-0.03 H code = IG#) LYMPHOCYTE # (test code = LY#) 0.88 x10 3/uL 1.3-2.9 L MONOCYTE # (test code = MO#) 1.14 x10 3/uL 0.3-0.8 H EOSINOPHIL # (test code = EO#) 0.00 x10 3/uL 0.0-0.2 N BASOPHIL # (test code = BA#) 0.00 x10 3/uL 0.0-0.1 N - XR CHEST 1 [id number] 10:06:00 FAX: Sheila Presley MD [phone] [place]: St: ADM FAX: Aravind Gamble MD [phone] Name: JOON MILLER [facility] : 1935 Age/S: 84/F [address] Unit #: [id number] Loc: C.[address] [place] [address] Phys: Aravind Vergara MD Acct: C [id number] Dis Date: Status: ADM IN PHONE #: [phone] Exam Date: 11/26/2019 0959 FAX #: [phone] Reason: NG TUBEPLACEMENT EXAMS: CPT CODE: [id number] XR CHEST 1 V 85780 EXAM: - XR CHEST 1 V INDICATION: 84 years -old Female with NG TUBE PLACEMENT TECHNIQUE: Limited frontal x-ray for tube placement purposes. FINDINGS: Nasogastric tube side-port overlies the upper esophagus. Recommend advancement by at least 25 cm. IMPRESSION: As above. Electronically Signed by Kishore Stout MD on at 1006 Reported and signed by: Kishore Stout MD CC: Sheila Handy MD; Aravind Vergara MD Technologist: CIPRIANO CRUZ [facility] Date/Time/By: 11/26/2019 (1006) : By: [email or web address] PAGE 1 Signed Report FAX: Sheila Presley MD [phone] [place]: [facility]: ADM FAX: Aravind Gamble MD [phone] Name: ANGELAJOON [facility] : 1935 Age/S: 84/F [address] Unit #: [id number] Loc: C.[address] [place] [address] Phys: Aravind Vergara MD Acct: [id number] Dis Date: Status: ADM IN PHONE #: [phone] Exam Date: 11/26/2019 0959 FAX #: [phone] Reason: NG TUBE PLACEMENT EXAMS: CPT CODE: [id number] XR CHEST 1 V 30859 <Continued> Orig Print D/T: S: 11/26/2019 (1010) PAGE 2 Signed Report- XR SMALL [id number] 08:47:00 FAX: Sheila Presley MD [phone] [place]: [facility]: ADM FAX: Richard Marie MD R1 Name: JOON MILLER [facility] : 1935 Age/S: 84/F [address] Unit #: [id number] Loc: C.55[address] [place] [address] Phys: Richard Marie MD R1 Acct: C [id number] Dis Date: Status: ADM IN PHONE #: [phone] Exam Date: 11/25/2019825 FAX #: [phone] Reason: abd pain, r/o obstruction EXAMS: CPT CODE: [id number] XR SMALL BOWEL 26189 EXAM: - XR SMALL BOWEL HISTORY: Diffuse abdominal pain. COMPARISON: None available time of interpretation. FINDINGS: No fluoroscopic images obtained. Dilated loops of small bowel are identified. No contrast seen in the colon after 13 hours. IMPRESSION: Findings concerning for small bowel obstruction. at 0847 Reported and signed by: Kishore Stout MD CC: Sheila Handy MD; Richard Marie MD Technologist: LORENZA LUJAN [facility] Date/Time/By: 11/26/2019 (0047) : By: [email or web address] PAGE 1 Signed Report FAX: Sheila Presley MD [phone] [place]: [facility]: ADM FAX: Richard Marie MD R1 Name: JOON MILLER [facility] : 1935 Age/S: 84/F [address] Unit #: [id number] Loc: C.[address] [place] [address] Phys: Richard Marie MD R1 Acct: [id number] Dis Date: Status: ADM IN PHONE #: [phone] Exam Date: 11/25/2019825 FAX #: [phone] Reason: abd pain, r/o obstruction EXAMS: CPT CODE: [id number] XR SMALL BOWEL 03997 <Continued> Orig Print D/T: S: 11/26/2019 (0850) PAGE 2 Signed Report- XR CHEST 1 [id number] 17:18:00 FAX: Sheila Prelsey MD [phone] [place]: [facility]: ADM FAX: Richard Marie MD R1 Name: JOON MILLER [facility] : 1935 Age/S: 84/F [address] Unit #: [id number] Loc: C.ICU0 [place] [address] Phys: Richard Marie MD R1 Acct: C [id number] Dis Date: Status: ADM IN PHONE #: [phone] Exam Date: 11/25/2019 1710 FAX #: [phone] Reason: cough EXAMS: CPT CODE: [id number] XR CHEST 1 V 52525 Examination: One view chest x-ray Location code: H60 Comparison: 11/02/2017 Discussion: Clinical history is remarkable for cough. The interstitial markings are prominent consistent with changes of underlying interstitial fibrosis. No consolidating infiltrates are identified. No significant effusions are noted. Heart is normal in size. Aortic vascular calcifications are identified. Impression: 1. Interstitial pulmonary fibrosis. at 1718 Reported and signed by: Liu Castro MD CC: Sheila Handy MD; Richard Marie MD Technologist: Aurora Ortiz Trnnerd Date/Time/By: 11/25/2019 (1717) : By: [email or web address] PAGE 1 Signed Report FAX: Sheila Presley MD [phone]: [facility]: ADM FAX: Richard Marie MD R1 Name: JOON MILLER [facility] : 1935 Age/S: 84/F [address] Unit #: [id number] Loc: C.ICU0 [place] [address] Phys: Richard Marie MD R1 Acct: [id number] Dis Date: Status: ADM IN PHONE #: [phone] Exam Date: 11/25/2019 1710 FAX #: [phone] Reason: cough EXAMS: CPT CODE: [id number] XR CHEST 1 V 71579 <Continued> Orig Print D/T: S: 11/27/2019 (0828) PAGE 2 Signed ReportCBC W/MANUAL [id number] 15:49:00 Test Item Value Reference Range Interpretation Comments WHITE BLOOD CELL (test 9.3 x10 3/uL 5.0-12.0 N code = WBC) RED BLOOD CELL (test code 4.38 x10 6/uL 4.20-5.40 N = RBC) HEMOGLOBIN (test code = 13.3 g/dL 12.0-16.0 N HGB) HEMATOCRIT (test code = 40.8 % 36.0-46.0 N HCT) MEAN CELL VOLUME (test 93 fL 81-99 N code = MCV) MEAN CELL HGB (test code 30.4 pg 27-31 N = MCH) MEAN CELL HGB 32.6 g/dL 33-37 L CONCENTRATION (test code = MCHC) RED CELL DISTRIBUTION 15.8 % 11.5-15.5 H WIDTH (test code = RDW) PLATELET COUNT (test code 375 x10 3/uL 130-400 N = PLT) MEAN PLATELET VOLUME 10.7 fL 9.4-16.4 N (test code = MPV) TOTAL CELLS COUNTED (test 100 #CELLS code = TCC) SEGMENTED NEUTROPHILS 87 % 43-65 H (test code = SEG) LYMPHOCYTE (test code = 9 % 20.5-45.5 L LYMPH) ATYPICAL LYMPH (test code 2 % 0-1 H = ALYMPH) MONOCYTE (test code = 2 % 5.5-11.7 L MON) MICROCYTOSIS (test code = 1+ NONE SEEN A MICR) PLATELET ESTIMATE (test ADEQUATE ADEQUATE code = PLTEST) PLATELET MORPHOLOGY (test LARGE PLATELETS SEEN NORMAL code = PLTMORPH) COMPREHENSIVE METABOLIC [id number] 15:09:00 Test Item Value Reference Range Interpretation Comments SODIUM (test code = 139 mmol/L 137-145 N NA) POTASSIUM (test code = 4.7 mmol/L 3.4-5.0 N K) CHLORIDE (test code = 106 mmol/L 98-107 N CL) CARBON DIOXIDE (test 28 mmol/L 22-30 N code = CO2) GLUCOSE (test code = 117 mg/dL 74-106 H GLU) BLOOD UREA NITROGEN 35 mg/dL 7-17 H (test code = BUN) GLOMERULAR FILTRATION 102 >60 The es timated RATE (test code = GFR) glome rular filtration rate is compute d usingpatient ra ce, age (>18), sex, and serum creatinin e. If anyof the neede d data elements are mi ssing the Laboratory cannot compute an giovanni mation of the glomerul ar filtration rate . CREATININE (test code 0.6 mg/dL 0.5-1.0 N = CREAT) TOTAL PROTEIN (test 6.6 g/dL 6.3-8.2 N code = PROT) ALBUMIN (test code = 3.8 g/dL 3.5-5.0 N ALB) CALCIUM (test code = 9.0 mg/dL 8.4-10.2 N CA) BILIRUBIN TOTAL (test 0.7 mg/dL 0.2-1.3 N code = BILT) BILIRUBIN CONJUGATED 0 mg/dL 0-0.3 N ~~~~~~~ ~~~~~~~~~~~~~~ (test code = BILCON) ~~~~~~~ ~~~~~~~~~~~~~~ ~~~~~~~~~~~~~~~ ~~~CON JUGATED BILIRUB IN IS THE REPLACEMENT ASSAY FOR DIRECTBILIRUBIN .~~~~~ ~~~~~~~~~~~~~~~ ~~~~~~ ~~~~~~~~~~~~~~~ ~~~~~~ ~~~~~~~~~~~~~ BILIRUBIN UNCONJUGATED 0.3 mg/dL 0-1.1 N (test code = BILUNC) SGOT/AST (test code = 40 U/L 15-46 N AST) SGPT/ALT (test code = 25 U/L 13-69 N ALT) ALKALINE PHOSPHATASE 71 U/L 38-126 N (test code = ALKP) [id number] 15:09:00 Test Item Value Reference Range Interpretation Comments LIPASE (test code = LIP) 40 U/L 23-300 N CBC W/MANUAL [id number] 15:07:00 Test Item Value Reference Range Interpretation Comments WHITE BLOOD CELL (test code = 9.3 x10 3/uL 5.0-12.0 N WBC) RED BLOOD CELL (test code = 4.38 x10 6/uL 4.20-5.40 N RBC) HEMOGLOBIN (test code = HGB) 13.3 g/dL 12.0-16.0 N HEMATOCRIT (test code = HCT) 40.8 % 36.0-46.0 N MEAN CELL VOLUME (test code = 93 fL 81-99 N MCV) MEAN CELL HGB (test code = MCH) 30.4 pg 27-31 N MEAN CELL HGB CONCENTRATION 32.6 g/dL 33-37 L (test code = MCHC) RED CELL DISTRIBUTION WIDTH 15.8 % 11.5-15.5 H (test code = RDW) PLATELET COUNT (test code = 375 x10 3/uL 130-400 N PLT) MEAN PLATELET VOLUME (test code 10.7 fL 9.4-16.4 N = MPV) TOTAL CELLS COUNTED (test code #CELLS = TCC) SEGMENTED NEUTROPHILS (test % 43-65 code = SEG) LYMPHOCYTE (test code = LYMPH) % 20.5-45.5 CBC W/MANUAL [id number] 15:07:00 Test Item Value Reference Range Interpretation Comments WHITE BLOOD CELL (test code = 9.3 x10 3/uL 5.0-12.0 N WBC) RED BLOOD CELL (test code = 4.38 x10 6/uL 4.20-5.40 N RBC) HEMOGLOBIN (test code = HGB) 13.3 g/dL 12.0-16.0 N HEMATOCRIT (test code = HCT) 40.8 % 36.0-46.0 N MEAN CELL VOLUME (test code = 93 fL 81-99 N MCV) MEAN CELL HGB (test code = MCH) 30.4 pg 27-31 N MEAN CELL HGB CONCENTRATION 32.6 g/dL 33-37 L (test code = MCHC) RED CELL DISTRIBUTION WIDTH 15.8 % 11.5-15.5 H (test code = RDW) PLATELET COUNT (test code = 375 x10 3/uL 130-400 N PLT) MEAN PLATELET VOLUME (test code 10.7 fL 9.4-16.4 N = MPV) TOTAL CELLS COUNTED (test code #CELLS = TCC) SEGMENTED NEUTROPHILS (test % 43-65 code = SEG) LYMPHOCYTE (test code = LYMPH) % 20.5-45.5 COMPREHENSIVE METABOLIC [id number] 15:01:00 Test Item Value Reference Range Interpretation Comments SODIUM (test code = 139 mmol/L 137-145 N NA) POTASSIUM (test code = 4.7 mmol/L 3.4-5.0 N K) CHLORIDE (test code = 106 mmol/L 98-107 N CL) CARBON DIOXIDE (test 28 mmol/L 22-30 N code = CO2) GLUCOSE (test code = 117 mg/dL 74-106 H GLU) BLOOD UREA NITROGEN 35 mg/dL 7-17 H (test code = BUN) GLOMERULAR FILTRATION 102 >60 The es timated RATE (test code = GFR) glome rular filtration rate is compute d usingpatient ra ce, age (>18), sex, and serum creatinin e. If anyof the neede d data elements are mi ssing the Laboratory cannot compute an giovanni mation of the glomerul ar filtration rate . CREATININE (test code 0.6 mg/dL 0.5-1.0 N = CREAT) TOTAL PROTEIN (test 6.6 g/dL 6.3-8.2 N code = PROT) ALBUMIN (test code = 3.8 g/dL 3.5-5.0 N ALB) CALCIUM (test code = 9.0 mg/dL 8.4-10.2 N CA) BILIRUBIN TOTAL (test 0.7 mg/dL 0.2-1.3 N code = BILT) BILIRUBIN CONJUGATED 0 mg/dL 0-0.3 N ~~~~~~~ ~~~~~~~~~~~~~~ (test code = BILCON) ~~~~~~~ ~~~~~~~~~~~~~~ ~~~~~~~~~~~~~~~ ~~~CON JUGATED BILIRUB IN IS THE REPLACEMENT ASSAY FOR DIRECTBILIRUBIN .~~~~~ ~~~~~~~~~~~~~~~ ~~~~~~ ~~~~~~~~~~~~~~~ ~~~~~~ ~~~~~~~~~~~~~ BILIRUBIN UNCONJUGATED 0.3 mg/dL 0-1.1 N (test code = BILUNC) SGOT/AST (test code = 40 U/L 15-46 N AST) SGPT/ALT (test code = 25 U/L 13-69 N ALT) ALKALINE PHOSPHATASE 71 U/L 38-126 N (test code = ALKP) [id number] 15:01:00 Test Item Value Reference Range Interpretation Comments LIPASE (test code = LIP) U/L 23-300 LACTIC [id number] 14:59:00 Test Item Value Reference Range Interpretation Comments LACTIC ACID (test code = LACT) 1.1 mmol/L 0.7-2.0 N CBC W/AUTO [id number] 14:37:00 Test Item Value Reference Range Interpretation Comments WHITE BLOOD CELL (test code = 9.3 x10 3/uL 5.0-12.0 N WBC) RED BLOOD CELL (test code = 4.38 x10 6/uL 4.20-5.40 N RBC) HEMOGLOBIN (test code = HGB) 13.3 g/dL 12.0-16.0 N HEMATOCRIT (test code = HCT) 40.8 % 36.0-46.0 N MEAN CELL VOLUME (test code = 93 fL 81-99 N MCV) MEAN CELL HGB (test code = MCH) 30.4 pg 27-31 N MEAN CELL HGB CONCENTRATION 32.6 g/dL 33-37 L (test code = MCHC) RED CELL DISTRIBUTION WIDTH 15.8 % 11.5-15.5 H (test code = RDW) PLATELET COUNT (test code = 375 x10 3/uL 130-400 N PLT) MEAN PLATELET VOLUME (test code 10.7 fL 9.4-16.4 N = MPV) NEUTROPHIL % (test code = NT%) 88.7 % 43-65 H IMMATURE GRANULOCYTE % (test 0.1 % 0.0-2.0 N code = IG%) LYMPHOCYTE % (test code = LY%) 7.1 % 20.5-45.5 L MONOCYTE % (test code = MO%) 4.0 % 5.5-11.7 L EOSINOPHIL % (test code = EO%) 0.0 % 0.9-2.9 L BASOPHIL % (test code = BA%) 0.1 % 0.2-1.0 L NUCLEATED RBC % (test code = 0.0 % 0-1.0 N NRBC%) NEUTROPHIL # (test code = NT#) 8.20 x10 3/uL 2.2-4.8 H IMMATURE GRANULOCYTE # (test 0.01 x10 3/uL 0-0.03 N code = IG#) LYMPHOCYTE # (test code = LY#) 0.66 x10 3/uL 1.3-2.9 L MONOCYTE # (test code = MO#) 0.37 x10 3/uL 0.3-0.8 N EOSINOPHIL # (test code = EO#) 0.00 x10 3/uL 0.0-0.2 N BASOPHIL # (test code = BA#) 0.01 x10 3/uL 0.0-0.1 N LIPID PROFILE (CORONARY RISK)2019-11-25 13:03:00 Test Item Value Reference Range Interpretation Comments TRIGLYCERIDES (test 84 mg/dL TRIGLYCE RIDES code = TRIG) REFERENCE RANGE:Normal: < 150 mg/dLBorderline High: 150-199 mg/dLHigh: 200- 499 mg/dLVery High: >=500 mg/dL CHOLESTEROL (test 202 mg/dL CHOLESTERO L code = CHOL) REFERENCE RANGE:DESIRABLE : < 200 mg/dLBORDER LINE: 200-239 mg/dLHI GH: >=240 mg/dL HDL CHOLESTEROL (test 62 mg/dL 40-59 H code = HDL) LIPOPROTEIN LDL (test 109.99 mg/dL 32-99 H code = LDLC) CORONARY RISK FACTOR 3.26 (test code = RISK) CHOL/HD L RISK MALE: 1/2 AVG 3.43 FEMALE: 1/2 AVG 3.27 AVG 4.97 AVG 4.44 2X AVG 9.55 2X AVG 7 .05 3X A VG 23.39 3X AVG 11.04~~~~~~~~~~ ~~~~~ ~~~~~~~~~~~~~~~ ~~~~~ ~~~~~~~~~~~~~~~ ~~~~~ ~~~~~National Cholesterol Education (NCEP ) Guidelines:~~~~ ~~~~~ ~~~~~~~~~~~~~~~ ~~~~~ ~~~~~~~~~~~~~~~ ~~~~~ ~~~~~~~~~~~ HDL Cholesterol<4 0mg/d L: HDL Choleste rol (Major risk fac tor for CHD)>60mg/d L: HDL Cholesterol (Negative risk factor for CHD)40-59mg/dL: Borderline Risk * *LDL Cholesterol<1 00mg/ dL: Desirable L DL-C [id number] 0-159 mg/dL: Borderli ne High Risk LDL-C ykyrhmxyqigon50 0-189 mg/dL: High ris k LDL-C concentra tion HDL-LDL Cholest marquez is affected by a number of facto rs suchas smoking, age and sex.~~~~~~~~~~~ ~~~~~ ~~~~~~~~~~~~~~~ ~~~~~ ~~~~~~~~~~~~~~~ ~~~~~ ~~~~ LIPID PROFILE (CORONARY RISK)2019-11-25 12:51:00 Test Item Value Reference Range Interpretation Comments TRIGLYCERIDES (test 84 mg/dL TRIGLYCE RIDES code = TRIG) REFERENCE RANGE:Normal: < 150 mg/dLBorderline High: 150-199 mg/dLHi gh: 200-499 mg/dLVe ry High: >=500 mg/ dL CHOLESTEROL (test code 202 mg/dL VAN STEROL REFERENCE = CHOL) RANGE:DESIRABLE : < 200 mg/dLBORDERLINE : 200-239 mg/dLHI GH: >=240 mg/dL HDL CHOLESTEROL (test 62 mg/dL 40-59 H code = HDL) LIPOPROTEIN LDL (test mg/dL 32-99 code = LDLC) CORONARY RISK FACTOR 3.26 (test code = RISK) CHOL/HDL RISK MALE: 1/2 AVG 3.43 FEMALE: 1/2 AV G 3.27 AVG 4.97 AVG 4.44 2X AVG 9.55 2X AVG 7.05 3X AVG 23.39 3X AVG 11.04~~~~~~~~~~ ~~~~~~~ ~~~~~~~~~~~~~~~ ~~~~~~~ ~~~~~~~~~~~~~~~ ~~~~~~N ational Cholest marquez Education (NCEP ) Guidelines:~~~~ ~~~~~~~ ~~~~~~~~~~~~~~~ ~~~~~~~ ~~~~~~~~~~~~~~~ ~~~~~~~ ~~~~~ HDL Cholesterol<4 0mg/dL: HDL Cholesterol (Major risk factor for CHD)>60mg/dL: H DL Cholesterol (Ne gative risk factor for CHD)40-59mg/dL: Borderline Risk L DL Cholesterol<1 00mg/dL : Desirable LDL -C [id number] 0-159mg /dL: Borderline High Risk LDL-C [id number] 0-189mg /dL: High risk LDL-C concentration H DL-LDL Cholesterol is affected by a n umber of factors such as smoking, age an d sex.~~~~~~~~~~~ ~~~~~~~ ~~~~~~~~~~~~~~~ ~~~~~~~ ~~~~~~~~~~~~~~~ ~~~~~
[2021-05-17 22:41] LABS: Basophils % 0.4 % (0-1.3); Hematocrit 47.6 % (36.0-45.0); Lymphocytes % 7.4 % (15.3-44.8); MPV 9.2 fL (7.6-11.3); RBC Red Blood Cell Count 5.17 M/uL (3.86-4.86)
[2021-05-17] MEDS ORDERED: FAMOTIDINE 20 MG/2 ML VIAL IV ONE (22:42)
[2021-05-17] MEDS ORDERED: ONDANSETRON 4 MG/2 ML VIAL ONE (22:42)
[2021-05-17] MEDS ORDERED: MORPHINE 2 MG/ML SYR ONE (22:42)
[2021-05-17] MEDS ORDERED: NA CHLORIDE 0.9% 500 ML ONE (22:42)
[2021-05-17] MEDS ORDERED: PIPERACIL/TAZO 4.5 GM VIAL IV ONE (22:42)
[2021-05-17] MEDS ORDERED: NA CHLORIDE 0.9% 100 ML ONE (22:42)
[2021-05-17 22:45] LABS: Protime INR 0.91
[2021-05-17 23:52] LABS: ALT/SGPT 17 U/L (12-78); AST/SGOT 18 U/L (15-37); Albumin 3.2 g/dL (3.4-5.0); Alkaline Phosphatase 84 U/L (45-117); BUN Blood Urea Nitrogen 20 mg/dL (7-18); Bicarbonate 26 mmol/L (21-32); Bilirubin Direct 0.2 mg/dL (0-0.2); Bilirubin Total 0.6 mg/dL (0.2-1.0); Glucose Level 104 mg/dL (74-106); Lipase 25 U/L (73-393); Magnesium 1.8 mg/dL (1.8-2.4); NT PRO-BNP 273 pg/mL (<450); Potassium 3.9 mmol/L (3.5-5.1); Protein, Total 6.5 g/dL (6.4-8.2); Sodium Level 139 mmol/L (136-145); Troponin (Emerg Dept Use Only) < 0.02 ng/mL (0.0-0.045)
--- NOTE | 2021-05-18 01:12 | ER ---
Nurse's Notes [facility] Name: Sharlene Ashraf Age: 85 yrs Sex: Female : 1935 Arrival Date: 05/17/2021 Time: 19:59 Bed 2 Private MD: Diagnosis: COPD/ Chronic obstructive pulmonary disease, unspecified;Abdominal pain, Generalized;Other and unspecified intestinal obstruction-small bowel obstruction(SBO);Vomiting Presentation: 05/17 20:28 Chief complaint: Patient's son or daughter states: Pt vomited today twice today and c/o vg1 ABD pain near umbilicus. Pt has had two bowel surgeries, the last one was about two years ago. Pt states that feels like needs to have BM but is unable to go. Coronavirus screen: Client denies travel out of the [place] in the last 14 days. Ebola Screen: Patient negative for fever greater than or equal to 101.5 degrees Fahrenheit, and additional compatible Ebola Virus Disease symptoms. Initial Sepsis Screen: Does the patient meet any 2 criteria? No. Patient's initial sepsis screen is negative. Does the patient have a suspected source of infection? No. Patient's initial sepsis screen is negative. Risk Assessment: Do you want to hurt yourself or someone else? Patient reports no desire to harm self or others. Onset of symptoms was May 17, 2021. 20:28 Method Of Arrival: Ambulatory vg1 20:28 Acuity: BOB 3 vg1 Triage Assessment: 20:32 General: Appears in no apparent distress. comfortable, Behavior is calm, cooperative. vg1 Pain: Complains of pain in umbilical area and right upper quadrant. GI: Abdomen is flat, non-distended. Historical: - Allergies: 20:32 No Known Allergies; vg1 - Home Meds: 20:32 Albuterol Nebulizer [Active]; vg1 - PSHx: 20:32 Twisted Bowel; Umbilical hernia; vg1 - Immunization history:: Adult Immunizations up to date. - Social history:: Smoking status: Patient reports the use of cigarette tobacco products, smokes one-half pack cigarettes per day. Screenin:38 Abuse screen: Denies threats or abuse. Denies injuries from another. Nutritional jm8 screening: No deficits noted. Tuberculosis screening: No symptoms or risk factors identified. Fall Risk None identified. Assessment: 21:46 General: Appears in no apparent distress. Pain: Complains of pain in abdomen. Neuro: No ak2 deficits noted. Cardiovascular: No deficits noted. Respiratory: No deficits noted. GI: Reports lower abdominal pain, nausea, vomiting. 21:48 GI: Bowel sounds Abdomen is tender to palpation. ak2 05/18 04:35 Reassessment: Patient removes NG tube at this time. NG tube is replace. Xray called to [facility] do repeat chest xray for NG placement. Vital Signs: 05/17 20:28 BP 107 / 74; Pulse 102; Resp 18; Temp 98.0; Pulse Ox 95% ; Weight 29.48 kg; Height 4 vg1 ft. 10 in. (147.32 cm); Pain 5/10; 21:47 BP 110 / 71; Pulse 89; Resp 16; Pulse Ox 96% on R/A; ak2 05/18 00:00 BP 98 / 74; Pulse 86; Resp 16; Pulse Ox 96% on R/A; 8 02:12 BP 103 / 68; Pulse 87; Resp 16; Pulse Ox 99% on R/A; 8 03:55 BP 120 / 71; Pulse 78; Resp 16; Pulse Ox 96% on R/A; 8 05/17 20:28 Body Mass Index 13.58 (29.48 kg, 147.32 cm) vg1 ED Course: 05/17 19:59 Patient arrived in ED. 20:32 Triage completed. vg1 20:32 Arm band placed on Patient placed in waiting room, Patient notified of wait time. vg1 21:38 Patient has correct armband on for positive identification. Bed in low position. Call 8 light in reach. Side rails up X2. Adult w/ patient. 21:40 Bakari Red MD is Attending Physician. fredy 21:46 Filippo Ramirez is Primary Nurse. ak2 21:47 No provider procedures requiring assistance completed. ak2 22:50 XRAY Chest (1 view) In Process Unspecified. EDMS 05/18 00:13 CT Abd/Pelvis - IV Contrast Only In Process Unspecified. EDMS 01:07 Ynes Lopez MD is Hospitalizing Provider. fredy 01:48 Chest Single View XRAY In Process Unspecified. EDMS 04:36 Patient admitted, IV remains in place. 8 Administered Medications: 05/17 22:36 Not Given (Patient Refused): morphine 1 mg IVP once; RASS on ADMIN: Combtv4, Very jm8 Agttd3, Agttd2, Rstlss1, AlertClm0, Drwsy-1, Lt Sdtn-2, Mod Sdtn-3, Dp Sdtn-4, UnArsble-5 22:37 Drug: NS 0.9% (20 ml/kg) 20 ml/kg Route: IV; Rate: 1 bolus; Site: left upper arm; [facility] 05/18 02:11 Follow up: Response: No adverse reaction 02:12 Follow up: IV Status: Completed infusion [facility] 05/17 22:37 Drug: Zosyn (piperacillin-tazobactam) 3 grams Route: IVPB; Infused Over: 60 mins; Site: [facility] left upper arm; 05/18 02:12 Follow up: IV Status: Completed infusion [facility] 05/17 22:37 Drug: Pepcid (famotidine) 20 mg Route: IVP; Site: left upper arm; jm8 22:44 Follow up: Response: No adverse reaction [facility] 22:37 Drug: Zofran (Ondansetron) 4 mg Route: IVP; Site: left upper arm; [facility] 22:43 Follow up: Response: No adverse reaction 8 22:37 Not Given (Patient Refused): morphine 1 mg IVP once; RASS on ADMIN: Combtv4, Very jm8 Agttd3, Agttd2, Rstlss1, AlertClm0, Drwsy-1, Lt Sdtn-2, Mod Sdtn-3, Dp Sdtn-4, UnArsble-5 05/18 01:33 Drug: NS 0.9% 1000 ml Route: IV; Rate: 100 ml/hr; Site: left upper arm; [facility] 04:37 Follow up: IV Status: Infusion continued upon admission 8 Outcome: 01:11 Decision to Hospitalize by Provider. fredy 04:36 Admitted to ICU accompanied by nurse, via stretcher. 8 04:36 Condition: good 04:36 Instructed on the need for admit, Demonstrated understanding of instructions. 04:37 Patient left the ED. jm8 Signatures: Dispatcher [employer] EDBakari Castle MD MD cha Garcia, Victoria, RN RN vg1 James Paul RN RN jm8 Filippo Ramirez2 Nereida Lobato
--- NOTE | 2021-05-18 01:12 | EDPHYS ---
Physician Documentation [facility] Name: Sharlene Ashraf Age: 85 yrs Sex: Female : 1935 Arrival Date: 05/17/2021 Time: 19:59 Bed 2 Private MD: ED Physician Bakari Red HPI: 05/17 22:12 This 85 yrs old Female presents to ER via Ambulatory with complaints of fredy Abdominal Pain - RIGHT SIDE, Vomiting. 22:12 The patient presents to the emergency department with nausea, vomiting, abdominal pain, fredy of the right upper quadrant, left upper quadrant, right lower quadrant and left lower quadrant. Onset: The symptoms/episode began/occurred 2 day(s) ago. Possible causes: unknown. The symptoms are aggravated by nothing. The symptoms are alleviated by nothing. Associated signs and symptoms: The patient has no apparent associated signs or symptoms. Severity of symptoms: At their worst the symptoms were moderate in the emergency department the symptoms are unchanged. The patient has experienced similar episodes in the past, a few times. Historical: - Allergies: 20:32 No Known Allergies; vg1 - Home Meds: 20:32 Albuterol Nebulizer [Active]; vg1 - PSHx: 20:32 Twisted Bowel; Umbilical hernia; vg1 - Immunization history:: Adult Immunizations up to date. - Social history:: Smoking status: Patient reports the use of cigarette tobacco products, smokes one-half pack cigarettes per day. ROS: 22:14 Constitutional: Negative for fever, chills, and weight loss, Eyes: Negative for injury, fredy pain, redness, and discharge, ENT: Negative for injury, pain, and discharge, Neck: Negative for injury, pain, and swelling, Cardiovascular: Negative for chest pain, palpitations, and edema, Respiratory: Negative for shortness of breath, cough, wheezing, and pleuritic chest pain, Back: Negative for injury and pain, : Negative for injury, bleeding, discharge, and swelling, MS/Extremity: Negative for injury and deformity, Skin: Negative for injury, rash, and discoloration, Neuro: Negative for headache, weakness, numbness, tingling, and seizure, Psych: Negative for depression, anxiety, suicide ideation, homicidal ideation, and hallucinations, Allergy/Immunology: Negative for hives, rash, and allergies, Endocrine: Negative for neck swelling, polydipsia, polyuria, polyphagia, and marked weight changes, Hematologic/Lymphatic: Negative for swollen nodes, abnormal bleeding, and unusual bruising. 22:14 Abdomen/GI: Positive for abdominal pain, nausea and vomiting, of the right upper quadrant, left upper quadrant, right lower quadrant and left lower quadrant. Exam: 22:14 Constitutional: This is a well developed, well nourished patient who is awake, alert, fredy and in no acute distress. Head/Face: Normocephalic, atraumatic. Eyes: Pupils equal round and reactive to light, extra-ocular motions intact. Lids and lashes normal. Conjunctiva and sclera are non-icteric and not injected. Cornea within normal limits. Periorbital areas with no swelling, redness, or edema. ENT: Nares patent. No nasal discharge, no septal abnormalities noted. Tympanic membranes are normal and external auditory canals are clear. Oropharynx with no redness, swelling, or masses, exudates, or evidence of obstruction, uvula midline. Mucous membranes moist. Neck: Trachea midline, no thyromegaly or masses palpated, and no cervical lymphadenopathy. Supple, full range of motion without nuchal rigidity, or vertebral point tenderness. No Meningismus. Chest/axilla: Normal chest wall appearance and motion. Nontender with no deformity. No lesions are appreciated. Cardiovascular: Regular rate and rhythm with a normal S1 and S2. No gallops, murmurs, or rubs. Normal PMI, no JVD. No pulse deficits. Respiratory: Lungs have equal breath sounds bilaterally, clear to auscultation and percussion. No rales, rhonchi or wheezes noted. No increased work of breathing, no retractions or nasal flaring. Back: No spinal tenderness. No costovertebral tenderness. Full range of motion. Skin: Warm, dry with normal turgor. Normal color with no rashes, no lesions, and no evidence of cellulitis. MS/ Extremity: Pulses equal, no cyanosis. Neurovascular intact. Full, normal range of motion. Neuro: Awake and alert, GCS 15, oriented to person, place, time, and situation. Cranial nerves II-XII grossly intact. Motor strength 5/5 in all extremities. Sensory grossly intact. Cerebellar exam normal. Normal gait. Psych: Awake, alert, with orientation to person, place and time. Behavior, mood, and affect are within normal limits. 22:14 Abdomen/GI: Inspection: distension, Bowel sounds: hyperactive, Palpation: mild abdominal tenderness, in all quadrants, Liver: no appreciated palpable abnormalities, Hernia: not appreciated. Vital Signs: 20:28 BP 107 / 74; Pulse 102; Resp 18; Temp 98.0; Pulse Ox 95% ; Weight 29.48 kg; Height 4 vg1 ft. 10 in. (147.32 cm); Pain 5/10; 21:47 BP 110 / 71; Pulse 89; Resp 16; Pulse Ox 96% on R/A; ak2 05/18 00:00 BP 98 / 74; Pulse 86; Resp 16; Pulse Ox 96% on R/A; 8 02:12 BP 103 / 68; Pulse 87; Resp 16; Pulse Ox 99% on R/A; 8 03:55 BP 120 / 71; Pulse 78; Resp 16; Pulse Ox 96% on R/A; 8 05/17 20:28 Body Mass Index 13.58 (29.48 kg, 147.32 cm) vg1 MDM: 05/17 21:40 Patient medically screened. fredy 22:15 Differential diagnosis: Nonspecific abd pain, cholecystitis, pancreatitis, fredy appendicitis, diverticulitis, gastroenteritis, AAA, appendicitis, bowel obstruction, coronary artery disease, cholecystitis. Data reviewed: vital signs, nurses notes, lab test result(s), EKG, radiologic studies, CT scan, plain films. Data interpreted: hospital monitor: rate is 89 beats/min, rhythm is regular, Pulse oximetry: on room air is 96 %. Test interpretation: by ED physician or midlevel provider: ECG, plain radiologic studies. Counseling: I had a detailed discussion with the patient and/or guardian regarding: the historical points, exam findings, and any diagnostic results supporting the discharge/admit diagnosis, lab results, radiology results. 05/17 22:12 Order name: Basic Metabolic Panel [facility] 05/17 22:12 Order name: CBC with Diff [facility] 05/17 22:12 Order name: LFT's [facility] 05/17 22:12 Order name: Magnesium [facility] 05/17 22:12 Order name: NT PRO-BNP [facility] 05/17 22:12 Order name: PT-INR; Complete Time: 23:02 [facility] 05/17 22:12 Order name: Troponin (emerg Dept Use Only); Complete Time: 00:09 [facility] 05/17 22:12 Order name: Lipase; Complete Time: 00:09 [facility] 05/17 22:12 Order name: Basic Metabolic Panel; Complete Time: 00:09 [facility] 05/17 22:12 Order name: CBC with Automated Diff; Complete Time: 23:02 [facility] 05/17 22:12 Order name: Liver (Hepatic) Function; Complete Time: 00:09 [facility] 05/17 22:12 Order name: Magnesium; Complete Time: 00:09 [facility] 05/17 22:12 Order name: NT PRO-BNP; Complete Time: 00:09 [facility] 05/17 22:12 Order name: XRAY Chest (1 view) [facility] 05/17 22:12 Order name: EKG; Complete Time: 22:13 [facility] 05/17 22:12 Order name: Cardiac monitoring; Complete Time: 22:39 [facility] 05/17 22:12 Order name: CT Abd/Pelvis - IV Contrast Only [facility] 05/18 01:32 Order name: CONS Physician Consult [facility] 05/18 01:32 Order name: Chest Single View XRAY [facility] 05/18 03:02 Order name: SARS-COV-2 RT PCR [facility] 05/18 03:55 Order name: Chest Single View XRAY [facility] 05/17 22:12 Order name: EKG - Nurse/Tech; Complete Time: 22:39 [facility] 05/17 22:12 Order name: IV Saline Lock; Complete Time: 22:39 [facility] 05/17 22:12 Order name: Labs collected and sent; Complete Time: 22:39 [facility] 05/17 22:12 Order name: O2 Per Protocol; Complete Time: 22:39 [facility] 05/17 22:12 Order name: O2 Sat Monitoring; Complete Time: 22:39 [facility] 05/17 22:51 Order name: Labs - recollect needed: chemistry needed; Complete Time: 23:23 [facility] 05/18 00:09 Order name: Roberto; Complete Time: 02:07 [facility] 05/18 01:07 Order name: NG Tube: to low int suction; Complete Time: 02:07 [facility] Administered Medications: 22:36 Not Given (Patient Refused): morphine 1 mg IVP once; RASS on ADMIN: Combtv4, Very jm8 Agttd3, Agttd2, Rstlss1, AlertClm0, Drwsy-1, Lt Sdtn-2, Mod Sdtn-3, Dp Sdtn-4, UnArsble-5 22:37 Drug: NS 0.9% (20 ml/kg) 20 ml/kg Route: IV; Rate: 1 bolus; Site: left upper arm; [facility] 05/18 02:11 Follow up: Response: No adverse reaction [facility] 02:12 Follow up: IV Status: Completed infusion [facility] 05/17 22:37 Drug: Zosyn (piperacillin-tazobactam) 3 grams Route: IVPB; Infused Over: 60 mins; Site: [facility] left [facility] arm; 05/18 02:12 Follow up: IV Status: Completed infusion [facility] 05/17 22:37 Drug: Pepcid (famotidine) 20 mg Route: IVP; Site: left upper arm; [facility] 22:44 Follow up: Response: No adverse reaction [facility] 22:37 Drug: Zofran (Ondansetron) 4 mg Route: IVP; Site: left [facility] arm; [facility] 22:43 Follow up: Response: No adverse reaction [facility] 22:37 Not Given (Patient Refused): morphine 1 mg IVP once; RASS on ADMIN: Combtv4, Very jm8 Agttd3, Agttd2, Rstlss1, AlertClm0, Drwsy-1, Lt Sdtn-2, Mod Sdtn-3, Dp Sdtn-4, UnArsble-5 05/18 01:33 Drug: NS 0.9% 1000 ml Route: IV; Rate: 100 ml/hr; Site: left [facility] arm; [facility] 04:37 Follow up: IV Status: Infusion continued upon admission [facility] Disposition Summary: 05/18/21 01:11 Hospitalization Ordered Hospitalization Status: Inpatient Admission fredy Provider: Ynes Lopez cha Condition: Fair fredy Problem: new fredy Symptoms: have improved fredy Bed/Room Type: Standard fredy Location: Intensive Care Unit(05/18/21 02:12) cg Room Assignment: ER - 9(05/18/21 02:12) cg Diagnosis - COPD/ Chronic obstructive pulmonary disease, unspecified fredy - Abdominal pain, Generalized fredy - Other and unspecified intestinal obstruction - small bowel obstruction(SBO) fredy - Vomiting fredy Forms: - Medication Reconciliation Form fredy - SBAR form fredy Signatures: Dispatcher [employer] EDMS Bakari Red MD MD cha Garcia, Cindy, RN RN cg Anne-Marie Barrera 2 Ivanna Ortiz RN RN vg1 James Paul RN RN jm8 Filippo Ramirez ia2 Corrections: (The following items were deleted from the chart) 05/17 23:26 22:13 CORONAVIRUS+MR.LAB.BRZ ordered. EDMS EDMS 05/18 01:41 01:11 Telemetry/MedSurg (Inpatient) [facility] 01:41 01:11 [facility] 01:51 01:02 CORONAVIRUS+MR.LAB.BRZ ordered. EDMS EDMS 02:12 01:41 BR ER HOLD cg 02:12 01:41 ERHOLD- cg cg
[2021-05-18] MEDS ORDERED: NA CHLORIDE 0.9% 1,000 ML ONE ×2 (01:59→08:03)
--- NOTE | 2021-05-18 03:33 | P.HP ---
Certification for Inpatient Patient admitted to: Inpatient With expected LOS: <2 Midnights Patient will require the following post-hospital care: None Practitioner: I am a practitioner with admitting privileges, knowledge of patient current condition, hospital course, and medical plan of care. Services: Services provided to patient in accordance with Admission requirements found in Title 42 Section 412.3 of the Code of Federal Regulations <Jamal Littlejohn - Last Filed: 05/18/21 03:28> Patient History Date of Service: 05/18/21 Reason for admission: SBO History of Present Illness: Ms. Ashraf is an 85 yo F with COPD and tobacco use disorder here today with vomiting beginning at 2am. Denies night sweats, chills, abdominal pain. Had BM yesterday morning. CT scan shows dilated small bowel loops measuring up to 4.47cm, consistent with SBO. WBC 12.9. NG tube placed in ED. - Past Medical/Surgical History Diabetic: No -: COPD -: 2 abdominal surgeries, hernia repair in the past Psychosocial/ Personal History: lives with granddaughter - Family History Family History: Reviewed- Non-Contributory - Social History Smoking Status: Current every day smoker Alcohol use: No CD- Drugs: No Caffeine use: Yes Place of Residence: Home <Jamal Littlejohn - Last Filed: 05/18/21 03:28> Date of Service: 05/18/21 <Ynes Lopez - Last Filed: 05/21/21 01:46> Review of Systems 10-point ROS is otherwise unremarkable Gastrointestinal: Nausea, Vomiting <Lilly Littlejohnaaron Eldridge - Last Filed: 05/18/21 03:28> Physical Examination - Physical Exam General: Alert, In no apparent distress, Cachectic HEENT: Atraumatic, PERRLA, Mucous membr. moist/pink, EOMI, Sclerae nonicteric Neck: Supple, 2+ carotid pulse no bruit, No LAD, Without JVD or thyroid abnormality Respiratory: Diminished, Expiratory wheezes Cardiovascular: Regular rate/rhythm, Normal S1 S2 Gastrointestinal: Hypoactive, No ascites, No tenderness, No masses, No rebound, No guarding Musculoskeletal: No tenderness Integumentary: No rashes Neurological: Normal speech, Normal strength at 5/5 x4 extr, Normal tone, Normal affect Lymphatics: No axilla or inguinal lymphadenopathy - Studies Laboratory Data (last 24 hrs) 05/17/21 23:22: Sodium 139, Potassium 3.9, BUN 20 H, Creatinine 0.53 L, Glucose 104, Magnesium 1.8, Total Bilirubin 0.6, AST 18, ALT 17, Alkaline Phosphatase 84, Lipase 25 L 05/17/21 22:30: PT 10.4, INR 0.91 05/17/21 22:30: WBC 12.90 H, Hgb 16.0 H, Hct 47.6 H, Plt Count 365 <Jamal Littlejohn - Last Filed: 05/18/21 03:28> Assessment and Plan - Plan Assessment SBO COPD tobacco use disorder Plan SBO - NG tube in place, surgery consulted, NPO, continue IVF hydration and pain management, antiemetics as needed, continue IV antibioitcs COPD - breathing treatments as needed tobacco use disorder - elementary school counselor cessation DVT ppx Discharge Plan: Home Plan to discharge in: 48 Hours - Advance Directives Does patient have a Living Will: No Does patient have a Durable POA for Healthcare: No - Code Status/Comfort Care Code Status Assessed: Yes (full code ) Critical Care: No Time Spent Managing Pts Care (In Minutes): 70 <Jamal Littlejohn - Last Filed: 05/18/21 03:28> - Problems (Diagnosis) (1) SBO (small bowel obstruction) Current Visit: Yes Status: Acute (2) COPD (chronic obstructive pulmonary disease) Current Visit: Yes Status: Acute <Ynes Lopez - Last Filed: 05/21/21 01:46> Date of Service: 05/18/21 Agree with plan of care as mentioned above. Patient will be admitted for small- bowel obstruction. Patient not wanting NG tube so we will leave this out at this time. If nausea and vomiting will replace. General surgery consultation pending <Ynes Lopez - Last Filed: 05/21/21 01:46>
[2021-05-18] MEDS ORDERED: NA CHLORIDE 0.9% 1,000 ML IV SCH (04:28)
[2021-05-18] MEDS ORDERED: MORPHINE 2 MG/ML SYR IV PRN (04:28)
[2021-05-18] MEDS ORDERED: ONDANSETRON 4 MG/2 ML VIAL IV PRN (04:28)
[2021-05-18] MEDS ORDERED: IPRATROPIUM BROM 0.5MG/2.5ML ONE ×4 (05:02→20:41)
[2021-05-18] MEDS ORDERED: ALBUTEROL 2.5 MG/3 ML NEB SOL ONE (05:02)
[2021-05-18 05:08] VITALS: BMI 13.4
[2021-05-18] MEDS: IPRATROPIUM BROM 0.5MG/2.5ML NEB SCH ×4 (05:50→20:00)
[2021-05-18] MEDS: ALBUTEROL 2.5 MG/3 ML NEB SOL NEB SCH (05:50)
[2021-05-18 06:16] LABS: Absolute Lymphocytes (CBC) 1.1 K/uL (0.7-4.9); Basophils % 0.4 % (0-1.3); Hematocrit 39.7 % (36.0-45.0); Lymphocytes % 10.7 % (15.3-44.8); MPV 9.4 fL (7.6-11.3); RBC Red Blood Cell Count 4.28 M/uL (3.86-4.86)
[2021-05-18 06:22] LABS: Albumin 3.3 g/dL (3.4-5.0); Bilirubin Total 0.6 mg/dL (0.2-1.0); Potassium 3.8 mmol/L (3.5-5.1); Protein, Total 6.6 g/dL (6.4-8.2)
--- NOTE | 2021-05-18 07:40 | RAD REPORT ---
EXAM DESCRIPTION: RAD - Chest Single View - 05/17/2021 10:51 pm CLINICAL HISTORY: Abdominal distention;Cough;COPD COMPARISON: None TECHNIQUE: AP portable chest image was obtained 05/17/2021 10:51 pm . FINDINGS: Fibrotic lung changes are present. No comparison imaging is available. Mild interstitial e emilee or infiltrate could potentially be masked by the severity of chronic disease. Failure and volume overload are not suspected. Heart and vasculature are normal. No measurable pleural effusion and no pneumothorax. No acute bony abnormality seen. No acute aortic findings suspected. IMPRESSION: Baseline study showing fibrotic lung pattern most likely baseline COPD. Severity of chronic disease could mask early interstitial edema or infiltrate.
[2021-05-18] MEDS ORDERED: PIPER/TAZO/NS 3.375gm 3.375 GM/100 ML BAG IVPB SCH (09:00)
--- NOTE | 2021-05-18 12:39 | EKG ---
Test Date: 2021-05-17 Test Time: 22:22:14 [facility] Paramedic: KIM MEASUREMENT RESULTS: Intervals: Rate: 89 MS: 128 QRSD: 78 QT: 382 QTc: 464 [place]: P: 79 MS: 128 QRS: 59 T: 87 INTERPRETIVE STATEMENTS: Normal sinus rhythm Nonspecific T wave abnormality Abnormal ECG No previous ECG available for comparison Electronically Signed On 05-18-21 12:37:27 CDT by Vamshi Keita
[2021-05-18] MEDS: D5 0.9 NS 1,000 ML IV SCH ×2 (12:58→23:11)
[2021-05-18] MEDS ORDERED: D5 0.9 NS 1,000 ML IV ONE ×2 (13:19→19:50)
[2021-05-18] MEDS ORDERED: MINERAL OIL 30 ML UCUP PO ONE ×2 (13:30→16:00)
[2021-05-18 13:47] LABS: Urine Appearance TURBID (Clear); Urine Bilirubin NEGATIVE (Negative); Urine Blood TRACE (Negative); Urine Color YELLOW (Yellow); Urine Glucose NEGATIVE (Negative); Urine Protein NEGATIVE (Negative); Urine Specific Gravity >=1.030 (1.005-1.030); Urine Urobilinogen 0.2 mg/dL (0.2-1.0)
[2021-05-18 13:48] LABS: Urine Microscopic Reflex ORDER UMIC
[2021-05-18 13:55] LABS: Urine Bacteria <20 /HPF (<20); Urine RBC <5 /HPF (NONE SEEN)
[2021-05-18 13:56] LABS: Urine Amorphous Sediment 3+ /HPF (NONE SEEN)
[2021-05-18] MEDS ORDERED: ONDANSETRON 4 MG/2 ML VIAL ONE (14:11)
[2021-05-18] MEDS ORDERED: KETOROLAC 30 MG/ML INJ IV ONE (14:22)
[2021-05-18] MEDS ORDERED: KETOROLAC 30 MG/ML INJ ONE (14:46)
[2021-05-18] MEDS: PIPER/TAZO/NS 3.375gm 3.375 GM/100 ML BAG IVPB SCH (17:15)
[2021-05-19] MEDS: PIPER/TAZO/NS 3.375gm 3.375 GM/100 ML BAG IVPB SCH ×3 (00:01→17:26)
[2021-05-19] MEDS: IPRATROPIUM BROM 0.5MG/2.5ML NEB SCH ×4 (01:35→19:30)
[2021-05-19] MEDS ORDERED: IPRATROPIUM BROM 0.5MG/2.5ML ONE ×3 (01:59→15:09)
[2021-05-19 04:07] LABS: ALT/SGPT 15 U/L (12-78); AST/SGOT 16 U/L (15-37); Albumin 2.8 g/dL (3.4-5.0); Alkaline Phosphatase 66 U/L (45-117); BUN Blood Urea Nitrogen 11 mg/dL (7-18); Bicarbonate 25 mmol/L (21-32); Bilirubin Total 0.5 mg/dL (0.2-1.0); Glucose Level 122 mg/dL (74-106); Potassium 3.5 mmol/L (3.5-5.1); Protein, Total 5.7 g/dL (6.4-8.2); Sodium Level 145 mmol/L (136-145)
[2021-05-19 04:09] LABS: Absolute Lymphocytes (CBC) 1.4 K/uL (0.7-4.9); Basophils % 0.2 % (0-1.3); Hematocrit 37.6 % (36.0-45.0); Lymphocytes % 13.3 % (15.3-44.8); MPV 9.3 fL (7.6-11.3); RBC Red Blood Cell Count 4.01 M/uL (3.86-4.86)
[2021-05-19] MEDS ORDERED: KCL 20 MEQ/100 mL IVPB 20 MEQ/100 ML BAG IV SCH (07:00)
[2021-05-19] MEDS ORDERED: KCL 20 MEQ/100 mL IVPB 20 MEQ/100 ML BAG IV ONE (08:50)
[2021-05-19] MEDS: D5 0.9 NS 1,000 ML IV SCH ×3 (09:00→18:44)
--- NOTE | 2021-05-19 11:45 | RAD REPORT ---
EXAM DESCRIPTION: CT - Abdomen Pelvis W Contrast - 05/18/2021 6:53 am CLINICAL HISTORY: The patient is 85 years old and is Female; ABD PAIN TECHNIQUE: Axial computed tomography images of the abdomen and pelvis with intravenous contrast. S agittal and coronal reformatted images were created and reviewed. This CT exam was performed using one or more of the following dose reduction techniques: automated exposure control, adjustment of t he mA and/or kV according to patient size, and/or use of iterative reconstruction technique. COMPARISON: No relevant prior studies available. FINDINGS: Lung bases: 1.7 cm round hyperdense focus in the left lower lobe. Emphysematous changes in the lung bases. ABDOMEN: Liver: Unremarkable. No mass. Gallbladder and bile ducts: Unremarkable. No calcified stones. No ductal dilation. Pancreas: Unremarkable. No mass. No ductal dilation. Spleen: Unremarkable. No splenomegaly. Adrenals: Adrenal glands are poorly visualized. There is the suggestion of a 1.8 cm indeterminate right adrenal nodule. ACR White Paper gu idelines (Lucio et al. JACR 2017; 14(8):0626-8614) suggest the following. If there is no hist ory of malignancy consider a follow-up low dose, non-contrast adrenal CT or chemical-shift adrenal MR I in 12 months. If there is a history of malignancy consider a low dose, non-emergent, non-contrast adrenal CT or chemical-shift adrenal MRI follow-up study. The bladder is distended. Kidneys and ureters: Unremarkable. No solid mass. No hydronephrosis. Stomach and bowel: Dilated loops of small bowel measuring up to 4.4 cm in diameter. No mucosal thickening. PELVIS: Appendix: No findings to suggest acute appendicitis. Bladder: See above. Reproductive: Unremarkable as visualized. ABDOMEN and PELVIS: Intraperitoneal space: Unremarkable. No free air. No significant fluid collection. Bones/joints: Mild anterolisthesis of L4 on L5. No acute fracture. No dislocation. Soft tissues: Unremarkable. Vasculature: Scattered atherosclerotic vascular calcifications causing narrowing at the origins of the mesenteric and renal arteries. The inferior mesenteric artery is poorly visualized. No abdominal aortic aneurysm. Lymph nodes: Unremarkable. No enlarged lymph nodes. Other findings: Postsurgical changes in the right upper quadrant. IMPRESSION: Dilated loops of small bowel measuring up to 4.4 cm in diameter. Findings are consiste nt with small bowel obstruction. Electronically signed by: Efren Brasher MD 05/18/2021 12:53 AM CDT Due to temporary technical issues with the PACS/Fluency reporting system, reports are being signed by the in house radiologist without review as a courtesy to ensure prompt reporting. The interpreting r adiologist is fully responsible for the content of the report.
--- NOTE | 2021-05-19 11:47 | RAD REPORT ---
EXAM DESCRIPTION: RAD - Chest Single View - 05/18/2021 1:48 am CLINICAL HISTORY: The patient is 85 years old and is Female; ng tube placement TECHNIQUE: Frontal view of the chest. COMPARISON: CT abdomen and pelvis May 17, 2021. FINDINGS: Lungs: Hyperexpansion in the lungs bilaterally. Pleural space: Unremarkable. No pn eumothorax. Heart: Unremarkable. Mediastinum: Unremarkable. Bones/joints: Unremarkable. Vasculature: Aortic calcifications. Tubes, lines and devices: Nasogastric tube with tip below the diaphragm and overlying the upper abdomen. Upper abdomen: 1.9 cm hyperdense focus overlying t he left hemidiaphragm corresponding to the density seen on the prior CT. IMPRESSION: 1. No consolidation. 2. Nasogastric tube with tip below the diaphragm and overlying the upper abdomen. Electronically signed by: Efren Brasher MD 05/18/2021 2:02 AM CDT Due to temporary technical issues with the PACS/Fluency reporting system, reports are being signed by the in house radiologist without review as a courtesy to ensure prompt reporting. The interpreting r adiologist is fully responsible for the content of the report.
--- NOTE | 2021-05-19 11:49 | RAD REPORT ---
EXAM DESCRIPTION: RAD - Abdomen 1 View (KUB) - 05/18/2021 5:54 am CLINICAL HISTORY: Verify NG tube placement COMPARISON: None. TECHNIQUE: XR ABDOMEN 1 VIEW (KUB) 05/18/2021 5:30 AM CDT FINDINGS: There are several dilated small bowel loops throughout the abdomen. There are no abnormal radiopaque foreign bodies or abnormal calcifications. Osseous structures are grossly unremarkable. NG tube tip is in the stomach. IMPRESSION: NG tube tip in the stomach. Electronically signed by: Michael Varela MD 05/18/2021 6:07 AM CDT Due to temporary technical issues with the PACS/Fluency reporting system, reports are being signed by the in house radiologist without review as a courtesy to ensure prompt reporting. The interpreting r adiologist is fully responsible for the content of the report.
--- NOTE | 2021-05-19 12:05 | RAD REPORT ---
EXAM DESCRIPTION: RAD - Chest Single View - 05/18/2021 4:42 am ADDENDUM #1 Verbal results were communicated by Dwayne Ndiaye and report the receipt was confirmed by Mellisa Parker RN on 05/18/2021 4: 58 AM CDT. Electronically signed by: Efren Brasher MD 05/18/2021 5:20 AM CDT End of Addendum EXAM: XR Chest, 1 View CLINICAL HISTORY: The patient is 85 years old and is Female; ng tube placement TECHNIQUE: Frontal view of the chest. COMPARISON: Chest x-ray May 18, 2021 1:42 AM. FINDINGS: Lungs: No consolidation. Prominent interstitial markings. 1.9 cm round hyperdense focus overlying the left lower lobe, similar to prior. Pleural space: Unremarkable. No pneumothorax. Heart: Unremarkable. Mediastinum: Unremarkable. Bones/joints: Unremarkable. Vasculature: Aortic calcifications. Tubes, lines and devices: Nasogastric tube with tip folded in the lower esophagus above the diap hragm in one image, and with the tip at or slightly below the diaphragm in the second image. Upper abdomen: Elevation of the left hemidiaphragm. IMPRESSION: 1. Nasogastric tube with tip folded in the lower esophagus above the diaphragm in one image, and with the tip at or slightly below the diaphragm in the second image. 2. No consolidation. Electronically signed by: Efren Brasher MD 05/18/2021 4:54 AM CDT ADDENDUM #1 Verbal results were communicated by Dwayne Ndiaye and report the receipt was confirmed by Mellisa Parker RN on 05/18/2021 4: 58 AM CDT. Electronically signed by: Efren Brasher MD 05/18/2021 5:20 AM CDT End of Addendum ADDENDUM #1 Verbal results were communicated by Dwayne Ndiaye and report the receipt was confirmed by Mellisa Parker RN on 05/18/2021 4: 58 AM CDT. Electronically signed by: Efren Brasher MD 05/18/2021 5:20 AM CDT End of Addendum EXAM: XR Chest, 1 View CLINICAL HISTORY: The patient is 85 years old and is Female; ng tube placement TECHNIQUE: Frontal view of the chest. COMPARISON: Chest x-ray May 18, 2021 1:42 AM. FINDINGS: Lungs: No consolidation. Prominent interstitial markings. 1.9 cm round hyperdense focus overlying the left lower lobe, similar to prior. Pleural space: Unremarkable. No pneumothorax. Heart: Unremarkable. Mediastinum: Unremarkable. Bones/joints: Unremarkable. Vasculature: Aortic calcifications. Tubes, lines and devices: Nasogastric tube with tip folded in the lower esophagus above the diap hragm in one image, and with the tip at or slightly below the diaphragm in the second image. Upper abdomen: Elevation of the left hemidiaphragm. IMPRESSION: 1. Nasogastric tube with tip folded in the lower esophagus above the diaphragm in one image, and with the tip at or slightly below the diaphragm in the second image. 2. No consolidation. Due to temporary technical issues with the PACS/Fluency reporting system, reports are being signed by the in house radiologist without review as a courtesy to ensure prompt reporting. The interpreting r adiologist is fully responsible for the content of the report.
[2021-05-19] MEDS ORDERED: MINERAL OIL 30 ML UCUP PO ONE ×2 (12:19→19:00)
[2021-05-19] MEDS ORDERED: D5 0.9 NS 1,000 ML IV ONE (12:20)
--- NOTE | 2021-05-19 17:33 | P.PN ---
Subjective Date of Service: 05/18/21 Subjective: No new changes, No C/O voiced, Improving Patient's clinical symptoms are improving. We will start clear liquid diet in the morning. Review of Systems 10-point ROS is otherwise unremarkable Physical Examination - Vital Signs Temperature: 97.4 F Blood Pressure: 102/60 Pulse: 68 Respirations: 23 Pulse Ox (%): 94 - Physical Exam General: Alert, In no apparent distress, Oriented x3 Respiratory: Diminished Cardiovascular: Regular rate/rhythm, Normal S1 S2, No murmurs Gastrointestinal: Normal bowel sounds, Soft and benign, Non-distended, No rebound, No guarding, Tenderness Musculoskeletal: No clubbing, No swelling, No tenderness Neurological: Sensation intact, Cranial nerves 3-12 intact - Studies Medications List Reviewed: Yes Assessment & Plan - Problems (Diagnosis) (1) SBO (small bowel obstruction) Current Visit: Yes Status: Acute (2) COPD (chronic obstructive pulmonary disease) Current Visit: Yes Status: Acute - Plan Plan: 1. Mineral oil 30 cc p.o. x1 2. General surgery consultation pending 3. Monitor electrolytes 4. Out of bed and ambulate 5. Increase nutritional supplementation 6. GI and DVT prophylaxis Discharge Plan: Home Plan to discharge in: Greater than 2 days - Advance Directives Does patient have a Living Will: No Does patient have a Durable POA for Healthcare: No - Code Status/Comfort Care Code Status Assessed: Yes Code Status: Full Code Critical Care: No Time Spent Managing PTS Care (In Minutes): 35
[2021-05-20] MEDS: PIPER/TAZO/NS 3.375gm 3.375 GM/100 ML BAG IVPB SCH ×3 (00:49→16:51)
[2021-05-20] MEDS: IPRATROPIUM BROM 0.5MG/2.5ML NEB SCH ×4 (01:50→20:50)
[2021-05-20 08:31] LABS: BUN Blood Urea Nitrogen 7 mg/dL (7-18); Bicarbonate 25 mmol/L (21-32); Glucose Level 95 mg/dL (74-106); Magnesium 1.8 mg/dL (1.8-2.4); Potassium 3.2 mmol/L (3.5-5.1); Sodium Level 144 mmol/L (136-145)
[2021-05-20] MEDS: ALBUTEROL 2.5 MG/3 ML NEB SOL NEB SCH (09:20)
[2021-05-20] MEDS: D5 0.9 NS 1,000 ML IV SCH ×2 (13:24→15:00)
[2021-05-21] MEDS: D5 0.9 NS 1,000 ML IV SCH ×2 (01:00→11:04)
[2021-05-21] MEDS: PIPER/TAZO/NS 3.375gm 3.375 GM/100 ML BAG IVPB SCH ×2 (01:12→08:24)
[2021-05-21 01:51] VITALS: O2SAT 93
--- NOTE | 2021-05-21 01:51 | P.PN ---
Date of Service: 05/19/21 Subjective Patient looks to be doing well. She is having some flatus. Awaiting to go to the floor. Low oxygen level so will check room air in the morning. Review of Systems 10-point ROS is otherwise unremarkable Physical Examination - Vital Signs Reviewed - Physical Exam General: Alert, In no apparent distress, Oriented x3 Respiratory: Diminished but otherwise clear Cardiovascular: Regular rate/rhythm, Normal S1 S2, No murmurs Gastrointestinal: Normal bowel sounds, Soft and benign, Non-distended, No reboun d, No guarding, Tenderness Musculoskeletal: No clubbing, No swelling, No tenderness Neurological: Sensation intact, Cranial nerves 3-12 intact; diminished strengths - Studies Medications List Reviewed: Yes Assessment & Plan - Problems (Diagnosis) (1) SBO (small bowel obstruction) Current Visit: Yes Status: Acute (2) COPD (chronic obstructive pulmonary disease) Current Visit: Yes Status: Acute - Plan Plan: Continue with plan of care as mentioned below 1. Repeat Mineral oil 30 cc p.o. x1 2. General surgery consultation appreciated 3. Monitor electrolytes 4. Out of bed and ambulate 5. Increase nutritional supplementation 6. Outpatient Pulmonary consultation 7. GI and DVT prophylaxis
--- NOTE | 2021-05-21 01:57 | P.PN ---
Date of Service: 05/20/21 Subjective Patient is clinically doing much better. Patient with large bowel movement. Oxygen level was low and arrange for home oxygen; spoke with granddaughter and she was not ready to take patient home at this time as she was not aware of home oxygen requirements. Will recheck room air oxygen in the morning but anticipate discharge home. Review of Systems 10-point ROS is otherwise unremarkable Physical Examination - Vital Signs Reviewed - Physical Exam General: Alert, In no apparent distress, Oriented x3 Respiratory: Diminished but otherwise clear Cardiovascular: Regular rate/rhythm, Normal S1 S2, No murmurs Gastrointestinal: Normal bowel sounds, Soft and benign, Non-distended, No rebound, No guarding, Tenderness Musculoskeletal: No clubbing, No swelling, No tenderness Neurological: Sensation intact, Cranial nerves 3-12 intact; diminished strengths - Studies Medications List Reviewed: Yes Assessment & Plan - Problems (Diagnosis) (1) SBO (small bowel obstruction) Current Visit: Yes Status: Acute (2) COPD (chronic obstructive pulmonary disease) Current Visit: Yes Status: Acute - Plan Plan: Continue with plan of care as mentioned below 1. Patient had a large bowel movement. Plan to discharge on bowel regimen 2. General surgery consultation appreciated; outpatient follow-up 3. Monitor electrolytes 4. Continue outpatient therapy as needed 5. Increase nutritional supplementation 6. Outpatient Pulmonary consultation 7. GI and DVT prophylaxis
[2021-05-21 07:44] LABS: BUN Blood Urea Nitrogen 4 mg/dL (7-18); Bicarbonate 26 mmol/L (21-32); Glucose Level 95 mg/dL (74-106); Magnesium 1.8 mg/dL (1.8-2.4); Phosphorus 2.5 mg/dL (2.5-4.9); Sodium Level 143 mmol/L (136-145)
[2021-05-21 07:49] LABS: Potassium 2.7 mmol/L (3.5-5.1)
[2021-05-21] MEDS ORDERED: MAGNESIUM SULFATE 1 gm IVPB 1 GM/100 ML BAG IV ONE (07:55)
[2021-05-21] MEDS: KCL 20 MEQ/100 mL IVPB 20 MEQ/100 ML BAG IV SCH ×3 (08:54→13:36)
[2021-05-21] MEDS ORDERED: [UNRECOGNIZED DRUG - REMARK] PO SCH (09:00)
[2021-05-21] MEDS: IPRATROPIUM BROM 0.5MG/2.5ML NEB SCH (09:02)
--- NOTE | 2021-05-21 10:12 | P.DS ---
Admission Date: 05/18/21 Discharge Date: 05/21/21 Primary Care Provider: unknown Disposition: ROUTINE DISCHARGE Discharge Condition: GOOD Reason for Admission: SBO Consultations: Surgery-Dr. Alex Procedures: CT Scan: COMPARISON: No relevant prior studies available. FINDINGS: Lung bases: 1.7 cm round hyperdense focus in the left lower lobe. Emphysematous changes in the lung bases. ABDOMEN: Liver: Unremarkable. No mass. Gallbladder and bile ducts: Unremarkable. No calcified stones. No ductal dilation. Pancreas: Unremarkable. No mass. No ductal dilation. Spleen: Unremarkable. No splenomegaly. Adrenals: Adrenal glands are poorly visualized. There is the suggestion of a 1.8 cm indeterminate right adrenal nodule. ACR White Paper guidelines (Lucio et al. JACR 2017; 14(8):2751-4602) suggest the following. If there is no history of malignancy consider a follow- up low dose, non-contrast adrenal CT or chemical-shift adrenal MRI in 12 months. If there is a history of malignancy consider a low dose, non-emergent, non- contrast adrenal CT or chemical-shift adrenal MRI follow-up study. The bladder is distended. Kidneys and ureters: Unremarkable. No solid mass. No hydronephrosis. Stomach and bowel: Dilated loops of small bowel measuring up to 4.4 cm in diameter. No mucosal thickening. PELVIS: Appendix: No findings to suggest acute appendicitis. Bladder: See above. Reproductive: Unremarkable as visualized. ABDOMEN and PELVIS: Intraperitoneal space: Unremarkable. No free air. No significant fluid collection. Bones/joints: Mild anterolisthesis of L4 on L5. No acute fracture. No dislocation. Soft tissues: Unremarkable. Vasculature: Scattered atherosclerotic vascular calcifications causing narrowing at the origins of the mesenteric and renal arteries. The inferior mesenteric artery is poorly visualized. No abdominal aortic aneurysm. Lymph nodes: Unremarkable. No enlarged lymph nodes. Other findings: Postsurgical changes in the right upper quadrant. IMPRESSION: Dilated loops of small bowel measuring up to 4.4 cm in diameter. Findings are consistent with small bowel obstruction. CXR: COMPARISON: Chest x-ray May 18, 2021 1:42 AM. FINDINGS: Lungs: No consolidation. Prominent interstitial markings. 1.9 cm round hyperdense focus overlying the left lower lobe, similar to prior. Pleural space: Unremarkable. No pneumothorax. Heart: Unremarkable. Mediastinum: Unremarkable. Bones/joints: Unremarkable. Vasculature: Aortic calcifications. Tubes, lines and devices: Nasogastric tube with tip folded in the lower esophagus above the diaphragm in one image, and with the tip at or slightly below the diaphragm in the second image. Upper abdomen: Elevation of the left hemidiaphragm. IMPRESSION: 1. Nasogastric tube with tip folded in the lower esophagus above the diaphragm in one image, and with the tip at or slightly below the diaphragm in the second image. 2. No consolidation. Medical problem list: Small bowel obstruction resolved COPD on chronic oxygen Brief History of Present Illness: 85-year-old female with history of COPD and tobacco use disorder here today with vomiting beginning at 2am. Denies night sweats, chills, abdominal pain. Had BM yesterday morning. CT scan shows dilated small bowel loops measuring up to 4.47cm, consistent with SBO. WBC 12.9. NG tube placed in ED. patient was admitted for treatment. Hospital Course: Patient presented with small bowel obstruction. Patient was seen and evaluated by surgery. Patient did require NG tube. Patient improved during the course of her stay. NG tube removed. Patient tolerating current diet. No intervention was required. Small bowel obstruction resolved. At discharge the patient will continue with amoxicillin 500 mg 1 pill twice daily for 5 more days. The patient will also be provided docusate daily as a stool softener. Mineral oil will also be provided as needed. Recommend follow-up with surgery in 1 week to follow-up his hospitalization and continue her care. Patient with COPD. Patient required oxygen during the course of her stay. Patient still requires home oxygen at discharge. Home oxygen arranged. For her COPD the patient will continue with prednisone 20 mg daily for the next 5 days. Patient should continue with albuterol and Atrovent nebs 1 unit dose 3 times a day as needed for shortness of breath. The patient will be provided Symbicort 2 puffs twice daily for COPD. Patient should follow-up with pulmonology as an outpatient to further address her COPD. Her oxygen can be weaned off over time. Maintain oxygen above 93%. Currently on 2 L per nasal cannula. Vital Signs/Physical Exam: Temp Pulse Resp BP Pulse Ox 98.1 F 73 17 141/63 H 96 05/21/21 08:00 05/21/21 08:00 05/21/21 08:00 05/21/21 08:00 05/21/21 08:00 General: Alert, In no apparent distress, Oriented x3, Cooperative HEENT: Atraumatic Neck: Supple Respiratory: Clear to auscultation bilaterally, Normal air movement Cardiovascular: Normal pulses, Regular rate/rhythm Gastrointestinal: Normal bowel sounds, No tenderness, No masses, No rebound, No guarding Musculoskeletal: No erythema, No tenderness, No warmth Integumentary: No tenderness/swelling, No erythema, No warmth, No cyanosis Neurological: Normal speech, Normal strength at 5/5 x4 extr, Normal tone, Normal affect Laboratory Data at Discharge: WBC 10.80 K/uL (4.3-10.9) 05/19/21 03:13 Hgb 12.7 g/dL (12.0-15.0) 05/19/21 03:13 Hct 37.6 % (36.0-45.0) 05/19/21 03:13 Plt Count 283 K/uL (152-406) 05/19/21 03:13 PT 10.4 SECONDS (9.5-12.5) 05/17/21 22:30 INR 0.91 05/17/21 22:30 Sodium 143 mmol/L (136-145) 05/21/21 06:47 Potassium 2.7 mmol/L (3.5-5.1) L* 05/21/21 06:47 BUN 4 mg/dL (7-18) L 05/21/21 06:47 Creatinine 0.37 mg/dL (0.55-1.3) L 05/21/21 06:47 Glucose 95 mg/dL (74-106) 05/21/21 06:47 Phosphorus 2.5 mg/dL (2.5-4.9) 05/21/21 06:47 Magnesium 1.8 mg/dL (1.8-2.4) 05/21/21 06:47 Total Bilirubin 0.5 mg/dL (0.2-1.0) 05/19/21 03:13 AST 16 U/L (15-37) 05/19/21 03:13 ALT 15 U/L (12-78) 05/19/21 03:13 Alkaline Phosphatase 66 U/L (45-117) 05/19/21 03:13 Lipase 25 U/L (73-393) L 05/17/21 23:22 Home Medications: Ipratropium Neb [Atrovent*] 0.5 mg IH BID 05/18/21 Pediatric Multivitamin No.101 [Gummy] 1 each PO DAILY 05/18/21 Albuterol Neb [Proventil 0.083% Neb Soln] 2.5 mg NEB Q6HP #60 amp 05/20/21 Amoxicillin/Potassium Clav [Augmentin 500-125 Tablet] 1 each PO BID #10 tablet 05/20/21 Docusate [Colace Cap] 100 mg PO BID #60 cap 05/20/21 Mineral Oil 30 ml PO M,W,F #1000 ml 05/20/21 predniSONE [Deltasone] 20 mg PO DAILY #5 tab 05/20/21 Budesonide/Formoterol Fumarate [Symbicort 160-4.5 Mcg Inhaler] 2 puff IH BID #1 hfa.aer.ad 05/21/21 New Medications: Amoxicillin/Potassium Clav [Augmentin 500-125 Tablet] 1 each PO BID #10 tablet Docusate [Colace Cap] 100 mg PO BID #60 cap Mineral Oil 30 ml PO M,W,F #1000 ml predniSONE [Deltasone] 20 mg PO DAILY #5 tab Albuterol Neb [Proventil 0.083% Neb Soln] 2.5 mg NEB Q6HP #60 amp Budesonide/Formoterol Fumarate [Symbicort 160-4.5 Mcg Inhaler] 2 puff IH BID #1 hfa.aer.ad Physician Discharge Instructions: Patient presented with small bowel obstruction. Patient was seen and evaluated by surgery. Patient did require NG tube. Patient improved during the course of her stay. NG tube removed. Patient tolerating current diet. No intervention was required. Small bowel obstruction resolved. At discharge the patient will continue with amoxicillin 500 mg 1 pill twice daily for 5 more days. The patient will also be provided docusate daily as a stool softener. Mineral oil will also be provided as needed. Recommend follow-up with surgery in 1 week to follow-up his hospitalization and continue her care. Patient with COPD. Patient required oxygen during the course of her stay. Patient still requires home oxygen at discharge. Home oxygen arranged. For her COPD the patient will continue with prednisone 20 mg daily for the next 5 days. Patient should continue with albuterol and Atrovent nebs 1 unit dose 3 times a day as needed for shortness of breath. The patient will be provided Symbicort 2 puffs twice daily for COPD. Patient should follow-up with pulmonology as an outpatient to further address her COPD. Her oxygen can be weaned off over time. Maintain oxygen above 93%. Currently on 2 L per nasal cannula. Diet: Regular Activity: Fall precautions Followup: NONE,NONE [Primary Care Provider] - Time spent managing pt's care (in minutes): 55
[2021-05-21 15:16] VITALS: BP 120/69; TEMP 98.3
== END 2021-05-21 15:55 | disposition home or self-care (01) | DRG 389 ==
LOC: ER 19:56 → ERHOLD 05-18 01:31 → 2ND 05-19 17:58
PROVIDERS: ADMIT Hospitalist; ATTEND Family Medicine
DX: K56.609 Unspecified intestinal obstruction, unspecified as to partial versus complete obstruction (principal); R64 Cachexia; Z68.1 Body mass index [BMI] 19.9 or less, adult; F17.210 Nicotine dependence, cigarettes, uncomplicated; J44.9 Chronic obstructive pulmonary disease, unspecified; Z79.899 Other long term (current) drug therapy; Z99.81 Dependence on supplemental oxygen; Z79.52 Long term (current) use of systemic steroids; Z20.822 Contact with and (suspected) exposure to COVID-19
CPT/HCPCS: 36415; 71045; 74018; 74177; 80048; 80053; 80076; 81003; 81015; 83690; 83735; 83880; 84100; 84484; 85025; 85610; 93005; 94640; 94760; 96361; 96365; 96366; 96375; 99285; J2270; J2405; J2543; J3475; J3480; J7030; J7040; J7042; Q9967; U0003

== ENCOUNTER 2024-11-16 12:35 | Inpatient (IN) | payer OTHER ==
[2024-11-16] MEDS ORDERED: IPRATROPIUM BROM 0.5MG/2.5ML ONE (12:57)
[2024-11-16] MEDS ORDERED: METHYLPREDNISOLONE 40 MG INJ ONE (13:10)
[2024-11-16 13:30] LABS: Absolute Lymphocytes (CBC) 0.5 K/uL (0.7-4.9); Absolute Monocytes 0.6 K/uL (0.1-1.3); Absolute Neutrophil 10.2 K/uL (1.8-8.0); Basophils % 0.1 % (0-1.3); Eosinophils % 0.1 % (0-4.4); Hematocrit 42.9 % (36.0-45.0); Hemoglobin 13.7 g/dL (12.0-15.0); Lymphocytes % 4.7 % (15.3-44.8); MCV 93.8 fL (80-100); MPV 9.1 fL (7.6-11.3); Monocytes % 5.1 % (3.3-12.3); Platelets 507 thou/uL (152-406); RBC Red Blood Cell Count 4.57 M/uL (3.86-4.86); Red Cell Distribution Width 14.9 % (12.1-15.2)
[2024-11-16 13:34] LABS: PT Prothrombin Time 11.3 SECONDS (9.4-12.5); PTT, Activated Partial Thromb 37.7 SECONDS (24.3-36.9); Protime INR 1.01
[2024-11-16 13:40] LABS: Albumin 2.4 g/dL (3.4-5.0); Albumin/Globulin Ratio 0.5 (1.1-1.8); Anion Gap 6.8 mEq/L (5.0-15.0); Bilirubin Total 0.4 mg/dL (0.2-1.0); Potassium 3.8 mEq/L (3.5-5.1); Protein, Total 7.4 g/dL (6.4-8.2)
[2024-11-16 13:55] LABS: SARS-CoV-2 Antigen CONTROL BLUE LINE VIS/BG OK; SARS-CoV-2 Antigen Rapid Res Negative (Negative)
[2024-11-16] MEDS ORDERED: Levofloxacin500mg IV 500 MG/100 ML BAG IV ONE (13:59)
[2024-11-16 14:35] LABS: Blood Morphology Comment NOT SEEN (NOT SEEN); Platelet Estimate INCR; Platelets Clumped FEW; White Blood Cell Scan OK (OK)
--- NOTE | 2024-11-16 14:53 | RAD REPORT ---
EXAMINATION: ONE VIEW CHEST XR CLINICAL INDICATION: Female, 89 years old.,COPD;Dyspnea TECHNIQUE: Frontal chest projection is submitted. Examination is limited by patient positioning and t echnique. COMPARISON: 05/18/2021 FINDINGS: Background changes of COPD. New right layering moderate pleural effusion with new patchy airspace opa cities throughout the remainder of the left lung. Calcific nodules in the left lower lobe appears stable. No pneumothorax or left-sided effusion. The heart is normal in size. Mediastinal contours ar e unremarkable. IMPRESSION: No right pleuroparenchymal opacities, concerning for underlying pneumonia.
[2024-11-16] MEDS ORDERED: OSELTAMIVIR 75 MG CAP PO ONE (14:54)
--- NOTE | 2024-11-16 14:56 | EDPHYS ---
Physician Documentation [facility] Name: Sharlene Huerta Age: 89 yrs Sex: Female : 1935 Arrival Date: 11/16/2024 Time: 12:35 Bed 2 Private MD: ED Physician Radhames Ross HPI: 11/16 12:45 This 89 yrs old Female presents to ER via Wheelchair with complaints of Breathing cp Difficulty. 12:45 The patient has shortness of breath at rest. Onset: The symptoms/episode began/occurred cp today. Duration: The symptoms are continuous, and are steadily getting worse. Associated signs and symptoms: Pertinent positives: non-productive cough, Pertinent negatives: chest pain, fever, vomiting. Severity of symptoms: in the emergency department the symptoms have improved mildly. Patient with PMH significant for COPD, tobacco cigarette use who presents to ED by EMS with c/o shortness of breath. EMS reports patient has home oxygen. Unsure patient usual oxygen requirement. Historical: - Allergies: 12:40 Morphine; db 12:40 Hydromorphone; db - PMHx: 12:40 Chronic obstructive lung disease; db - PSHx: 12:40 Twisted Bowel; Umbilical hernia; db - Immunization history:: Adult Immunizations unknown. - Infectious Disease History:: Denies. - Social history:: Smoking status: Patient reports the use of cigarette tobacco products, smokes two packs cigarettes per day. ROS: 12:50 Constitutional: Negative for fever, poor PO intake, cp 12:50 Eyes: Negative for injury, pain, redness, and discharge, cp 12:50 Cardiovascular: Negative for chest pain, edema, 12:50 Respiratory: Positive for cough, shortness of breath, at rest. 12:50 Abdomen/GI: Negative for abdominal pain, vomiting, diarrhea, constipation, 12:50 Neuro: Negative for altered mental status, headache, syncope, 12:50 All other systems are negative, Exam: 12:55 Constitutional: The patient appears alert, awake, non-diaphoretic, non-toxic, well cp developed, frail, in obvious distress, moderately distressed, uncomfortable, 12:55 Head/Face: Normocephalic, atraumatic. cp 12:55 Eyes: Periorbital structures: appear normal, Conjunctiva: normal, no exudate, no injection, Sclera: no appreciated abnormality, Lids and lashes: appear normal, bilaterally, 12:55 ENT: External ear(s): are unremarkable, Nose: is normal, Mouth: Lips: dry, Oral mucosa: dry, Posterior pharynx: Airway: no evidence of obstruction, patent, 12:55 Neck: ROM/movement: Meningeal signs: are not present, nuchal rigidity, is not appreciated, 12:55 Chest/axilla: Inspection: normal, 12:55 Cardiovascular: Rate: normal, Rhythm: regular, Edema: pedal edema, that is mild, JVD: is not appreciated, 12:55 Respiratory: moderate respiratory distress is noted, Respirations: labored breathing, that is moderate, shallow respirations, that is moderate, Breath sounds: decreased breath sounds, that are moderate, are heard in the right posterior middle lobe and right posterior lower lobe, stridor, is not appreciated, wheezing: that is mild, is heard diffusely, 12:55 Abdomen/GI: Inspection: abdomen appears normal, Palpation: abdomen is soft and non-tender, in all quadrants, 12:55 Neuro: Orientation: to person, situation, Mentation: able to follow commands, Motor: moves all fours, Vital Signs: 12:40 BP 133 / 70; Pulse 93; Resp 32; Pulse Ox 78% on 2 lpm NC; db 15:00 Pulse 87; Resp 24; Temp 97.3(TE); Pulse Ox 84% on 5 lpm NC; ll1 16:15 BP 110 / 67; Pulse 87; Resp 24; Pulse Ox 100% on 5 lpm NC; ll1 16:43 BP 113 / 56; Pulse 87; Resp 24; Pulse Ox 88% on 5 lpm NC; ll1 17:01 BP 116 / 58; Pulse 87; Resp 26; Pulse Ox 92% on 5 lpm NC; ll1 18:22 BP 110 / 52; Pulse 87; Resp 26; Pulse Ox 93% on 5 lpm NC; ll1 MDM: 12:41 Medical Screening Exam initiated rn 13:00 Differential diagnosis: CHF exacerbation, Chronic Obstructive Pulmonary Disease cp pneumonia, pulmonary edema, Pulmonary Embolism Sepsis Unstable Angina. 15:00 Data reviewed: vital signs, nurses notes, lab test result(s), EKG, radiologic studies, cp plain films, and as a result, I will admit patient. 15:00 Antibiotic administration: Levaquin given. Management of patient was discussed with the cp following: Hospitalist: DR Lopez who will admit after discussion. I considered the following discharge prescriptions or medication management in the emergency department Medications were administered in the Emergency Department. See MAR. Care significantly affected by the following chronic conditions: Chronic Obstructive Pulmonary Disease. Counseling: I had a detailed discussion with the patient and/or guardian regarding the historical points, exam findings, and any diagnostic results supporting the discharge/admit diagnosis, lab results, radiology results, the need for further work-up and treatment in the hospital. Response to treatment: the patient's symptoms have mildly improved after treatment. 11/16 12:41 Order name: Blood Culture Adult (2) rn 11/16 12:41 Order name: CBC with Diff; Complete Time: 14:46 rn 11/16 13:52 Interpretation: Normal except: WBC 11.30; PLT 507; MELODY% 90.0; LYM% 4.7; NEUT A 10.2; cp LYMA 0.5. 11/16 12:41 Order name: CMP; Complete Time: 13:52 rn 11/16 13:53 Interpretation: Normal except: CO2 33; GLUC 183; BUN 20; CRE 0.53; GFR 89; AST 44; ALB cp 2.4; GLOB 5.0; A/G 0.5. 11/16 12:41 Order name: Lactate w/ 2H reflex if indic.; Complete Time: 13:52 rn 11/16 12:41 Order name: Protime (+inr); Complete Time: 13:52 rn 11/16 12:41 Order name: Ptt, Activated; Complete Time: 13:52 rn 11/16 12:41 Order name: Flu; Complete Time: 14:32 rn 11/16 14:32 Interpretation: Reviewed. cp 11/16 12:41 Order name: SARS-COV-2 Antigen Rapid; Complete Time: 14:32 rn 11/16 12:49 Order name: ABG; Complete Time: 16:52 cp 11/16 12:59 Order name: Urinalysis W/Microscopic cp 11/16 13:35 Order name: CBC Smear Scan; Complete Time: 14:46 EDMS 11/16 18:00 Order name: ABG Arterial Blood Gas EDMS 11/16 18:00 Order name: ABG Arterial Blood Gas EDMS 11/16 18:00 Order name: CBC with Automated Diff EDMS 11/16 18:00 Order name: CBC with Automated Diff EDMS 11/16 18:00 Order name: Comprehensive Metabolic Panel EDMS 11/16 18:00 Order name: Comprehensive Metabolic Panel EDMS 11/16 18:00 Order name: Lactate w/ 2H reflex if indic. EDMS 11/16 18:00 Order name: Lactate w/ 2H reflex if indic. EDMS 11/16 18:00 Order name: Lipid Profile EDMS 11/16 18:00 Order name: Lipid Profile EDMS 11/16 18:00 Order name: Magnesium EDMS 11/16 18:00 Order name: Magnesium EDMS 11/16 18:00 Order name: NT PRO-BNP EDMS 11/16 18:00 Order name: NT PRO-BNP EDMS 11/16 18:00 Order name: Phosphorus EDMS 11/16 18:00 Order name: Phosphorus EDMS 11/16 18:00 Order name: Procalcitonin EDMS 11/16 18:00 Order name: Procalcitonin EDMS 11/16 18:00 Order name: T4 Free EDMS 11/16 18:00 Order name: T4 Free EDMS 11/16 18:00 Order name: Thyroid Stimulating Hormone EDMS 11/16 18:00 Order name: Thyroid Stimulating Hormone EDIA 11/16 12:41 Order name: Chest Single View XRAY; Complete Time: 14:54 rn 11/16 15:09 Order name: CT Chest For PE Angio; Complete Time: 16:52 cp 11/16 15:57 Order name: CT Abd/Pelvis - Without Contrast; Complete Time: 16:52 cp 11/16 18:00 Order name: Thoracentesis w/ US Guide EDIA 11/16 18:00 Order name: CONS Physician Consult EDIA 11/16 18:00 Order name: Physical Therapy Consult EDIA 11/16 12:41 Order name: Cardiac monitoring; Complete Time: 13:16 rn 11/16 12:41 Order name: EKG - Nurse/Tech; Complete Time: 13:16 rn 11/16 12:41 Order name: IV Saline Lock - Large Bore; Complete Time: 13:16 rn 11/16 12:41 Order name: Labs collected and sent; Complete Time: 13:16 rn 11/16 12:41 Order name: O2 Per Protocol; Complete Time: 13:16 rn 11/16 12:41 Order name: O2 Sat Monitoring; Complete Time: 13:16 rn 11/16 12:41 Order name: Vital Signs; Complete Time: 13:16 rn 11/16 12:49 Order name: Wound dressing; Complete Time: 15:19 cp Administered Medications: 13:15 Drug: MethylPrednisoLONE IVP 80 mg IVP once Route: IVP; Site: left forearm; aa5 14:06 Follow up: Response: No adverse reaction ll1 13:35 Drug: DuoNeb Nebulize (2.5 mg - 0.5 mg) 3 ml Nebulizer once Route: Nebulizer; aa5 14:06 Follow up: Response: No adverse reaction ll1 14:06 Drug: levofloxacin IVPB 500 mg 100 ml IVPB once over 60 mins Volume: 100 ml; Route: ll1 IVPB; Infused Over: 60 mins; Site: left antecubital; 15:20 Follow up: Response: No adverse reaction; IV Status: Completed infusion; IV Intake: ll1 100ml 14:59 Drug: Oseltamivir PO 75 mg PO once Route: PO; ll1 15:20 Follow up: Response: No adverse reaction ll1 Disposition: 11/17 11:31 Co-signature as Attending Physician, Radhames Ross MD I reviewed the patient's care rn provided by the Advanced Practice Provider and agree with the diagnosis and treatment plan. Disposition Summary: 11/16/24 14:56 Hospitalization Ordered Notes: Hospitalization Status: Inpatient Admission cp Provider: Ynes Lopez cp Location: Telemetry/[facility] (Inpatient) cp Condition: Stable cp Problem: new cp Symptoms: have improved cp Bed/Room Type: Standard Room Assignment: 215(11/16/24 18:11) sp Diagnosis - Influenza due to other identified influenza virus with pneumonia cp - COPD/ Chronic obstructive pulmonary disease with acute lower respiratory infection cp Forms: - Medication Reconciliation Form cp - SBAR form cp - Leadership Thank You Letter cp Signatures: Dispatcher [employer] Jessie Hernandez Roman, MD MD rn Calderon, Audri RN RN aa5 Bakari Bacon PA PA cp Miri Silverio RN RN ll1 Carly Thrasher RN RN db Corrections: (The following items were deleted from the chart) 11/16 12:59 12:59 Urinalysis W/Microscopic+[id number].[id number] ordered. EDMS EDMS 13:16 12:41 Accucheck ordered. rn aa5 15:11 15:10 Unspecified open wound, left lower leg cp cp 18:11 14:56 cp sp
--- NOTE | 2024-11-16 14:56 | ER ---
Nurse's Notes [facility] Name: Sharlene Huerta Age: 89 yrs Sex: Female : 1935 Arrival Date: 11/16/2024 Time: 12:35 Bed 2 Private MD: Diagnosis: Influenza due to other identified influenza virus with pneumonia;COPD/ Chronic obstructive pulmonary disease with acute lower respiratory infection Presentation: 11/16 12:40 Chief complaint: Patient states: SOB ON O2 NC 5L AT HOME O2 78%. INCONTINENT OF STOOL, db WEAK. HAVING TROUBLE BREATHING. CAME FROM HOME WITHOUT HOME O2 TO ER. PT HAVING INCREASED RESPIRATIONS. Coronavirus screen: Client denies travel out of the [place] in the last 14 days. At this time, the client does not indicate any symptoms associated with coronavirus-19. Ebola Screen: Patient negative for fever greater than or equal to 101.5 degrees Fahrenheit, and additional compatible Ebola Virus Disease symptoms Patient denies exposure to infectious person. Patient denies travel to an Ebola-affected area in the 21 days before illness onset. No symptoms or risks identified at this time. Initial Sepsis Screen: Does the patient meet any 2 criteria? RR > 20 per min. Does the patient have a suspected source of infection? No. Patient's initial sepsis screen is negative. Risk Assessment: Do you want to hurt yourself or someone else? Patient reports no desire to harm self or others. Onset of symptoms was November 16, 2024. 12:40 Method Of Arrival: Wheelchair db 12:40 Acuity: BOB 2 db Triage Assessment: 12:40 General: Appears distressed, uncomfortable, Behavior is cooperative, anxious, restless. db Pain: Complains of pain in right foot. Neuro: Level of Consciousness is awake, alert, obeys commands, Oriented to person, place, time, situation. Respiratory: Reports shortness of breath air hunger labored breathing Airway is patent Respiratory effort is even, labored, Respiratory pattern is regular, symmetrical, Onset: The symptoms/episode began/occurred gradually, the patient has severe shortness of breath. Historical: - Allergies: 12:40 Morphine; db 12:40 Hydromorphone; db - PMHx: 12:40 Chronic obstructive lung disease; db - PSHx: 12:40 Twisted Bowel; Umbilical hernia; db - Immunization history:: Adult Immunizations unknown. - Infectious Disease History:: Denies. - Social history:: Smoking status: Patient reports the use of cigarette tobacco products, smokes two packs cigarettes per day. Screenin:18 [facility] ED Fall Risk Assessment (Adult) History of falling in the last 3 months, ll1 including since admission No falls in past 3 months (0 pts) Confusion or Disorientation No (0 pts) Intoxicated or Sedated No (0 pts) Impaired Gait No (0 pts) Mobility Assist Device Used No (0 pt) Altered Elimination No (0 pt) Score/Fall Risk Level 3 or more points = High Risk Maintained a safe environment, Hourly rounding (assess needs \T\ fall precautionary measures) done. Abuse screen: Denies threats or abuse. Nutritional screening: No deficits noted. Tuberculosis screening: No symptoms or risk factors identified. Assessment: 12:47 Reassessment: RT CALLED. db 13:15 Reassessment: No changes from previously documented assessment. Patient and/or family ll1 updated on plan of care and expected duration. Pain level reassessed. 14:05 Reassessment: Patient and/or family updated on plan of care and expected duration. Pain ll1 level reassessed. 15:02 Reassessment: No changes from previously documented assessment. Patient and/or family ll1 updated on plan of care and expected duration. Pain level reassessed. 15:34 Reassessment: No changes from previously documented assessment. Patient and/or family ll1 updated on plan of care and expected duration. Pain level reassessed. Patient is alert, oriented x 3, equal unlabored respirations, skin warm/dry/pink. 16:17 Reassessment: No changes from previously documented assessment. Patient and/or family ll1 updated on plan of care and expected duration. Pain level reassessed. 17:02 Reassessment: No changes from previously documented assessment. Patient and/or family ll1 updated on plan of care and expected duration. Pain level reassessed. 18:26 Cardiovascular: Rhythm is regular. Respiratory: Airway is patent Trachea midline ll1 Respiratory effort is labored, Respiratory pattern is symmetrical, tachypnea Breath sounds are diminished bilaterally. Vital Signs: 12:40 BP 133 / 70; Pulse 93; Resp 32; Pulse Ox 78% on 2 lpm NC; db 15:00 Pulse 87; Resp 24; Temp 97.3(TE); Pulse Ox 84% on 5 lpm NC; ll1 16:15 BP 110 / 67; Pulse 87; Resp 24; Pulse Ox 100% on 5 lpm NC; ll1 16:43 BP 113 / 56; Pulse 87; Resp 24; Pulse Ox 88% on 5 lpm NC; ll1 17:01 BP 116 / 58; Pulse 87; Resp 26; Pulse Ox 92% on 5 lpm NC; ll1 18:22 BP 110 / 52; Pulse 87; Resp 26; Pulse Ox 93% on 5 lpm NC; ll1 ED Course: 12:00 Missed attempt(s): 22 gauge in right antecubital area. Bleeding controlled, band aid ll1 applied, catheter tip intact. 12:36 Patient arrived in ED. am2 12:40 Arm band placed on Patient placed in an exam room. db 12:41 Radhames Ross MD is Attending Physician. rn 12:42 Bakari Bacon PA is PHCP. rn 12:47 Miri Silverio RN is Primary Nurse. ll1 12:50 Triage completed. db 12:55 First set of blood cultures drawn. Inserted saline lock: 20 gauge in left forearm, ll1 using aseptic technique. Blood collected. Flushed with 10 mL NS. 12:56 Chest Single View XRAY In Process Unspecified. EDMS 13:10 Initial lab(s) drawn, by me, sent to lab. Second set of blood cultures drawn. ll1 13:18 Patient has correct armband on for positive identification. Bed in low position. ll1 Provided Education on: ER procedures and process. 13:18 No provider procedures requiring assistance completed. ll1 13:34 Blood Culture Adult (2) Sent. ll1 14:55 Ynes Lopez MD is Hospitalizing Provider. cp 15:56 CT Chest For PE Angio In Process Unspecified. EDMS 16:04 CT Abd/Pelvis - Without Contrast In Process Unspecified. EDMS 18:27 Patient admitted, IV remains in place. ll1 Administered Medications: 13:15 Drug: MethylPrednisoLONE IVP 80 mg IVP once Route: IVP; Site: left forearm; aa5 14:06 Follow up: Response: No adverse reaction ll1 13:35 Drug: DuoNeb Nebulize (2.5 mg - 0.5 mg) 3 ml Nebulizer once Route: Nebulizer; aa5 14:06 Follow up: Response: No adverse reaction ll1 14:06 Drug: levofloxacin IVPB 500 mg 100 ml IVPB once over 60 mins Volume: 100 ml; Route: ll1 IVPB; Infused Over: 60 mins; Site: left antecubital; 15:20 Follow up: Response: No adverse reaction; IV Status: Completed infusion; IV Intake: ll1 100ml 14:59 Drug: Oseltamivir PO 75 mg PO once Route: PO; ll1 15:20 Follow up: Response: No adverse reaction ll1 Medication: 13:18 VIS not applicable for this client. ll1 Intake: 15:20 IV: 100ml; Total: 100ml. ll1 Outcome: 14:56 Decision to Hospitalize by Provider. cp 18:26 Admitted to Med/surg accompanied by tech, via wheelchair, room 215, with chart, Report ll1 called to faxed to [facility] at 182 18:26 Condition: stable 18:26 Instructed on the need for admit, 19:07 Patient left the ED. 1 Signatures: Dispatcher [employer] EDMS Radhames Ross MD MD rn Calderon, Audri RN RN aa5 Bakari Bacon PA PA Radhika Young am2 Miri Silverio RN RN ll1 Carly Thrasher RN RN db Corrections: (The following items were deleted from the chart) 16:17 16:15 BP 110 / 67; Pulse 87bpm; Resp 24bpm; Pulse Ox 90% 5 lpm Nasal Cannula; ll1 ll1
[2024-11-16 15:38] LABS: Arterial Blood Carboxyhemoglob 1.7 % (0-1.5); Blood Gas THB 13.1 g/dl (12-18); Blood O2 Saturation 81.9 % (92-98.5)
--- NOTE | 2024-11-16 16:28 | RAD REPORT ---
EXAM: CT Chest For Pe Angio TECHNIQUE: CT angiogram of the chest was performed following intravenous contrast administration, inc luding sagittal and coronal as well as maximum intensity projection reformats. One or more of the following dose reduction techniques were used: Automated exposure control, adjustment of the mA and k V according to patient size, and iterative reconstruction. Unless otherwise specified, incidental findings do not require dedicated imaging follow-up. INDICATION: [facility] SOB Bed Name: 2 Y COMPARISON: Chest radiograph of earlier the same day. FINDINGS: LINES/TUBES: None. PULMONARY ARTERIES: Main pulmonary arteries are normal in caliber. No filling defects within the pul monary arteries to suggest pulmonary embolus. LUNGS AND AIRWAYS: Advanced centrilobular emphysematous changes. Airspace opacities within the right lung lobes including dependent opacification in the right middle and lower lobes, and patchy opacities in the dependent right upper lobe as well. Fluid opacification of the right main bronchus d istally extending into the upper and intermediate branches. Calcified medial left basal 1.7 cm granuloma. PLEURA: Large right pleural effusion. Medial crescentic effusion component measuring up to 4 cm in th ickness, may represent a component of loculation.. HEART AND MEDIASTINUM: The visualized thyroid gland is normal. No mediastinal, hilar, or axillary lym phadenopathy. Heart is unremarkable. No pericardial effusion. SOFT TISSUES AND BONES: No acute osseous abnormality. No significant soft tissue finding. UPPER ABDOMEN: Unremarkable. IMPRESSION: Large right pleural effusion.. Crescentic component medially in the right upper lung, may reflect brant dence of loculation. Patchy airspace opacities in the dependent right lung as above, may reflect atelectasis, however supe rimposed pneumonia should be considered. Given the findings of pulmonary emphysematous changes mentioned above, please correlate clinically fo r a formal diagnosis of pulmonary emphysema. Pulmonary emphysema is considered an independent risk factor for lung cancer, consider evaluating the patient for a low dose CT lung cancer screening progr am. No evidence of pulmonary emboli.
--- NOTE | 2024-11-16 16:48 | RAD REPORT ---
EXAMINATION: CT Abdomen Pelvis Wo Contrast CLINICAL INDICATION: Female, 89 years old. ABDOMINAL DISTENTION TECHNIQUE: CT abdomen and pelvis was performed, without IV contrast, as per department protocol. Axia l, sagittal and coronal reconstructions were obtained. One or more of the following dose reduction techniques were used: Automated exposure control, adjustment of the mA and kV according to the patien t size, and iterative reconstruction. Unless otherwise specified, incidental findings do not require dedicated imaging follow-up. COMPARISON: CT abdomen pelvis 05/17/2021. FINDINGS: The lack of intravenous contrast limits the sensitivity of this exam for evaluation of solid visceral organs, vascular structures, and retroperitoneum. LOWER CHEST: Separately evaluated on CT chest of the same day. LIVER: Normal in size and contour. 6 mm hepatic focal hypoattenuating lesion appears stable and may r epresent a cyst. No suspicious focal lesion. BILIARY SYSTEM: No suspicious abnormalities. SPLEEN: Normal size. No focal lesion. PANCREAS: No mass, ductal dilation, or sonya-pancreatic fluid. ADRENALS: Normal; no mass. KIDNEYS AND URETERS: Normal size and contour. Excreted contrast within the urinary tracts limits eval uation for calculi No hydronephrosis. URINARY BLADDER: Normal contour. GASTROINTESTINAL TRACT: Large stool burden throughout the colon. No evidence of bowel obstruction, si gnificant free fluid, free air or abscess. APPENDIX: Normal appendix. LYMPH NODES: No lymphadenopathy. MUSCULOSKELETAL: No acute or suspicious osseous abnormality. ADDITIONAL FINDINGS: Diffuse body wall and retroperitoneal edema. Dense atherosclerotic calcification s of the abdominal aorta and its branches. IMPRESSION: No acute or concerning abnormalities in the abdomen or pelvis, with evaluation limited by lack of IV contrast. Diffuse body wall and retroperitoneal edema. Please correlate for fluid overload. Large stool burden throughout the colon. Lower lungs are separately evaluated on dedicated CTA chest of the same day
[2024-11-16] MEDS ORDERED: ONDANSETRON 4 MG/2 ML VIAL IV PRN (17:50)
[2024-11-16] MEDS ORDERED: ACETAMINOPHEN 500 MG TAB PO PRN (17:50)
[2024-11-16] MEDS: METHYLPREDNISOLONE 40 MG INJ IV SCH (20:56)
[2024-11-16] MEDS: FUROSEMIDE 40 MG/4 ML VIAL IV ONE (20:56)
[2024-11-16] MEDS ORDERED: VANCOMYCIN 1.25 GM in NA CHLORIDE 0.9% 250 ML IVPB SCH (21:00)
[2024-11-16] MEDS ORDERED: VANCOMYCIN 750 MG in NA CHLORIDE 0.9% 150 ML IVPB ONE (21:00)
[2024-11-16] MEDS ORDERED: ALBUTEROL 2.5 MG/3 ML NEB SOL NEB PRN (21:10)
[2024-11-16] MEDS: METHYLPREDNISOLONE 125 MG INJ IV ONE (21:12)
[2024-11-16] MEDS: ALBUTEROL 2.5 MG/3 ML NEB SOL NEB SCH (21:34)
[2024-11-16] MEDS: IPRATROPIUM BROM 0.5MG/2.5ML NEB SCH (21:34)
[2024-11-16] MEDS: VANCOMYCIN 500 MG/VIAL ONE (22:10)
[2024-11-16] MEDS: VANCOMYCIN 750 MG in NA CHLORIDE 0.9% 250 ML IVPB ONE (22:30)
[2024-11-16] MEDS: NA CHLORIDE 0.9% 250 ML ONE (23:08)
--- NOTE | 2024-11-16 23:39 | P.HP ---
Certification for Inpatient Patient admitted to: Inpatient With expected LOS: >2 Midnights Patient will require the following post-hospital care: None Practitioner: I am a practitioner with admitting privileges, knowledge of patient current condition, hospital course, and medical plan of care. Services: Services provided to patient in accordance with Admission requirements found in Title 42 Section 412.3 of the Code of Federal Regulations Patient History Date of Service: 11/16/24 Reason for admission: Shortness of breath History of Present Illness: Patient is an 89-year-old female who has a history of end-stage COPD who presented to the ER with shortness of breath. Patient was found to have influenza pneumonia. Patient had been on hospice about 2 years ago because of her COPD. However, because she had gained weight, and clinically, she had improved that she was able to get off of hospice. Patient lives by herself and she is able to do her own day-to-day living. Patient's granddaughter and mcmyqgek-aj-csq recently moved out of [facility] for job in [place]. Patient's txblbdvd-fr-tjg had come in to check on her and she was not acting like her normal self. This was a couple of days ago. She was really weak and when she stood from a chair she got lightheaded. Patient's wziqihbq-mo-nyh checked her oxygen saturations and was in the 70s so he called EMS and patient was brought into the emergency room for further evaluation. In the ER, patient had CT of the chest abdomen pelvis. Patient with a moderate right pleural effusion. [facility] x-ray from 2 years ago did not have a pleural effusion. This appears to be partially loculated. Plan is to get thoracentesis in a.m.. Fluid will be sent off for cytology as well as lab testing. Continue with IV antibiotics and antiviral therapy along with neb treatments. Continue with physical therapy evaluation. Spoke to the osqmaatr-ji-htj regarding her code status and right now she is a full code. Will need to readdress this with the granddaughter. Patient's granddaughter did state that when she was on hospice she wanted to be a DNAR. Will readdress this in AM once again. Pulmonary has been consulted, and will await further recommendations as well. Long-term prognosis remains poor. Allergies morphine Adverse Reaction (Intermediate, Verified 11/16/24 19:25) Shortness of breath hydromorphone [From Dilaudid] Adverse Reaction (Verified 11/16/24 19:25) Shortness of breath Home Medications: Ipratropium Neb [Atrovent*] 0.5 mg IH BID 05/18/21 Pediatric Multivitamin No.101 [Gummy] 1 each PO DAILY 05/18/21 Albuterol Neb [Proventil 0.083% Neb Soln] 2.5 mg NEB Q6HP #60 amp 05/20/21 Amoxicillin/Potassium Clav [Augmentin 500-125 Tablet] 1 each PO BID #10 tablet 05/20/21 Docusate [Colace Cap] 100 mg PO BID #60 cap 05/20/21 Mineral Oil 30 ml PO M,W,F #1000 ml 05/20/21 predniSONE [Deltasone] 20 mg PO DAILY #5 tab 05/20/21 Budesonide/Formoterol Fumarate [Symbicort 160-4.5 Mcg Inhaler] 2 puff IH BID #1 hfa.aer.ad 05/21/21 Ipratropium Neb [Atrovent Neb] 2.5 ml IH TID PRN #90 amp 05/21/21 - Past Medical/Surgical History Has patient received pneumonia vaccine in the past: No Diabetic: No -: COPD -: h/o of SBO -: Ventral hernia -: 2 abdominal surgeries, hernia repair in the past Psychosocial/ Personal History: lives with granddaughter - Family History Father Family History: Reviewed- Non-Contributory - Social History Smoking Status: Current every day smoker Alcohol use: No CD- Drugs: No Caffeine use: Yes Place of Residence: Home Review of Systems 10-point ROS is otherwise unremarkable Physical Examination - Vital Signs Temperature: 97.3 F Blood Pressure: 107/56 Pulse: 83 Respirations: 28 Pulse Ox (%): 97 - Physical Exam General: Oriented x2, Cachectic, Mild distress HEENT: Atraumatic, Normocephalic Neck: Supple, 2+ carotid pulse no bruit Respiratory: Crackles/rales (right basilar and diminshed), Expiratory wheezes Cardiovascular: Regular rate/rhythm, Normal S1 S2, Systolic murmur Gastrointestinal: Normal bowel sounds, Soft and benign, Non-distended, No rebound, No guarding, Tenderness Musculoskeletal: No clubbing, No swelling Neurological: Abnormal gait, Abnormal strength Lymphatics: No axilla or inguinal lymphadenopathy - Studies Laboratory Data (last 24 hrs) 11/16/24 11/16/24 11/16/24 13:10 13:10 13:10 WBC 11.30 H Hgb 13.7 Hct 42.9 Plt Count 507 H PT 11.3 INR 1.01 APTT 37.7 H Sodium 139 Potassium 3.8 BUN 20 H Creatinine 0.53 L Glucose 183 H Total Bilirubin 0.4 AST 44 H ALT 34 Alkaline Phosphatase 113 Microbiology Data (last 24 hrs): 11/16/24 13:15 Nasopharnyx Influenza Type A Antigen Screen - Final 11/16/24 13:15 Nasopharnyx Influenza Type B Antigen Screen - Final Assessment & Plan - Problems (Diagnosis) (1) Influenzal bronchopneumonia Current Visit: Yes Status: Acute (2) Pleural effusion Current Visit: Yes Status: Acute (3) COPD with acute exacerbation Current Visit: Yes Status: Acute (4) Tobacco abuse Current Visit: Yes Status: Acute - Plan 1. Continue with IV antibiotics along with antiviral therapy. 2. Awaiting sputum and blood culture 3. Repeat chest x-ray 4. Will proceed with CT scan of the chest, abdomen and pelvis. Thoracentesis in a.m.. 5. Respiratory isolation 6. Continue with nebs as needed; continue with IV steroids. 7. O2 per protocol 8. Echocardiogram in a.m. 9. Repeat labs including CBC and renal function in a.m. 10. Patient with a prior history of advanced COPD on hospice. Patient has a DNR in the past. Will discuss with granddaughter in a.m.. 11. GI and DVT prophylaxis Discharge Plan: Home Plan to discharge in: Greater than 2 days - Advance Directives Does patient have a Living Will: No Does patient have a Durable POA for Healthcare: No - Code Status/Comfort Care Code Status Assessed: Yes Code Status: Full Code Critical Care: Yes Time Spent Managing PTS Care (In Minutes): 50
[2024-11-17] MEDS: PIPER TAZO 3.375 GM in NA CHLORIDE 0.9% 100 ML IV SCH (01:44)
[2024-11-17 05:35] LABS: Absolute Lymphocytes (CBC) 0.3 K/uL (0.7-4.9); Absolute Monocytes 0.3 K/uL (0.1-1.3); Absolute Neutrophil 8.2 K/uL (1.8-8.0); Basophils % 0.1 % (0-1.3); Hematocrit 35.5 % (36.0-45.0); Hemoglobin 11.8 g/dL (12.0-15.0); Lymphocytes % 3.8 % (15.3-44.8); MCH 30.8 pg (27.0-35.0); MCHC 33.2 g/dL (32.0-36.0); MCV 92.7 fL (80-100); MPV 8.8 fL (7.6-11.3); Monocytes % 3.9 % (3.3-12.3); Neutrophils % 92.2 % (41.7-73.7); Platelets 459 thou/uL (152-406); RBC Red Blood Cell Count 3.83 M/uL (3.86-4.86); Red Cell Distribution Width 14.6 % (12.1-15.2)
[2024-11-17 05:58] LABS: Arterial Blood Carboxyhemoglob 0.9 % (0-1.5); Blood Gas Oxyhemoglobin 93.8 % (94-97); Blood O2 Saturation 95.8 % (92-98.5)
[2024-11-17 05:59] LABS: Albumin 2.2 g/dL (3.4-5.0); Albumin/Globulin Ratio 0.5 (1.1-1.8); Anion Gap 6.7 mEq/L (5.0-15.0); Bilirubin Total 0.4 mg/dL (0.2-1.0); Globulin 4.2 g/dL (2.3-3.5); Magnesium 2.1 mg/dL (1.6-2.4); Phosphorus 3.8 mg/dL (2.5-4.9); Potassium 3.7 mEq/L (3.5-5.1); Protein, Total 6.4 g/dL (6.4-8.2); Thyroid Stimulating Hormone 0.179 uIU/mL (0.358-3.740)
[2024-11-17 05:59] LABS: Blood Gas THB 11.7 g/dl (12-18)
[2024-11-17] MEDS: ENOXAPARIN 40 MG/0.4 ML SQ SCH (08:20)
[2024-11-17] MEDS: OSELTAMIVIR 30 MG CAP PO SCH (08:28)
[2024-11-17] MEDS ORDERED: FUROSEMIDE 20 MG/ 2ML VIAL IV ONE (09:45)
[2024-11-17] MEDS: ALBUMIN HUMAN 25% 100 ML IV SCH (09:57)
[2024-11-17] MEDS ORDERED: ALBUMIN HUMAN 25% 100 ML IV SCH (10:30)
[2024-11-17] MEDS: FUROSEMIDE 20 MG/ 2ML VIAL IV SCH (10:45)
[2024-11-17] MEDS: KCL 20 MEQ/100 mL IVPB 20 MEQ/100 ML BAG IV SCH (11:03)
--- NOTE | 2024-11-17 12:14 | RAD REPORT ---
EXAMChest CLINICAL HISTORY: Pleural effusion. TECHNIQUE: Sonographic evaluation of the right pleural space performed FINDINGS: Moderate to large right pleural effusion is present. A component of the effusion is loculated mediall y.
--- NOTE | 2024-11-17 12:37 | P.CNS ---
Date of Consult: 11/17/24 Reason for Consult: Right-sided pleural effusion Chief Complaint: Shortness of breath History of Present Illness: Patient is 89 years of age with a history of terminal COPD son present at the bedside history obtained from the son apparently this happened rather suddenly she became disoriented the day prior to admission interestingly patient was on hospice care that was discontinued has a history of COPD in an active smoker denies any fever chills cough congestion or chest pain to have a significant loculated effusion on the right side she uses oxygen 5 L a minute and a bronchodilator still continues to smoke Allergies morphine Adverse Reaction (Intermediate, Verified 11/16/24 19:25) Shortness of breath hydromorphone [From Dilaudid] Adverse Reaction (Verified 11/16/24 19:25) Shortness of breath Home Medications: Ipratropium Neb [Atrovent*] 0.5 mg IH BID 05/18/21 Pediatric Multivitamin No.101 [Gummy] 1 each PO DAILY 05/18/21 Albuterol Neb [Proventil 0.083% Neb Soln] 2.5 mg NEB Q6HP #60 amp 05/20/21 Amoxicillin/Potassium Clav [Augmentin 500-125 Tablet] 1 each PO BID #10 tablet 05/20/21 Docusate [Colace Cap] 100 mg PO BID #60 cap 05/20/21 Mineral Oil 30 ml PO M,W,F #1000 ml 05/20/21 predniSONE [Deltasone] 20 mg PO DAILY #5 tab 05/20/21 Budesonide/Formoterol Fumarate [Symbicort 160-4.5 Mcg Inhaler] 2 puff IH BID #1 hfa.aer.ad 05/21/21 Ipratropium Neb [Atrovent Neb] 2.5 ml IH TID PRN #90 amp 05/21/21 - Past Medical/Surgical History Diabetic: No -: COPD -: h/o of SBO -: 2 abdominal surgeries, hernia repair in the past Psychosocial/ Personal History: lives with granddaughter - Family History Father Family History: Reviewed- Non-Contributory - Social History Smoking Status: Current every day smoker Alcohol use: No CD- Drugs: No Caffeine use: Yes Place of Residence: Home Review of Systems 10-point ROS is otherwise unremarkable General: Weakness Respiratory: Shortness of Breath Physical Examination Temp Pulse Resp BP Pulse Ox 97.4 F 71 32 H 87/58 L 100 11/17/24 09:00 11/17/24 11:00 11/17/24 11:00 11/17/24 11:00 11/17/24 11:00 General: Alert, Oriented x3 Respiratory: Diminished (Initially on the right side) Cardiovascular: No edema, Regular rate/rhythm, Normal S1 S2 Laboratory Data (last 24 hrs) 11/16/24 11/16/24 11/16/24 13:10 13:10 13:10 WBC 11.30 H Hgb 13.7 Hct 42.9 Plt Count 507 H PT 11.3 INR 1.01 APTT 37.7 H Sodium 139 Potassium 3.8 BUN 20 H Creatinine 0.53 L Glucose 183 H Total Bilirubin 0.4 AST 44 H ALT 34 Alkaline Phosphatase 113 - Problems (1) Loculated pleural effusion Current Visit: Yes Status: Acute Plan: Patient is 89 years of age with terminal COPD admitted with a loculated effusion on the right side and pneumonia patient's white count is declining new with broad-spectrum antibiotics including vancomycin discontinue steroids to a tertiary care facility for decortication add meropenem blood cultures are pending
[2024-11-17] MEDS: Meropenem 1,000 MG in NA CHLORIDE 0.9% 100 ML IV SCH (12:59)
--- NOTE | 2024-11-17 13:24 | ECHO ---
HEIGHT: 4 ft 10 in WEIGHT: 65 lb 0 oz DATE OF STUDY: 11/17/[address]: Ynes Lopez MD 2-DIMENSIONAL: YES M.MODE: YES DOPPLER: YES COLOR FLOW: YES TDS: NO PORTABLE: YES DEFINITY: NO BUBBLE STUDY: NO DIAGNOSIS: CONGESTIVE HEART FAILURE CARDIAC HISTORY: CATHERIZATION: SURGERY: PROSTHETIC VALVE: PACEMAKER: MEASUREMENTS (cm) DIASTOLIC (NORMALS) SYSTOLIC (NORMALS) IVSd 0.7 (0.6-1.2) LA Diam 2.2 (1.9-4.0) LVEF 84% LVIDd 3.8 (3.5-5.7) LVIDs 1.8 (2.0-3.5) %FS 52% LVPWd 0.7 (0.6-1.2) Ao Diam 2.5 (2.0-3.7) 2 DIMENSIONAL ASSESSMENT: RIGHT ATRIUM: NORMAL LEFT ATRIUM: NORMAL RIGHT VENTRICLE: NORMAL LEFT VENTRICLE: NORMAL TRICUSPID VALVE: MILD TRICUSPID REGURGITATION MITRAL VALVE: TRACE OF MITRAL REGURGITATION PULMONIC VALVE: NORMAL AORTIC VALVE: TRACE OF AORTIC REGURGITATION PERICARDIAL EFFUSION: NONE AORTIC ROOT: NORMAL LEFT VENTRICULAR WALL MOTION: NORMAL. DOPPLER/COLOR FLOW: GRADE I DIASTOLIC DYSFUNCTION. COMMENTS: 1. NORMAL LEFT VENTRICULAR SYSTOLIC FUNCTION, 60-65%, NORMAL WALL MOTION. 2. GRADE I DIASTOLIC DYSFUNCTION. 3. NORMAL FILLING PRESSURE (RIGHT ATRIAL PRESSURE 0-5mmHg) TECHNOLOGIST: TIANNA GREENBERG
[2024-11-17] MEDS: POTASSIUM CL SA 10 MEQ TAB PO ONE (14:00)
[2024-11-17] MEDS: VANCOMYCIN 0.75 GM in NA CHLORIDE 0.9% 150 ML IVPB SCH (15:49)
--- NOTE | 2024-11-17 23:45 | P.PN ---
Subjective Date of Service: 11/17/24 Spoke with pulmonary and they wanted a chest ultrasound which revealed partially loculated pleural effusion. They recommended transferring the patient to a tertiary care facility for VATS procedure. Will go ahead and initiate transfer at this time. Patient was reluctant to be transferred; however, her family spoke with her and currently she is agreeable. She also does not want to be resuscitated. I did speak to the patient's medical power of health care attorney, who is her granddaughter. Will work on transfer to a tertiary care facility for possible VATS procedure. Review of Systems is unable to be obtained Physical Examination - Vital Signs Temperature: 97.3 F Blood Pressure: 107/56 Pulse: 83 Respirations: 28 Pulse Ox (%): 97 - Physical Exam General: Alert, In no apparent distress, Oriented x2, Mild distress, Confused Respiratory: Diminished, Expiratory wheezes Cardiovascular: Regular rate/rhythm, Normal S1 S2 Gastrointestinal: Normal bowel sounds, Soft and benign, Non-distended, No rebound, No guarding Musculoskeletal: No clubbing, No erythema, Swelling Integumentary: No rashes, No warmth, No cyanosis Neurological: Sensation intact, Cranial nerves 3-12 intact, Abnormal gait, Abnormal strength Assessment & Plan - Problems (Diagnosis) (1) Influenzal bronchopneumonia Current Visit: Yes Status: Acute (2) Pleural effusion Current Visit: Yes Status: Acute (3) COPD with acute exacerbation Current Visit: Yes Status: Acute (4) Tobacco abuse Current Visit: Yes Status: Acute - Plan 1. Continue with IV antibiotics along with antiviral therapy. Continue with IV steroids. 2. Awaiting culture results 3. Repeat chest x-ray 4. CT scan of the chest, abdomen and pelvis was reviewed. Plan is to get chest ultrasound today which revealed partial loculated pleural effusion. Pulmonary recommended transfer to a tertiary care facility. Patient may need VATS procedure. Patient initially was not wanting to transfer but the family was able to speak to her and she is agreeable at this time. Transfer initiated. 5. Respiratory isolation 6. Continue with nebs as needed; continue with IV steroids. 7. O2 per protocol 8. Echocardiogram pending 9. Repeat labs 10. Patient with a prior history of advanced COPD on hospice. Patient will benjy DNAR. 11. GI and DVT prophylaxis Discharge Plan: Transfer (Initiated to [facility]) Plan to discharge in: Greater than 2 days - Advance Directives Does patient have a Living Will: No Does patient have a Durable POA for Healthcare: No - Code Status/Comfort Care Code Status: Do Not Attempt Resuscitat Critical Care: Yes Time Spent Managing PTS Care (In Minutes): 45
[2024-11-18] MEDS: ALBUMIN HUMAN 25% 100 ML IV ONE (00:49)
[2024-11-18 06:57] LABS: Absolute Lymphocytes (CBC) 0.8 K/uL (0.7-4.9); Absolute Neutrophil 10.2 K/uL (1.8-8.0); Basophils % 0.1 % (0-1.3); Eosinophils % 0.4 % (0-4.4); Hematocrit 35.6 % (36.0-45.0); Hemoglobin 11.4 g/dL (12.0-15.0); Lymphocytes % 6.4 % (15.3-44.8); MCH 29.8 pg (27.0-35.0); MCHC 31.9 g/dL (32.0-36.0); MCV 93.4 fL (80-100); Monocytes % 8.6 % (3.3-12.3); Neutrophils % 84.5 % (41.7-73.7); Platelets 416 thou/uL (152-406); RBC Red Blood Cell Count 3.81 M/uL (3.86-4.86); Red Cell Distribution Width 14.6 % (12.1-15.2)
[2024-11-18 07:12] LABS: Albumin 2.4 g/dL (3.4-5.0); Albumin/Globulin Ratio 0.6 (1.1-1.8); Anion Gap 6.8 mEq/L (5.0-15.0); Bilirubin Total 0.3 mg/dL (0.2-1.0); Globulin 3.9 g/dL (2.3-3.5); Phosphorus 2.1 mg/dL (2.5-4.9); Potassium 3.8 mEq/L (3.5-5.1); Protein, Total 6.3 g/dL (6.4-8.2)
[2024-11-18 07:49] LABS: Calcium Oxalate Crystals- Ur Moderate /HPF (None Seen); Specific Gravity > 1.030 (1.005-1.030); Sqamous Epithelial <5 /HPF (None Seen); Urine Bacteria None Seen /HPF (<20); Urine Bilirubin NEGATIVE (Negative); Urine Blood Negative (Negative); Urine Clarity Clear (Clear); Urine Color Yellow (Yellow); Urine Culture Reflex Order NOT NEEDED; Urine Glucose NEGATIVE (Negative); Urine Ketones TRACE (Negative); Urine Micro Reflex YN NO BILL MICROSCOPIC; Urine Nitrite NEGATIVE (Negative); Urine Protein TRACE (Negative); Urine RBC <5 /HPF (None Seen); Urine Urobilinogen Normal (Normal); Urine WBC <5 /HPF (<5); Urine pH 5.5 (5.0-7.0)
[2024-11-18] MEDS ORDERED: VANCOMYCIN 500 MG in NA CHLORIDE 0.9% 100 ML IVPB SCH (10:00)
[2024-11-18] MEDS: POTASSIUM 25 MEQ EFFERV TAB PO ONE (14:20)
[2024-11-18 16:13] VITALS: O2SAT 100
--- NOTE | 2024-11-18 18:38 | P.PN ---
Subjective Date of Service: 11/18/24 Chief Complaint: Shortness of breath Patient has been alternating between CPAP and high flow oxygen. He has been awake and interactive. Physical Examination - Vital Signs Temperature: 97.1 F Blood Pressure: 139/59 Pulse: 97 Respirations: 29 Pulse Ox (%): 89 Assessment And Plan - Plan Physical Exam General: Alert, Oriented x2, Mild distress, Confused, cachectic Respiratory: Markedly diminished on the right, Expiratory wheezes Cardiovascular: Regular rate/rhythm, Normal S1 S2 Gastrointestinal: Normal bowel sounds, Soft and benign, Non-distended, No rebound, No guarding Musculoskeletal: No clubbing, No erythema, Swelling Integumentary: No rashes, No warmth, No cyanosis Neurological: Sensation intact, Cranial nerves 3-12 intact, Abnormal gait, Abnormal strength Diagnosis Influenzal bronchopneumonia Pleural effusion COPD with acute exacerbation Tobacco abuse Severe protein calorie malnutrition Plan: Continue with IV antibiotics along with antiviral therapy. Continue with IV steroids. CT scan of the chest, abdomen and pelvis was reviewed. CT still shows large right-sided loculated pleural effusion. VATS recommended. Transferred to [facility]. I spoke to cardiothoracic surgeon who was accepted patient for transfer. Respiratory isolation Continue with nebs as needed; continue with IV steroids. Echocardiogram shows normal EF. Monitor labs. Patient with a prior history of advanced COPD on hospice. She is currently DNR. DVT prophylaxis: Lovenox
[2024-11-18] MEDS: VANCOMYCIN 0.75 GM in NA CHLORIDE 0.9% 150 ML IVPB SCH (22:10)
[2024-11-19] MEDS: LORazepam 2 MG/ML VIAL IV ONE ×2 (01:10→09:41)
[2024-11-19 05:01] LABS: Absolute Eosinophils 0.1 K/uL (0-0.5); Absolute Lymphocytes (CBC) 0.6 K/uL (0.7-4.9); Absolute Monocytes 0.7 K/uL (0.1-1.3); Absolute Neutrophil 8.2 K/uL (1.8-8.0); Eosinophils % 0.9 % (0-4.4); Hematocrit 33.5 % (36.0-45.0); Hemoglobin 10.8 g/dL (12.0-15.0); Lymphocytes % 6.4 % (15.3-44.8); MCH 30.2 pg (27.0-35.0); MCHC 32.4 g/dL (32.0-36.0); MCV 93.4 fL (80-100); Monocytes % 6.8 % (3.3-12.3); Platelets 446 thou/uL (152-406); RBC Red Blood Cell Count 3.59 M/uL (3.86-4.86); Red Cell Distribution Width 14.6 % (12.1-15.2)
[2024-11-19 05:05] LABS: Neutrophils % 85.9 % (41.7-73.7)
[2024-11-19 05:11] LABS: Albumin 2.2 g/dL (3.4-5.0); Albumin/Globulin Ratio 0.7 (1.1-1.8); Anion Gap 2.1 mEq/L (5.0-15.0); Bilirubin Total 0.3 mg/dL (0.2-1.0); Globulin 3.3 g/dL (2.3-3.5); Phosphorus 2.2 mg/dL (2.5-4.9); Potassium 4.1 mEq/L (3.5-5.1); Protein, Total 5.5 g/dL (6.4-8.2)
[2024-11-19] MEDS ORDERED: SODIUM PHOSPHATE 15 MM in NA CHLORIDE 0.9% 250 ML IV ONE (07:30)
[2024-11-19] MEDS ORDERED: Mupirocin NASAL 2 APPL/1 GM TUBE NAS SCH (09:00)
--- NOTE | 2024-11-19 19:27 | P.DS ---
Admission Date: 11/16/24 Discharge Date: 11/19/24 Disposition: TRANSFER TO [facility] Discharge Condition: FAIR Reason for Admission: Shortness of breath Brief History of Present Illness: Patient is an 89-year-old female who has a history of end-stage COPD who presented to the ER with shortness of breath. Patient was found to have influenza pneumonia. Patient had been on hospice about 2 years ago because of her COPD. However, because she had gained weight, and clinically, she had improved that she was discharged from hospice. Patient lives by herself and she has been carrying out her own day-to-day living. Patient's granddaughter and [id number] recently moved out of state for job in [place]. Patient's [id number]-phy had come in to check on her and she was not acting like her normal self. She was really weak. Patient's [id number] checked her oxygen saturations and was in the 70s so he called EMS and patient was brought into the emergency room for further evaluation. In the ER, patient had CT of the chest abdomen pelvis. Patient with a moderate right pleural effusion. Chest x-ray from 2 years ago did not have a pleural effusion which appears to be partially loculated. Patient's granddaughter did state that when she was on hospice she wanted to be a DNAR. Patient was hospitalized for further management. Hospital Course: Diagnosis Acute respiratory failure with hypoxia Influenzal bronchopneumonia Pleural effusion COPD with acute exacerbation Tobacco abuse Severe protein calorie malnutrition Patient admitted to ICU. He was started on IV antibiotics and antiviral therapy as well as IV steroid CT chest showed large right-sided loculated pleural effusion. Echocardiogram shows normal EF. VATS recommended. Patient was using BiPAP and alternating with high flow oxygen. Transfer to [facility] initiated. Patient accepted for transfer. Patient transferred in stable condition to [facility]. Vital Signs/Physical Exam: Temp Pulse Resp BP Pulse Ox 97.6 F 74 30 H 127/96 H 100 11/19/24 08:00 11/19/24 09:00 11/19/24 09:00 11/19/24 09:00 11/19/24 09:00 General: Confused, Other (Awake) HEENT: Other (BiPAP) Neck: JVD not distended Respiratory: Diminished Cardiovascular: Regular rate/rhythm Gastrointestinal: Soft and benign, Non-distended Musculoskeletal: No swelling Laboratory Data at Discharge: WBC 9.60 thou/uL (4.3-10.9) 11/19/24 04:30 Hgb 10.8 g/dL (12.0-15.0) L 11/19/24 04:30 Hct 33.5 % (36.0-45.0) L 11/19/24 04:30 Plt Count 446 thou/uL (152-406) H 11/19/24 04:30 PT 11.3 SECONDS (9.4-12.5) 11/16/24 13:10 INR 1.01 11/16/24 13:10 APTT 37.7 SECONDS (24.3-36.9) H 11/16/24 13:10 Sodium 141 mEq/L (136-145) 11/19/24 04:30 Potassium 4.1 mEq/L (3.5-5.1) 11/19/24 04:30 BUN 26 mg/dL (7-18) H 11/19/24 04:30 Creatinine 0.36 mg/dL (0.55-1.02) L 11/19/24 04:30 Glucose 115 mg/dL (74-106) H 11/19/24 04:30 Phosphorus 2.2 mg/dL (2.5-4.9) L 11/19/24 04:30 Magnesium 2.0 mg/dL (1.6-2.4) 11/19/24 04:30 Total Bilirubin 0.3 mg/dL (0.2-1.0) 11/19/24 04:30 AST 73 U/L (15-37) H 11/19/24 04:30 ALT 81 U/L (13-56) H 11/19/24 04:30 Alkaline Phosphatase 81 U/L (45-117) 11/19/24 04:30 Triglycerides 104 mg/dL (<150) 11/17/24 05:21 Cholesterol 180 mg/dL (<200) 11/17/24 05:21 HDL Cholesterol 50 mg/dL (40-60) 11/17/24 05:21 Cholesterol/HDL Ratio 3.60 11/17/24 05:21 Home Medications: Ipratropium Neb [Atrovent*] 0.5 mg IH BID 05/18/21 Pediatric Multivitamin No.101 [Gummy] 1 each PO DAILY 05/18/21 Albuterol Neb [Proventil 0.083% Neb Soln] 2.5 mg NEB Q6HP #60 amp 05/20/21 Amoxicillin/Potassium Clav [Augmentin 500-125 Tablet] 1 each PO BID #10 tablet 05/20/21 Docusate [Colace Cap] 100 mg PO BID #60 cap 05/20/21 Mineral Oil 30 ml PO M,W,F #1000 ml 05/20/21 predniSONE [Deltasone] 20 mg PO DAILY #5 tab 05/20/21 Budesonide/Formoterol Fumarate [Symbicort 160-4.5 Mcg Inhaler] 2 puff IH BID #1 hfa.aer.ad 05/21/21 Ipratropium Neb [Atrovent Neb] 2.5 ml IH TID PRN #90 amp 05/21/21 Followup: NONE,NONE [Primary Care Provider] - Time spent managing pt's care (in minutes): 38
--- NOTE | 2024-11-20 12:11 | EKG ---
Test Date: 2024-11-16 Test Time: 13:17:39 Corporate Risk Analyst: STANISLAV MEASUREMENT RESULTS: Intervals: Rate: 86 OK: 128 QRSD: 72 QT: 452 QTc: 540 [place]: P: 69 OK: 128 QRS: 76 T: 89 INTERPRETIVE STATEMENTS: Sinus rhythm with occasional premature ventricular complexes and fusion complexes Anteroseptal infarct, age undetermined Inferior injury pattern Prolonged QT ACUTE IN Consider right ventricular involvement in acute inferior infarct Abnormal ECG No previous ECG available for comparison Electronically Signed On 11-20-24 12:08:38 INSPECTOR [employer] by Kishore Aguayo
--- NOTE | 2024-11-20 12:11 | EKG ---
Test Date: 2024-11-16 Test Time: 13:24:46 Practice Billing Associate: STANISLAV MEASUREMENT RESULTS: Intervals: Rate: 119 DC: QRSD: 154 QT: 476 QTc: 669 [place]: P: DC: QRS: 74 T: -83 INTERPRETIVE STATEMENTS: Atrial fibrillation with premature ventricular or aberrantly conducted complexes Nonspecific intraventricular block Abnormal ECG Compared to ECG 11/16/2024 13:22:27 Ventricular premature complex(es) now present Sinus rhythm no longer present Fusion complex(es) no longer present Myocardial infarct finding no longer present Prolonged QT interval no longer present Electronically Signed On 11-20-24 12:08:26 MRI MANAGER by Kishore Aguayo
--- NOTE | 2024-11-20 12:11 | EKG ---
Test Date: 2024-11-16 Test Time: 13:22:27 Nuclear Equipment Operator: STANISLAV MEASUREMENT RESULTS: Intervals: Rate: 86 OR: 118 QRSD: 76 QT: 552 QTc: 660 [place]: P: 70 OR: 118 QRS: 69 T: -85 INTERPRETIVE STATEMENTS: Sinus rhythm with fusion complexes Septal infarct, age undetermined Prolonged QT Abnormal ECG Compared to ECG 11/16/2024 13:17:39 Ventricular premature complex(es) no longer present Myocardial infarct finding still present Electronically Signed On 11-20-24 12:08:31 HEATER OPERATOR by Kishore Aguayo
[2024-11-21 01:03] VITALS: BP 127/96; TEMP 97.6
[2024-11-21 01:47] VITALS: BMI 13.8
== END 2024-11-19 09:45 | disposition short-term general hospital (02) | DRG 193 ==
LOC: ER 12:35 → ERHOLD 17:50 → 2ND 18:23 → 3RD-ICU 22:10
PROVIDERS: ADMIT Hospitalist; ATTEND Internal Medicine
PROC: 5A0935A Assistance with Respiratory Ventilation, Less than 24 Consecutive Hours, High Flow/Velocity Cannula (ICD-10-PCS; 2024-11-17)
PROC: 5A09357 Assistance with Respiratory Ventilation, Less than 24 Consecutive Hours, Continuous Positive Airway Pressure (ICD-10-PCS; principal; 2024-11-18)
DX: J10.00 Influenza due to other identified influenza virus with unspecified type of pneumonia (principal); E43 Unspecified severe protein-calorie malnutrition; J96.01 Acute respiratory failure with hypoxia; J44.0 Chronic obstructive pulmonary disease with (acute) lower respiratory infection; J44.1 Chronic obstructive pulmonary disease with (acute) exacerbation; R64 Cachexia; Z68.1 Body mass index [BMI] 19.9 or less, adult; J90 Pleural effusion, not elsewhere classified; F17.200 Nicotine dependence, unspecified, uncomplicated; Z99.81 Dependence on supplemental oxygen; Z88.5 Allergy status to narcotic agent
CPT/HCPCS: 32555; 36415; 36600; 71045; 71275; 74176; 76604; 80053; 80061; 80202; 81001; 82805; 83605; 83735; 83880; 84100; 84145; 84439; 84443; 85025; 85610; 85730; 87040; 87804; 87811; 93005; 93306; 94640; 94660; 96365; 96375; 99285; J1650; J1940; J2185; J2543; J2919; J3480; J7050; J7613; J7644; P9047; Q9967